=== PATIENT | male | born 1940 | race Caucasian/White ===

== ENCOUNTER → 2016-10-30 | Outpatient (REF) | payer MEDICARE, MEDICAID ==
[~2016-10-30] MED LIST: AMLO25TA PO; AMLO5TAB2 PO; NORV5TAB PO; ROXI1TAB2 PO; TYLE325T5 PO
[2016-10-30 13:16] LABS: ALBUMIN 4.2 GM/DL (3.2-5.2); ALBUMIN/GLOBULIN RATIO 1.14 (1.00-1.93); BILIRUBIN,TOTAL 0.8 MG/DL (0.2-1.0); CALCIUM LEVEL 9.1 MG/DL (8.8-10.2); CREATININE FOR GFR 1.44 MG/DL (0.70-1.30); GLOMERULAR FILTRATION RATE 50.5 (>42); POTASSIUM SERUM 4.9 MEQ/L (3.5-5.1); TOTAL PROTEIN 7.9 GM/DL (6.4-8.2)
== END | disposition home or self-care (01) ==
LOC: M SFHCADAM 09:29
PROVIDERS: ATTEND Physician Assistant
DX: I50.33 Acute on chronic diastolic (congestive) heart failure (principal)

== ENCOUNTER → 2017-01-28 | Outpatient (REF) | payer MEDICARE, MEDICAID ==
[2017-01-28 12:31] LABS: MEAN CORPUSCULAR HEMOGLOBIN 30.3 pg (27.0-33.0); MEAN CORPUSCULAR HGB CONC 34.3 g/dl (32.0-36.5); MEAN CORPUSCULAR VOLUME 88.4 fl (80.0-96.0); RED CELL DISTRIBUTION WIDTH 13.4 % (11.5-14.5)
[2017-01-28 12:59] LABS: ALBUMIN 3.9 GM/DL (3.2-5.2); ALBUMIN/GLOBULIN RATIO 1.18 (1.00-1.93); BILIRUBIN,TOTAL 0.4 MG/DL (0.2-1.0); CALCIUM LEVEL 9.3 MG/DL (8.8-10.2); CREATININE FOR GFR 1.33 MG/DL (0.70-1.30); GLOMERULAR FILTRATION RATE 55.4 (>42); POTASSIUM SERUM 4.9 MEQ/L (3.5-5.1); TOTAL PROTEIN 7.2 GM/DL (6.4-8.2)
== END ==
LOC: M SFHCADAM 08:04
PROVIDERS: ATTEND Physician Assistant
DX: I11.9 Hypertensive heart disease without heart failure (principal); N17.9 Acute kidney failure, unspecified

== ENCOUNTER → 2017-05-07 | Outpatient (REF) | payer MEDICARE, MEDICAID ==
[~2017-05-07] MED LIST changes: +ASPI1TAB PO; +LISI2.5T3 PO; +OMEP40CA2 PO
[2017-05-07 12:44] LABS: MEAN CORPUSCULAR HEMOGLOBIN 32.1 pg (27.0-33.0); MEAN CORPUSCULAR HGB CONC 35.4 g/dl (32.0-36.5); MEAN CORPUSCULAR VOLUME 90.5 fl (80.0-96.0); RED CELL DISTRIBUTION WIDTH 14.4 % (11.5-14.5); WHITE BLOOD COUNT 4.2 K/mm3 (4.0-10.0)
[2017-05-07 13:30] LABS: CALCIUM LEVEL 9.2 MG/DL (8.8-10.2); CREATININE FOR GFR 1.39 MG/DL (0.70-1.30); GLOMERULAR FILTRATION RATE 52.6 (>42); POTASSIUM SERUM 4.4 MEQ/L (3.5-5.1)
== END ==
LOC: M SFHCADAM 11:02
PROVIDERS: ATTEND Physician Assistant
DX: I12.9 Hypertensive chronic kidney disease with stage 1 through stage 4 chronic kidney disease, or unspecified chronic kidney disease (principal); N18.3 Chronic kidney disease, stage 3 (moderate); Z23 Encounter for immunization
CPT/HCPCS: 80048; 85027; 90732; G0009; G0463

== ENCOUNTER 2017-05-31 00:45 | Emergency (ER) | payer MEDICARE, MEDICAID ==
[~2017-05-31 00:45] MED LIST changes: -ASPI1TAB PO; -LISI2.5T3 PO; -OMEP40CA2 PO
[2017-05-31] MEDS ORDERED: LISI2.5T3 PO (01:10)
[2017-05-31] MEDS ORDERED: ASPI1TAB PO (01:10)
[2017-05-31] MEDS ORDERED: OMEP40CA2 PO (01:10)
--- NOTE | 2017-05-31 01:50 | REPUSA ---
CLINICAL HISTORY: Trauma. TECHNIQUE: Multiple axial CT images were obtained through the brain without IV contrast material. COMMENTS: There is normal configuration of sella turcica. There are no intra or extra-axial collections. There is no mass effect or midline shift. There is no evidence of hematoma formation. No hydrocephalus is p resent. The ventricles are symmetrical. No abnormal calcifications are present. There is diffuse age-appropriate cerebellar and cerebral atrophy with proportionally dilated ventricl es and cortical sulci. There are bilateral periventricular and subcortical white matter hypolucencies compatible with mild c hronic microvascular disease. Otherwise, no significant focal abnormalities are seen either in the posterior fossa or supratentoria l compartment. IMPRESSION: 1. Age-appropriate cerebellar and cerebral atrophy. 2. Mild chronic microvascular disease. 3. No evidence of acute intracranial pathology. Thank you for your kind referral of this patient.
[2017-05-31 02:42] LABS: BASO % 0.4 % (0.0-1.0); EOS # 0.1 K/mm3 (0.0-0.50); EOS % 1.5 % (0.0-3.0); LARGE UNSTAINED CELL # 0.1 K/mm3 (0.0-0.4); LARGE UNSTAINED CELL % 1.1 % (0.0-4.0); LYMPH # 0.9 K/mm3 (1.5-4.5); LYMPH % 11.1 % (24.0-44.0); MEAN CORPUSCULAR HEMOGLOBIN 31.6 pg (27.0-33.0); MEAN CORPUSCULAR HGB CONC 34.3 g/dl (32.0-36.5); MONO # 0.5 K/mm3 (0.0-0.8); MONO % 6.4 % (0.0-5.0); NEUTROPHILS # 6.1 K/mm3 (1.8-7.7); NEUTROPHILS % 79.6 % (36.0-66.0); PLATELET COUNT, AUTOMATED 192 k/mm3 (150-450); RED CELL DISTRIBUTION WIDTH 14.3 % (11.5-14.5); WHITE BLOOD COUNT 7.7 K/mm3 (4.0-10.0)
[2017-05-31 03:08] LABS: ANION GAP 8 MEQ/L (8-16); BLOOD UREA NITROGEN 17 MG/DL (7-18); CARBON DIOXIDE LEVEL 27 MEQ/L (21-32); CHLORIDE LEVEL 98 MEQ/L (98-107); CREATININE FOR GFR 1.39 MG/DL (0.70-1.30); GLOMERULAR FILTRATION RATE 52.6 (>42); GLUCOSE, FASTING 113 MG/DL (83-110); POTASSIUM SERUM 4.3 MEQ/L (3.5-5.1); SODIUM LEVEL 133 MEQ/L (136-145)
[2017-05-31] MEDS ORDERED: ISOVUE-370 76% 100ML VIAL (Q9967) As Ordered ONE (03:09)
--- NOTE | 2017-05-31 04:50 | REPUSA ---
CLINICAL HISTORY: Pain, trauma. TECHNIQUE: Multiple incremental axial, coronal and oblique images are obtained from the thoracic inle t to the upper abdomen. Intravenous contrast material was administered as per pulmonary embolism prot ocol. COMMENTS: There is excellent opacification of pulmonary arterial system without evidence for pulmonary embolism . Aorta is of normal caliber without evidence for dissection or aneurysm. There is no evidence of pleural or parenchymal mass. There are no pleural effusions. There is no evid ence of hilar or mediastinal lymphadenopathy. The heart is severely enlarged. Mild CHF is noted. Images of the upper abdomen demonstrate no evidence of adrenal mass. Small hiatal hernia is noted. The bony structures are free of lytic or blastic lesions. Multilevel degenerative changes are seen in volving the visualized thoracolumbar spine. No acute fracture is seen. There are old fractures involv ing several thoracic vertebral bodies. Scattered calcifications are seen involving the aorta and major branches compatible with atherosclero sis. IMPRESSION: No evidence for pulmonary embolism. The heart is severely enlarged. Mild CHF is noted. No acute fracture is seen. There are old fractures involving several thoracic vertebral bodies. Thank you for your kind referral of this patient.
[2017-05-31 08:08] VITALS: BP 134/90
--- NOTE | 2017-05-31 08:18 | REP ---
Right shoulder three views: There is acromioclavicular osteoarthritis. The glenohumeral articulation is unremarkable. There are faintly visible calcifications lateral to the humeral head on one-view compatible with calcific tendonitis. There is no fracture or dislocation. There are lucencies in the proximal humeral shaft and onion skinning of the proximal humeral shaft cortex on one-view, concerning for an aggressive or malignant process. MRI or radionuclide bone scan follow-up might be considered. Signed by Demetri Fitzgerald MD 05/31/2017 08:10 A
--- NOTE | 2017-05-31 08:28 | REP ---
Portable chest, 02:27 a.m., single frontal view, patient sitting: The lung ovalle are clear. Cardiac size appears enlarged although there is magnification from positioning. The neil, mediastinum, and bony thorax are unremarkable. Impression: Essentially negative portable chest. Signed by Demetri Fitzgerald MD 05/31/2017 08:19 A
--- NOTE | 2017-06-02 15:54 | ECGEPIP ---
Stationary ECG Study [facility] - ED Test Date: 2017-05-31 Pat Name: DAWSON NATHAN Department: Room: - Gender: M Utility Assembler: jake : 1940 Requested By: MARCOS Munoz Order Number: [id number] Reading MD: Philipp Major Measurements Intervals [place] Rate: 91 P: [place]: 0 QRS: 81 QRSD: 102 T: -1 QT: 342 QTc: 421 Interpretive Statements ATRIAL FIBRILLATION WITH ABERRANT CONDUCTION OR VENTRICULAR PREMATURE COMPLEXES NONSPECIFIC ST & T-WAVE ABNORMALITY RHYTHM CHANGE COMPARED TO 04/09/15 Electronically Signed On 06-02-2017 15:54:23 EDT by Philipp Major
== END 2017-05-31 09:08 | disposition home or self-care (01) ==
LOC: M ED 00:45
DX: R07.9 Chest pain, unspecified (principal); S09.90XA Unspecified injury of head, initial encounter; W22.8XXA Striking against or struck by other objects, initial encounter; Y92.71 Barn as the place of occurrence of the external cause; Y93.89 Activity, other specified; Y99.8 Other external cause status; I11.0 Hypertensive heart disease with heart failure; I50.9 Heart failure, unspecified; K21.9 Gastro-esophageal reflux disease without esophagitis; Z79.82 Long term (current) use of aspirin; Z87.891 Personal history of nicotine dependence
CPT/HCPCS: 36415; 70450; 71010; 71275; 73030; 80048; 82550; 82553; 83880; 84484; 85025; 93005; 99285; Q9967

== ENCOUNTER → 2017-06-05 | Outpatient (REF) | payer MEDICARE, MEDICAID ==
[~2017-06-05] MED LIST changes: +ASPI1TAB PO; +LISI2.5T3 PO; +OMEP40CA2 PO
[2017-06-05 13:10] LABS: CALCIUM LEVEL 8.9 MG/DL (8.8-10.2); CREATININE FOR GFR 1.43 MG/DL (0.70-1.30); GLOMERULAR FILTRATION RATE 50.9 (>42); POTASSIUM SERUM 4.5 MEQ/L (3.5-5.1)
== END ==
LOC: M SFHCADAM 10:50
PROVIDERS: ATTEND Physician Assistant
DX: N18.3 Chronic kidney disease, stage 3 (moderate) (principal)

== ENCOUNTER → 2017-06-10 | Outpatient (CLI) | payer MEDICARE, MEDICAID ==
--- NOTE | 2017-06-10 13:45 | REP ---
MRI RIGHT SHOULDER: TECHNIQUE: Axial T2 fat sat, gradient echo, sagittal oblique T2 fat sat, coronal oblique T1, T2 fat sat. There is full thickness tear of the supraspinatus tendon, the musculotendinous junction appears to be retracted approximately 1.5 cm. The other rotator cuff tendons appear intact. There are moderate hypertrophic degenerative changes of the acromioclavicular joint with downward sloping of the acromion. Biceps tendon is within the bicipital grove and no tenosynovitis. There is no Hill-Sachs deformity. There is no abnormal signal in the deltoid muscle. Biceps labral complex is grossly intact. I do not see evidence of a labral tear. There is a tiny amount of subchondral marrow edema in the humeral head. A tiny amount of fluid is seen in the subacromial bursa. IMPRESSION: Full thickness tear supraspinatus tendon with retraction of the musculotendinous junction approximately 1.5 cm. Moderate hypertrophic degenerative changes of the acromioclavicular joint with downward sloping of the acromion. No definite labral tear. Signed by Demetri Andino MD 06/10/2017 04:56 P
--- NOTE | 2017-06-10 14:28 | REP ---
MRI RIGHT HUMERUS WITHOUT IV CONTRAST: Multiple sequences obtained in the axial, coronal, and sagittal planes. The right humerus demonstrates normal marrow signal. There is no significant marrow edema. There is no occult fracture. No bone lesion is seen. Surrounding soft tissue structures demonstrate no abnormal signal. No definite cystic or solid nodule is seen. No abnormal signal or edema is seen in any of the visualized musculature of the right upper arm. Note is made of a full thickness tear of the supraspinatus tendon with moderate hypertrophic degenerative changes at the acromioclavicular joint, better seen on today's MRI of the right shoulder. IMPRESSION: Essentially unremarkable MRI right humerus, as discussed above. Signed by Demetri Andino MD 06/10/2017 05:23 P
== END ==
LOC: M RAD 09:50
PROVIDERS: ATTEND Physician Assistant Medical
DX: S46.911A Strain of unspecified muscle, fascia and tendon at shoulder and upper arm level, right arm, initial encounter (principal); M19.011 Primary osteoarthritis, right shoulder; X58.XXXA Exposure to other specified factors, initial encounter; Y92.9 Unspecified place or not applicable; Y93.9 Activity, unspecified; Y99.9 Unspecified external cause status

== ENCOUNTER → 2017-12-22 | Outpatient (REF) | payer MEDICARE, MEDICAID ==
[2017-12-22 14:06] LABS: HEMATOCRIT 38.6 % (42.0-52.0); MEAN CORPUSCULAR HEMOGLOBIN 30.9 pg (27.0-33.0); MEAN CORPUSCULAR HGB CONC 33.7 g/dl (32.0-36.5); MEAN CORPUSCULAR VOLUME 91.7 fl (80.0-96.0); PLATELET COUNT, AUTOMATED 200 10^3/uL (150-450); RED BLOOD COUNT 4.21 10^6/uL (4.30-6.10); RED CELL DISTRIBUTION WIDTH 12.8 % (11.5-14.5); WHITE BLOOD COUNT 6.1 10^3/uL (4.0-10.0)
[2017-12-22 14:14] LABS: ALBUMIN 4.2 GM/DL (3.2-5.2); ALBUMIN/GLOBULIN RATIO 1.27 (1.00-1.93); ALKALINE PHOSPHATASE 110 U/L (45-117); ALT/SGPT 22 U/L (12-78); ANION GAP 5 MEQ/L (8-16); AST/SGOT 19 U/L (7-37); BILIRUBIN,TOTAL 0.4 MG/DL (0.2-1.0); BLOOD UREA NITROGEN 20 MG/DL (7-18); CARBON DIOXIDE LEVEL 30 MEQ/L (21-32); CHLORIDE LEVEL 104 MEQ/L (98-107); CHOLESTEROL LEVEL 198 MG/DL (<200); CREATININE FOR GFR 1.41 MG/DL (0.70-1.30); GLOMERULAR FILTRATION RATE 51.6 (>42); GLUCOSE, FASTING 100 MG/DL (70-100); HDL CHOLESTEROL 66 MG/DL (>40); LDL CHOLESTEROL 109.8 MG/DL (<100); NON-HDL-C 132 MG/DL; POTASSIUM SERUM 5.1 MEQ/L (3.5-5.1); SODIUM LEVEL 139 MEQ/L (136-145); TOTAL PROTEIN 7.5 GM/DL (6.4-8.2); TRIGLYCERIDES LEVEL 111 MG/DL (<150)
== END ==
LOC: M SFHCADAM 13:24
DX: E55.9 Vitamin D deficiency, unspecified (principal); E78.5 Hyperlipidemia, unspecified; D64.9 Anemia, unspecified
CPT/HCPCS: 80053

== ENCOUNTER → 2017-12-31 | Outpatient (REF) | payer MEDICARE, MEDICAID ==
[2017-12-31 13:17] LABS: FREE T4 1.29 NG/DL (0.76-1.46); THYROID STIMULATING HORMONE 0.602 uIU/ML (0.358-3.740)
== END ==
LOC: M SFHCADAM 10:34
DX: I48.91 Unspecified atrial fibrillation (principal)
CPT/HCPCS: 84443

== ENCOUNTER → 2018-02-17 | Outpatient (REF) | payer MEDICARE, MEDICAID ==
[2018-02-17 12:54] LABS: HEMATOCRIT 35.1 % (42.0-52.0); HEMOGLOBIN 11.9 g/dl (13.5-17.5); MEAN CORPUSCULAR HGB CONC 33.9 g/dl (32.0-36.5); MEAN CORPUSCULAR VOLUME 91.4 fl (80.0-96.0); PLATELET COUNT, AUTOMATED 235 10^3/uL (150-450); RED BLOOD COUNT 3.84 10^6/uL (4.30-6.10); RED CELL DISTRIBUTION WIDTH 13.7 % (11.5-14.5); WHITE BLOOD COUNT 4.3 10^3/uL (4.0-10.0)
[2018-02-17 13:23] LABS: TOTAL 25(OH) VITAMIN D 38.8 NG/ML (30.0-100.0)
[2018-02-17 13:33] LABS: ALBUMIN 3.8 GM/DL (3.2-5.2); ALBUMIN/GLOBULIN RATIO 1.06 (1.00-1.93); ALKALINE PHOSPHATASE 90 U/L (45-117); ALT/SGPT 21 U/L (12-78); ANION GAP 9 MEQ/L (8-16); AST/SGOT 30 U/L (7-37); BILIRUBIN,TOTAL 0.5 MG/DL (0.2-1.0); BLOOD UREA NITROGEN 18 MG/DL (7-18); CARBON DIOXIDE LEVEL 26 MEQ/L (21-32); CHLORIDE LEVEL 106 MEQ/L (98-107); CHOLESTEROL LEVEL 124 MG/DL (<200); CHOLESTEROL RISK RATIO 2.339 (<5); CREATININE FOR GFR 1.29 MG/DL (0.70-1.30); GLOMERULAR FILTRATION RATE 57.2 (>42); GLUCOSE, FASTING 96 MG/DL (70-100); HDL CHOLESTEROL 53 MG/DL (>40); LDL CHOLESTEROL 55.6 MG/DL (<100); NON-HDL-C 71 MG/DL; POTASSIUM SERUM 4.2 MEQ/L (3.5-5.1); SODIUM LEVEL 141 MEQ/L (136-145); TOTAL PROTEIN 7.4 GM/DL (6.4-8.2); TRIGLYCERIDES LEVEL 77 MG/DL (<150)
== END ==
LOC: M SFHCADAM 09:39
DX: N18.3 Chronic kidney disease, stage 3 (moderate) (principal); E78.5 Hyperlipidemia, unspecified
CPT/HCPCS: 80053

== ENCOUNTER → 2018-04-13 | Outpatient (REF) | payer MEDICARE, MEDICAID ==
[2018-04-16 00:06] LABS: H PYLORI STOOL ANTIGEN Negative (Negative)
== END ==
LOC: M LAB REF 12:15
DX: A04.8 Other specified bacterial intestinal infections (principal)
CPT/HCPCS: 87338

== ENCOUNTER → 2018-11-04 | Outpatient (REF) | payer MEDICARE, MEDICAID ==
[~2018-11-04] MED LIST changes: -AMLO5TAB2 PO; +AMLO5TAB6 PO; -LISI2.5T3 PO; +LISI2.5T5 PO
[2018-11-04 12:59] LABS: HEMATOCRIT 37.8 % (42.0-52.0); HEMOGLOBIN 12.9 g/dl (13.5-17.5); MEAN CORPUSCULAR HEMOGLOBIN 31.2 pg (27.0-33.0); MEAN CORPUSCULAR HGB CONC 34.1 g/dl (32.0-36.5); MEAN CORPUSCULAR VOLUME 91.5 fl (80.0-96.0); PLATELET COUNT, AUTOMATED 182 10^3/uL (150-450); RED BLOOD COUNT 4.13 10^6/uL (4.30-6.10)
[2018-11-04 13:09] LABS: ALT/SGPT 26 U/L (12-78); BILIRUBIN,TOTAL 0.5 MG/DL (0.2-1.0); BLOOD UREA NITROGEN 31 MG/DL (7-18); CALCIUM LEVEL 9.1 MG/DL (8.8-10.2); CARBON DIOXIDE LEVEL 27 MEQ/L (21-32); CHLORIDE LEVEL 106 MEQ/L (98-107); CHOLESTEROL LEVEL 137 MG/DL (<200); CHOLESTEROL RISK RATIO 2.014 (<5); CREATININE FOR GFR 1.22 MG/DL (0.70-1.30); GLOMERULAR FILTRATION RATE > 60.0 (>35); GLUCOSE, FASTING 80 MG/DL (70-100); HDL CHOLESTEROL 68 MG/DL (>40); LDL CHOLESTEROL 51 MG/DL (<100); NON-HDL-C 69 MG/DL; POTASSIUM SERUM 4.7 MEQ/L (3.5-5.1); SODIUM LEVEL 138 MEQ/L (136-145); TOTAL PROTEIN 7.3 GM/DL (6.4-8.2); TRIGLYCERIDES LEVEL 88 MG/DL (<150)
== END ==
LOC: M SFHCADAM 10:17
PROVIDERS: ATTEND Family Medicine
DX: E78.5 Hyperlipidemia, unspecified (principal); I48.91 Unspecified atrial fibrillation; N18.3 Chronic kidney disease, stage 3 (moderate)
CPT/HCPCS: 80053; 80061; 84439; 84443; 85027; 90682; G0008; G0463

== ENCOUNTER → 2021-01-22 | Outpatient (REF) | payer MEDICARE, MEDICAID ==
[~2021-01-22] MED LIST changes: +AMLO1TAB24 PO; -AMLO5TAB6 PO; -ASPI1TAB PO; +ASPI81TA26 PO; +LISI2.5T2 PO; -LISI2.5T5 PO; -OMEP40CA2 PO; +OMEP40CA97 PO
[2021-01-22 13:04] LABS: HEMATOCRIT 41.8 % (42.0-52.0); HEMOGLOBIN 13.7 g/dl (13.5-17.5); MEAN CORPUSCULAR HEMOGLOBIN 31.1 pg (27.0-33.0); MEAN CORPUSCULAR HGB CONC 32.8 g/dl (32.0-36.5); MEAN CORPUSCULAR VOLUME 94.8 fl (80.0-96.0); PLATELET COUNT, AUTOMATED 190 10^3/uL (150-450); RED BLOOD COUNT 4.41 10^6/uL (4.30-6.10); WHITE BLOOD COUNT 7.2 10^3/uL (4.0-10.0)
[2021-01-22 13:30] LABS: ALBUMIN 3.9 GM/DL (3.2-5.2); ALT/SGPT 24 U/L (12-78); BILIRUBIN,TOTAL 0.6 MG/DL (0.2-1.0); BLOOD UREA NITROGEN 25 MG/DL (7-18); CALCIUM LEVEL 9.5 MG/DL (8.8-10.2); CARBON DIOXIDE LEVEL 32 MEQ/L (21-32); CHLORIDE LEVEL 104 MEQ/L (98-107); CHOLESTEROL LEVEL 153 MG/DL (<200); CHOLESTEROL RISK RATIO 1.779 (<5); GLOMERULAR FILTRATION RATE > 60.0 (>35); GLUCOSE, FASTING 101 MG/DL (70-100); HDL CHOLESTEROL 86 MG/DL (>40); LDL CHOLESTEROL 59 MG/DL (<100); NON-HDL-C 67 MG/DL; POTASSIUM SERUM 4.9 MEQ/L (3.5-5.1); SODIUM LEVEL 137 MEQ/L (136-145); TOTAL PROTEIN 7.1 GM/DL (6.4-8.2); TRIGLYCERIDES LEVEL 41 MG/DL (<150)
== END ==
LOC: M SFHCADAM 09:06
PROVIDERS: ATTEND Family Medicine
DX: N18.30 Chronic kidney disease, stage 3 unspecified (principal); I13.10 Hypertensive heart and chronic kidney disease without heart failure, with stage 1 through stage 4 chronic kidney disease, or unspecified chronic kidney disease; E78.5 Hyperlipidemia, unspecified

== ENCOUNTER 2021-08-02 06:56 | Inpatient (IN) | payer MEDICARE, MEDICAID ==
[~2021-08-02] VITALS: Ht 170.2 cm; Wt 85.9 kg
[~2021-08-02 06:56] MED LIST changes: -LISI2.5T2 PO; +LISI2.5T9 PO; +OMEP40CA4 PO; -OMEP40CA97 PO
[2021-08-02] MEDS ORDERED: PANT40TA29 PO (07:17)
[2021-08-02] MEDS ORDERED: METO1TAB32 PO (07:17)
[2021-08-02] MEDS ORDERED: ATOR40TA75 PO (07:17)
[2021-08-02] MEDS ORDERED: ELIQ5TAB PO (07:17)
[2021-08-02 07:35] LABS: BASO % 0.6 % (0.0-1.0); EOS % 0.4 % (0.0-3.0); HEMOGLOBIN 13.8 g/dl (13.5-17.5); LYMPH # 0.3 10^3/uL (1.5-5.0); LYMPH % 5.3 % (24.0-44.0); MEAN CORPUSCULAR HEMOGLOBIN 31.4 pg (27.0-33.0); MEAN CORPUSCULAR HGB CONC 33.7 g/dl (32.0-36.5); MEAN CORPUSCULAR VOLUME 93.4 fl (80.0-96.0); MONO # 0.5 10^3/uL (0.0-0.8); MONO % 10.6 % (2.0-8.0); NEUTROPHILS # 3.9 10^3/uL (1.5-8.5); NEUTROPHILS % 82.9 % (36.0-66.0); PLATELET COUNT, AUTOMATED 189 10^3/uL (150-450); RED BLOOD COUNT 4.39 10^6/uL (4.30-6.10); WHITE BLOOD COUNT 4.7 10^3/uL (4.0-10.0)
[2021-08-02 07:50] LABS: INR 1.34
[2021-08-02 07:52] LABS: D-DIMER QUANT 1096.78 ng/ml (<500)
--- NOTE | 2021-08-02 08:11 | REP ---
INDICATION: DYSPNEA/COUGH COMPARISON: None TECHNIQUE: Portable AP view of the chest FINDINGS: Cardiomegaly and chronic appearing changes. No obvious focal consolidation, effusion, or pneumothorax. Skeletal structures intact. IMPRESSION: Cardiomegaly and chronic appearing changes. No focal consolidation or effusion. <Electronically signed by Almas Price > 08/02/21 0829
[2021-08-02 08:20] LABS: ALBUMIN 3.5 GM/DL (3.2-5.2); ALT/SGPT 30 U/L (12-78); BILIRUBIN,DIRECT < 0.1 MG/DL (0.0-0.2); BILIRUBIN,TOTAL 0.7 MG/DL (0.2-1.0); BLOOD UREA NITROGEN 18 MG/DL (7-18); CALCIUM LEVEL 8.4 MG/DL (8.8-10.2); CARBON DIOXIDE LEVEL 31 MEQ/L (21-32); CHLORIDE LEVEL 98 MEQ/L (98-107); CK-MB VALUE MASS 5.5 NG/ML (<3.6); CPK CREATINE PHOSPHOKINASE 252 U/L (39-308); CREATININE FOR GFR 1.08 MG/DL (0.70-1.30); GLOMERULAR FILTRATION RATE > 60.0 (>35); GLUCOSE, FASTING 126 MG/DL (70-100); MB/CK RELATIVE INDEX 2.18 (< OR =4); NT-PRO BNP 3127 PG/ML (<450); POTASSIUM SERUM 5.5 MEQ/L (3.5-5.1); SODIUM LEVEL 133 MEQ/L (136-145); THYROID STIMULATING HORMONE 0.915 uIU/ML (0.358-3.740); THYROXINE (T4) 8.6 UG/DL (4.5-12.0); TOTAL PROTEIN 7.7 GM/DL (6.4-8.2); TROPONIN I < 0.02 NG/ML (< 0.10)
[2021-08-02] MEDS ORDERED: FUROSEMIDE 40MG/4ML VIAL (J1940) IV ONE (09:00)
[2021-08-02] MEDS: PANTOPRAZOLE 40MG TAB (PROTONIX) PO SCH (09:00)
[2021-08-02] MEDS: METOPROLOL SUCC *XL* 25MG TAB (TopROL *XL*) PO SCH (09:00)
[2021-08-02] MEDS: LISINOPRIL *2.5 MG* TAB PO SCH (09:00)
--- NOTE | 2021-08-02 11:36 | HPEPDOC ---
[facility] Medical History & Physical Date of Admission Aug 02, 2021 Date of Service: Aug 02, 2021 History and Physical CHIEF COMPLAINT: "I felt short of breath" HISTORY OF PRESENT ILLNESS: 80-year-old male with a past medical history of hypertension, atrial fibrillation, and GERD presented to the emergency department with complaints of shortness of breath. He began to feel short of breath approximately a week ago and it has been progressively getting worse. He is normally able to walk around his property and lay flat but lately has not been able to. He denied waking up from sleep feeling short of breath. He also reports having loose stools for 2 to 3 days now. He has not noted any blood in the stool. He denied fever, chills, cough, chest pain, abdominal pain, nausea and vomiting. In the emergency room department he was noted to have an elevated BNP and have electrolyte abnormalities; he also tested positive for RSV. After receiving 40 mg of IV Lasix he reported he felt better. CODE STATUS was discussed, he wishes to be full code. PAST MEDICAL HISTORY: As mentioned above PAST SURGICAL HISTORY: 1. Hiatal hernia SOCIAL HISTORY: Lives at home. Denies smoking, drinking, use of recreational drugs. FAMILY HISTORY: Mother and brother had coronary artery disease ALLERGIES: Please see below. REVIEW OF SYSTEMS: 10 point review of system was negative except for what is noted in the [facility] HOME MEDICATIONS: Please see below. PHYSICAL EXAMINATION: VITAL SIGNS: Please see below General: Lying in bed, no acute distress Head/Neck/Throat: Trachea midline, mucous membranes moist Eyes: Sclera anicteric, no erythema or discharge appreciated bilaterally Thorax: He is on 4 L nasal cannula, bronchospastic and wheezing appreciated bilaterally Cardiovascular: Normal rate, regular rhythm, normal S1, S2; 2+ pitting edema to midshin, dorsalis pedis as well as radial pulses are palpable Abdomen: Bowel sounds present, soft/nontender/nondistended Genitourinary: No CVA tenderness, no Pizano in place Musculoskeletal: Moving all extremities, no edema Skin: Warm, dry Neurologic: AAOx3, speech fluent and goal-directed, no focal deficits, grossly intact LABORATORY DATA: See below. IMAGING: Chest x-ray done showed no acute pathology MICROBIOLOGY: Please see below. ASSESSMENT/PLAN: #Hypoxia -Secondary to RSV and possibly congestive heart failure #Viral bronchitis -Secondary to RSV. Support with albuterol inhalers. #? Possible CHF, working diagnosis -Elevated BNP and lower extremity edema. -Furosemide 40 mg twice daily, monitor I's/O, daily weights -Follow-up on echocardiogram #Elevated D-dimer -Patient is already on systemic anticoagulation. This may be due to acute infection with underlying advanced age. #Atrial fibrillation -Rate is controlled at this time. Continue with metoprolol and systemic anticoagulation with apixaban #Hypertension -Continue with metoprolol and lisinopril. #GERD -Continue pantoprazole #DVT prophylaxis -Offered by [employer] Update: 1800 patient went into respiratory distress requiring intubation. Judith, sister was updated in regards to worsening respiratory status and patient requiring intubation. Patient's brother is hard of hearing, therefore his took updates as well. Care transitioned to ICU - Logistics Associate notified and in agreement. Vital Signs Vital Signs Date Time Temp Pulse Resp B/P (MAP) Pulse Ox O2 Delivery O2 Flow Rate FiO2 08/02/21 09:30 153/91 (111) 08/02/21 09:26 90 94 08/02/21 07:12 98.9 20 Room Air Laboratory Data Labs 24H Laboratory Tests 2 08/02/21 07:21: Immature Granulocyte % (Auto) 0.2, Neutrophils (%) (Auto) 82.9H, Lymphocytes (%) (Auto) 5.3L, Monocytes (%) (Auto) 10.6H, Eosinophils (%) (Auto) 0.4, Basophils (%) (Auto) 0.6, Neutrophils # (Auto) 3.9, Lymphocytes # (Auto) 0.3L, Monocytes # (Auto) 0.5, Eosinophils # (Auto) 0.0, Basophils # (Auto) 0.0, Nucleated Red Blood Cells % (auto) 0.0, Prothrombin Time 17.0H, Prothromb Time International Ratio 1.34, D-Dimer, Quantitative 1096.78H, Anion Gap 4L, Glomerular Filtration Rate > 60.0, Calcium Level 8.4L, Total Bilirubin 0.7, Direct Bilirubin < 0.1, Aspartate Amino Transf (AST/SGOT) 66H, Alanine Aminotransferase (ALT/SGPT) 30, Alkaline Phosphatase 106, Total Creatine Kinase 252, Creatine Kinase MB 5.5H, Creatine Kinase MB Relative Index 2.18, Troponin I < 0.02, TE-Obs-H-Type Natriuretic Peptide 3127H, Total Protein 7.7, Albumin 3.5, Albumin/Globulin Ratio 0.8, Thyroid Stimulating Hormone (TSH) 0.915, Thyroxine (T4) 8.6 CBC/BMP Laboratory Tests 08/02/21 07:21 Microbiology Microbiology 08/02/21 Respiratory Virus Panel (PCR) ([facility]) - Final, Complete Respiratory Syncytial Virus Home Medications Scheduled Amlodipine Besylate (Amlodipine Besylate) 5 Mg Tab, 5 MG PO DAILY Apixaban (Eliquis) 5 Mg Tablet, 5 MG PO BID Atorvastatin Calcium (Atorvastatin Calcium) 40 Mg Tablet, 40 MG PO DAILY Lisinopril (Lisinopril) 2.5 Mg Tab, 2.5 MG PO DAILY Metoprolol Succinate (Metoprolol Succinate) 25 Mg Tab.er.24h, 25 MG PO DAILY Pantoprazole Sodium (Pantoprazole Sodium) 40 Mg Tablet.dr, 40 MG PO DAILY Allergies Coded Allergies: No Known Allergies (Unverified , 03/09/15) A-FIB/CHADSVASC A-FIB History Current/History of A-Fib/PAF?: Yes Current PO Anticoag Therapy: Yes BLANCA JACKSON M.D. Aug 02, 2021 10:43
[2021-08-02] MEDS: amLODIPine 5 MG TAB PO SCH (11:40)
[2021-08-02] MEDS: ALBUTEROL SULFATE 2.5 MG/0.5 ML INH NEB SOLN NEB SCH ×2 (12:00→15:46)
[2021-08-02] MEDS ORDERED: HOME MED LIST COMPLETE! XX SCH (12:20)
[2021-08-02 15:51] LABS: BLOOD UREA NITROGEN 17 MG/DL (7-18); CALCIUM LEVEL 9.1 MG/DL (8.8-10.2); CARBON DIOXIDE LEVEL 35 MEQ/L (21-32); CHLORIDE LEVEL 96 MEQ/L (98-107); CREATININE FOR GFR 1.12 MG/DL (0.70-1.30); GLOMERULAR FILTRATION RATE > 60.0 (>35); GLUCOSE, FASTING 121 MG/DL (70-100); MAGNESIUM LEVEL 1.7 MG/DL (1.8-2.4); POTASSIUM SERUM 3.8 MEQ/L (3.5-5.1); SODIUM LEVEL 135 MEQ/L (136-145)
[2021-08-02] MEDS ORDERED: MAGNESIUM OXIDE 400MG TAB (MAG-OX) PO ONE (16:50)
[2021-08-02] MEDS ORDERED: FUROSEMIDE 40MG/4ML VIAL (J1940) IV SCH (17:00)
[2021-08-02] MEDS ORDERED: FUROSEMIDE 100MG/10ML VIAL (J1940) IV ONE (18:40)
[2021-08-02] MEDS ORDERED: ISOVUE-370 76% 100ML VIAL As Ordered ONE (18:43)
--- NOTE | 2021-08-02 18:51 | ECGEPIP ---
[facility] - ED Test Date: 2021-08-02 Pat Name: DAWSON NATHAN Department: Room: [place] [address] Gender: Male Institutional Aide: CJ : 1940 Requested By: VALENTINA Jasmine Order Number: [id number] Reading MD: Philipp Major Measurements Intervals [place] Rate: 89 P: [place]: QRS: -13 QRSD: 88 T: 85 QT: 354 QTc: 430 Interpretive Statements Atrial fibrillation Nonspecific ST and T wave abnormality SIMILAR TO 05/31/17 Electronically Signed on 08-02-2021 18:50:47 EDT by Philipp Major
[2021-08-02] MEDS ORDERED: LABETALOL 100MG/20ML VIAL IV PRN (19:00)
[2021-08-02] MEDS ORDERED: ALBUTEROL SULFATE 2.5 MG/0.5 ML INH NEB SOLN NEB PRN (19:00)
[2021-08-02] MEDS ORDERED: LABETALOL 100MG/20ML VIAL IV ONE (19:00)
[2021-08-02] MEDS ORDERED: lisinopriL 40 MG TAB PO ONE (19:00)
[2021-08-02] MEDS ORDERED: PROPOFOL 1,000 MG/100 ML VIAL As Ordered ONE (19:21)
[2021-08-02 19:23] LABS: ABG BASE EXCESS -2.9 (-2.0-2.0); ABG HCO3 36.1 MEQ/L (22.0-26.0); ABG O2 SATURATION 65.4 % (95.0-99.0); ABG PARTIAL PRESSURE CO2 197.6 mmHg (35.0-45.0); ABG PARTIAL PRESSURE O2 50.2 mmHg (75.0-100.0); ABG STANDARD HCO3 21.3 MEQ/L (22.0-26.0); ABG TOTAL CO2 42.1 MEQ/L (23.0-31.0); ABG pH (ARTERIAL) 6.879 UNITS (7.350-7.450)
--- NOTE | 2021-08-02 19:34 | REPVR ---
PROCEDURE INFORMATION: Exam: CTA Chest With Contrast Exam date and time: 08/02/2021 7:11 PM Age: 80 years old Clinical indication: Shortness of breath; Additional info: Increasing hypoxia, tachycardia TECHNIQUE: Imaging protocol: Computed tomographic angiography of the chest with contrast. 3D rendering (Not supervised by radiologist): MIP and/or 3D reconstructed images were created by the technologist. Radiation optimization: All CT scans at this facility use at least one of these dose optimization techniques: automated exposure control; mA and/or kV adjustment per patient size (includes targeted exams where dose is matched to clinical indication); or iterative reconstruction. Contrast material: ISOVUE 370; Contrast volume: 75 ml; Contrast route: INTRAVENOUS (IV); COMPARISON: CT ANGIO CHEST 05/31/2017 3:07 AM FINDINGS: Pulmonary arteries: Central pulmonary arteries show no intraluminal defect suggestive of clot. Aorta: Thoracic aorta is ectatic and atherosclerotic. No focal aneurysm or dissection. Lungs: Consolidative changes in the lung bases with atelectasis, and patchy bilateral multifocal lung infiltrates concerning for COVID-19 pneumonia. Pleural spaces: Small dependent pleural effusions with no pneumothorax. Heart: Peripheral pulmonary artery evaluation limited by cardiac and respiratory motion artifact. Multi-chamber cardiac dilatation is noted. No evidence of acute pulmonary edema. Mediastinal space: Esophagus is mildly distended throughout its length. No obvious mass. Lymph nodes: Prominent mediastinal lymph nodes. Bones/joints: Bony structures show no acute fracture or destructive process. Soft tissues: No asymmetric abnormality of the extrathoracic soft tissues. IMPRESSION: 1. No evidence of acute, central pulmonary embolus. Peripheral pulmonary arterial evaluation is limited by cardiac and respiratory motion artifact. 2. Multifocal lung infiltrates suggesting a multifocal infectious process such as COVID-19 pneumonia, with areas of posterior basilar consolidation and likely reactive mediastinal lymph nodes. 3. Fullness of the esophagus over long segment, difficult to assess given the degree of motion Electronically signed by: Rohan Vasquez On 08/02/2021 19:33:35 PM
[2021-08-02] MEDS ORDERED: ETOMIDATE INJ 20MG/10ML VIAL IV STA (19:41)
[2021-08-02] MEDS ORDERED: propofoL 1,000 MG in IV 1 EA IV SCH (19:45)
[2021-08-02] MEDS ORDERED: ROCURONIUM BROMIDE 50 MG/5 ML VIAL IV SCH (19:45)
[2021-08-02] MEDS ORDERED: MAG SULF 1GM/100ML (MAG RUN) 1 GM in IV 1 EA IV ONE (20:00)
--- NOTE | 2021-08-02 20:05 | REPVR ---
PROCEDURE INFORMATION: Exam: CT Head Without Contrast Exam date and time: 08/02/2021 7:11 PM Age: 80 years old Clinical indication: Altered mental status/memory loss; Additional info: Acute AMS TECHNIQUE: Imaging protocol: Computed tomography of the head without contrast. Radiation optimization: All CT scans at this facility use at least one of these dose optimization techniques: automated exposure control; mA and/or kV adjustment per patient size (includes targeted exams where dose is matched to clinical indication); or iterative reconstruction. COMPARISON: CT Head without contrast 05/31/2017 1:17 AM FINDINGS: Brain: No intracranial mass, focal mass effect or midline shift. No acute intracranial hemorrhage. Mild decreased attenuation in periventricular/centrum semiovale white matter. No focal effacement of cortical sulci to indicate acute cortical infarct. Prominent ventricles and CSF spaces suggest parenchymal volume loss. Paranasal sinuses: Mild pansinus mucosal thickening is present. Mastoid air cells: Mastoid air cells are normally aerated. Orbital cavity: Visualized globes and orbits are unremarkable. Bones/joints: No calvarial fracture or destructive process. Soft tissues: No focal extracranial soft tissue swelling. IMPRESSION: 1. No acute intracranial abnormality. 2. Atrophy and chronic microangiopathic change in supratentorial white matter. Electronically signed by: Rohan Vasquez On 08/02/2021 20:05:22 PM
--- NOTE | 2021-08-02 20:10 | REP ---
INDICATION: to be done following intubation COMPARISON: 08/02/2021 TECHNIQUE: Portable AP view of the chest FINDINGS: Endotracheal tube extends 2 cm from the papa. Nasogastric tube courses below left hemidiaphragm. The mediastinum and cardiac silhouette are stable and grossly within normal limits for portable technique. The lung ovalle demonstrate scattered patchy opacities along with bibasilar consolidations and suspected small pleural effusions. IMPRESSION: 1. Endotracheal tube 2 cm from the papa. 2. Diffuse bilateral opacities with lower lobe consolidations and pleural effusions significantly increased from prior examination. <Electronically signed by Almas Price > 08/02/212005
[2021-08-02] MEDS: IPRATROPIUM 0.5MG/ALBUTEROL 2.5MG INH SOL UD 3ML (DUONEB) NEB SCH (20:32)
--- NOTE | 2021-08-02 20:43 | HPEPDOC ---
[facility] Medical History & Physical Date of Admission Aug 02, 2021 Date of Service: Aug 02, 2021 Primary Care Physician: Danilo Shukla MD Attending Physician: BO CLEMONS MD History and Physical CHIEF COMPLAINT: Shortness of breath HISTORY OF PRESENT ILLNESS: This is a 80-year-old gentleman with past medical history of hypertension, atrial fibrillation on Eliquis, and GERD who presented to the emergency department with a complaint of shortness of breath. He was found to have RSV bronchiolitis and pneumonia. Patient is currently intubated and sedated. Therefore, history was obtained from hospitalist and emergency department. He started feeling shortness of breath about a week ago and was progressively getting worse. Shortness of breath was worsened with exertion. He also reported to have loose stool for the last 2 to 3 days. He denies of fever, chills, cough, chest pain, abdominal pain, nausea, vomiting, blood in stool. In the emergency department, he was tested positive for RSV. There was also a concern of fluid overload and decompensated congestive heart failure. Therefore he was given a dose of Lasix 40 mg with good diuretic response. He was on supplemental oxygen 6 L nasal cannula. However throughout the day in the emergency department, he became progressively lethargic and encephalopathic. Blood gas showed severe respiratory acidosis with pH of 6.9, PCO2 197. He was given a dose of DuoNeb nebulizer. Because of his altered mentation, he was intubated for airway protection as well as respiratory failure for hypercapnic/hypoxic respiratory failure. Blood work showed lymphopenia. I was consulted for further management. Prior to intubation, he stated that he wished to be remain as full code. PAST MEDICAL HISTORY: History is of atrial fibrillation on Eliquis and rate control with metoprolol Hypertension GERD PAST SURGICAL HISTORY: Hiatal hernia SOCIAL HISTORY: Lives at home. Denies smoking, drinking, use of recreational drugs. FAMILY HISTORY: Mother and brother had coronary artery disease Home medication: Please see below. ALLERGIES: Please see below. REVIEW OF SYSTEMS: Unable to be obtained as patient is currently intubated and sedated. HOME MEDICATIONS: Please see below. PHYSICAL EXAMINATION: VITAL SIGNS: Please see below for vital signs GENERAL APPEARANCE: Obese. Comfortably sedated HEENT: No JVD or cervical adenopathy. CARDIOVASCULAR: Normal S1-S2 with no evidence of murmur. LUNGS: Coarse crackles bilaterally. ABDOMEN: Distended but soft with positive bowel sounds. MUSCULOSKELETAL: No joint swelling or effusion. EXTREMITIES: No evidence of pedal edema. NEUROLOGICAL: Sedated. PSYCHIATRIC: Unable to be assessed. LABORATORY DATA: See below. Imaging: CT scan of the chest show patchy groundglass opacity along with bibasilar consolidation with air bronchogram. MICROBIOLOGY: Please see below. ASSESSMENT: This is a 80-year-old gentleman with past medical history of hypertension, atrial fibrillation on Eliquis, and GERD who presented to the emergency department with a complaint of shortness of breath. He was found to have RSV bronchiolitis and pneumonia. #Hypoxic and hypercapnic respiratory failure -Secondary to RSV bronchiolitis and pneumonia -We will remain sedated and mechanical ventilator. High minute ventilation with high respiratory rate for respiratory acidosis. Current ventilator setting with respiratory rate 20, tidal volume 400, PEEP 5, FiO2 70%. #RSV bronchiolitis and pneumonia -DuoNeb every 4 hour standing. Methylprednisolone 40 mg every 12 hours. -Mainstay of treatment for RSV bronchiolitis and pneumonia is supportive care. May consider giving patient Ribavarin if he does not improve rapidly. #Hypoxic and hypercapnic encephalopathy -Likely due to CO2 narcosis. Will repeat ABG in 1 hour after being on the ventilator. #Hypomagnesemia -Repleted #History is of atrial fibrillation -We will continue with metoprolol and Eliquis. #History is of hypertension -will continue with home medications, Norvasc and lisinopril DVT prophylaxis: He is already on Eliquis GI prophylaxis: Protonix Diet: N.p.o. CODE STATUS: Full code Prognosis: Patient is critical. His sister who is his designated healthcare proxy and his brother was updated on patient's clinical status. Critical care time excluding procedure is 60 minutes. Vital Signs Vital Signs Date Time Temp Pulse Resp B/P (MAP) Pulse Ox O2 Delivery O2 Flow Rate FiO2 08/02/21 19:31 112 71/50 (57) 96 08/02/21 17:16 6.0 08/02/21 14:16 24 Nasal Cannula 08/02/21 11:11 98.1 Laboratory Data Labs 24H Laboratory Tests 2 08/02/21 07:21: Immature Granulocyte % (Auto) 0.2, Neutrophils (%) (Auto) 82.9H, Lymphocytes (%) (Auto) 5.3L, Monocytes (%) (Auto) 10.6H, Eosinophils (%) (Auto) 0.4, Basophils (%) (Auto) 0.6, Neutrophils # (Auto) 3.9, Lymphocytes # (Auto) 0.3L, Monocytes # (Auto) 0.5, Eosinophils # (Auto) 0.0, Basophils # (Auto) 0.0, Nucleated Red Blood Cells % (auto) 0.0, Prothrombin Time 17.0H, Prothromb Time International Ratio 1.34, D-Dimer, Quantitative 1096.78H, Anion Gap 4L, Glomerular Filtration Rate > 60.0, Calcium Level 8.4L, Total Bilirubin 0.7, Direct Bilirubin < 0.1, Aspartate Amino Transf (AST/SGOT) 66H, Alanine Aminotransferase (ALT/SGPT) 30, Alkaline Phosphatase 106, Total Creatine Kinase 252, Creatine Kinase MB 5.5H, Creatine Kinase MB Relative Index 2.18, Troponin I < 0.02, JQ-Rbr-H-Type Natriuretic Peptide 3127H, Total Protein 7.7, Albumin 3.5, Albumin/Globulin Ratio 0.8, Thyroid Stimulating Hormone (TSH) 0.915, Thyroxine (T4) 8.6 08/02/21 15:00: Procalcitonin <0.05 08/02/21 15:07: Anion Gap 4L, Glomerular Filtration Rate > 60.0, Calcium Level 9.1, Troponin I < 0.02, Phosphorus Level 4.0, Magnesium Level 1.7L 08/02/21 19:14: Blood Gas Bicarbonate Standard 21.3L, Arterial Blood pH 6.879*L, Arterial Blood Partial Pressure CO2 197.6*H, Arterial Blood Partial Pressure O2 50.2L, Arterial Blood Total CO2 42.1H, Arterial Blood HCO3 36.1H, Arterial Blood Base Excess - 2.9L, Arterial Blood Oxygen Saturation 65.4L CBC/BMP Laboratory Tests 08/02/21 07:21 08/02/21 15:07 Microbiology Microbiology 08/02/21 Respiratory Virus Panel (PCR) ([facility]) - Final, Complete Respiratory Syncytial Virus Home Medications Scheduled Amlodipine Besylate (Amlodipine Besylate) 5 Mg Tab, 5 MG PO DAILY Apixaban (Eliquis) 5 Mg Tablet, 5 MG PO BID Atorvastatin Calcium (Atorvastatin Calcium) 40 Mg Tablet, 40 MG PO DAILY Lisinopril (Lisinopril) 2.5 Mg Tab, 2.5 MG PO DAILY Metoprolol Succinate (Metoprolol Succinate) 25 Mg Tab.er.24h, 25 MG PO DAILY Pantoprazole Sodium (Pantoprazole Sodium) 40 Mg Tablet.dr, 40 MG PO DAILY Allergies Coded Allergies: No Known Allergies (Unverified , 03/09/15) A-FIB/CHADSVASC A-FIB History Current/History of A-Fib/PAF?: Yes Current PO Anticoag Therapy: Yes BO CLEMONS MD Aug 02, 2021 20:43
[2021-08-02] MEDS: methylPREDNISolone 40MG 1ML VIAL IV SCH ×2 (20:54→21:02)
[2021-08-02] MEDS ORDERED: APIXABAN 5 MG TAB (ELIQUIS) PO SCH (21:00)
[2021-08-02] MEDS ORDERED: NOREPINEPHRINE BITARTRATE 8 MG in D5W 492 ML IV SCH (21:25)
[2021-08-02 21:30] LABS: ABG BASE EXCESS 1.9 (-2.0-2.0); ABG HCO3 35.7 MEQ/L (22.0-26.0); ABG O2 SATURATION 47.2 % (95.0-99.0); ABG STANDARD HCO3 24.9 MEQ/L (22.0-26.0); ABG TOTAL CO2 39.3 MEQ/L (23.0-31.0)
[2021-08-02 21:34] LABS: ABG PARTIAL PRESSURE CO2 115.8 mmHg (35.0-45.0); ABG PARTIAL PRESSURE O2 30.9 mmHg (75.0-100.0); ABG pH (ARTERIAL) 7.107 UNITS (7.350-7.450)
[2021-08-02 22:23] LABS: ABG BASE EXCESS -0.1 (-2.0-2.0); ABG HCO3 30.1 MEQ/L (22.0-26.0); ABG O2 SATURATION 88.7 % (95.0-99.0); ABG STANDARD HCO3 24.2 MEQ/L (22.0-26.0); ABG TOTAL CO2 32.4 MEQ/L (23.0-31.0)
[2021-08-02 22:25] LABS: ABG PARTIAL PRESSURE CO2 76.6 mmHg (35.0-45.0); ABG pH (ARTERIAL) 7.212 UNITS (7.350-7.450)
--- NOTE | 2021-08-02 22:29 | REPVR ---
PROCEDURE INFORMATION: Exam: XR Chest Exam date and time: 08/02/2021 9:40 PM Age: 80 years old Clinical indication: Other: Acute desaturation TECHNIQUE: Imaging protocol: XR of the chest. Views: 1 view. COMPARISON: CR PORTABLE CHEST X-RAY 08/02/2021 7:38 PM FINDINGS: Tubes, catheters and devices: Endotracheal tube is 4 cm above the papa. Nasogastric tube extends into the stomach Lungs: Degree of inflation of the lungs is normal. No evidence of pulmonary edema. Multifocal bilateral lung airspace opacities with worsening appearance. No suspicious parenchymal lung mass. Pleural spaces: No pleural effusion or pneumothorax. Heart/Mediastinum: Heart and mediastinal contours are unremarkable. No mediastinal adenopathy or hilar mass. Bones/joints: Bony structures and extrathoracic soft tissues are unremarkable for age. IMPRESSION: Over the short interim, worsening appearance of bilateral airspace infiltrates suggesting multifocal pneumonia Electronically signed by: Rohan Vasquez On 08/02/2021 22:28:56 PM
--- NOTE | 2021-08-02 22:46 | ROOPDOC ---
[facility] Report Of Operation Report of Operation DATE OF PROCEDURE: 08/02/21 PROCEDURE PERFORMED: Right internal jugular central venous catheter insertion PREPROCEDURE DIAGNOSES: Septic shock POSTPROCEDURE DIAGNOSES: Septic shock SURGEON: Dr Andrea MD Consent: emergent ANESTHESIA: Local Lidocaine 1% without epi ESTIMATED BLOOD LOSS: Approximately 1 mL. COMPLICATIONS: none DESCRIPTION OF PROCEDURE: A time out was performed. My hands were washed immediately prior to the procedure. I wore a surgical cap, mask with protective eyewear, full gown and sterile gloves throughout the procedure. The patient was placed in Trendelenburg position. Right chest and neck region was prepped using chlorhexidine scrub and draped in sterile fashion using a full drape and sterile probe cover and sterile gel employed. The medial and lateral heads of the sternocleidomastoid muscle were identified as was the carotid pulse. The Internal Jugular vein was identified using the ultrasound. Anesthesia was achieved over the vein using 1% lidocaine. Using real-time out of plane guidance, the introducer needle was inserted into the Internal Jugular vein under direct ultrasound visualization. Venous blood was withdrawn. The syringe was removed and a guidewire was advanced into the introducer needle. The guidewire was visualized in the Internal Jugular Vein by ultrasound. A small incision was made at the skin surface with a scalpel and the introducer needle was exchanged for a dilator over the guidewire. After appropriate dilation was obtained, the dilator was exchanged over the wire for a triple lumen central venous catheter. The wire was removed and the catheter was sutured in place at 15 cm. A sterile sorbaview shield was placed over the catheter at the insertion site. The patient tolerated the procedure without any hemodynamic compromise. At time of procedure completion, all ports aspirated and flushed properly. Post-procedure chest x-ray showed catheter tip at distal SVC and there was no PTX. Estimated blood loss is 1cc. BO CLEMONS MD Aug 02, 2021 22:46
[2021-08-02] MEDS ORDERED: AMPICILLIN SOD/SULBACTAM SOD 1.5 GM in D5W MINI-BAG PLUS 50 ML IV SCH (23:00)
--- NOTE | 2021-08-02 23:13 | REPVR ---
PROCEDURE INFORMATION: Exam: XR Chest Exam date and time: 08/02/2021 10:52 PM Age: 80 years old Clinical indication: Device placement; Other: Central line placement TECHNIQUE: Imaging protocol: XR of the chest. Views: 1 view. COMPARISON: CR Chest, 1 view 08/02/2021 9:30 PM FINDINGS: Tubes, catheters and devices: Right IJ vascular catheter appropriately positioned Lungs: Degree of inflation of the lungs is normal. No evidence of pulmonary edema. Multifocal lung infiltrates. No suspicious parenchymal lung mass. Pleural spaces: No pleural effusion or pneumothorax. Heart/Mediastinum: Heart and mediastinal contours are unremarkable. No mediastinal adenopathy or hilar mass. Bones/joints: Bony structures and extrathoracic soft tissues are unremarkable for age. IMPRESSION: 1. Interval placement of right IJ catheter to the cavoatrial junction without complication. 2. Multifocal lung infiltrates, without interval progression Electronically signed by: Rohan Vasquez On 08/02/2021 23:13:20 PM
[2021-08-02 23:29] VITALS: BP 125/67
[2021-08-03] VITALS (100 sets, daily range): BP systolic 72–139; BP diastolic 42–78
[2021-08-03] MEDS ORDERED: NOREPINEPHRINE BITARTRATE 8 MG in D5W 492 ML IV SCH ×2
[2021-08-03] MEDS: IPRATROPIUM 0.5MG/ALBUTEROL 2.5MG INH SOL UD 3ML (DUONEB) NEB SCH ×7 (00:02→23:15)
[2021-08-03] MEDS: propofoL 1,000 MG in IV 1 EA IV SCH ×3 (00:22→23:31)
[2021-08-03] MEDS: NOREPINEPHRINE BITARTRATE 8 MG in D5W 492 ML IV SCH ×3 (00:45→18:07)
[2021-08-03] MEDS: AMPICILLIN SOD/SULBACTAM SOD 1.5 GM in D5W MINI-BAG PLUS 50 ML IV SCH ×5 (01:20→23:31)
[2021-08-03] MEDS: MIDAZOLAM INJ 2MG/2ML VIAL (J2250 PER 1MG) IV PRN ×10 (02:23→21:59)
[2021-08-03 05:42] LABS: HEMATOCRIT 42.4 % (42.0-52.0); HEMOGLOBIN 13.9 g/dl (13.5-17.5); MEAN CORPUSCULAR HEMOGLOBIN 30.8 pg (27.0-33.0); MEAN CORPUSCULAR HGB CONC 32.8 g/dl (32.0-36.5); MEAN CORPUSCULAR VOLUME 93.8 fl (80.0-96.0); PLATELET COUNT, AUTOMATED 185 10^3/uL (150-450); RED BLOOD COUNT 4.52 10^6/uL (4.30-6.10); WHITE BLOOD COUNT 4.1 10^3/uL (4.0-10.0)
[2021-08-03 06:24] LABS: ALBUMIN 2.8 GM/DL (3.2-5.2); BILIRUBIN,TOTAL 0.6 MG/DL (0.2-1.0); CALCIUM LEVEL 8.3 MG/DL (8.8-10.2); CREATININE FOR GFR 1.94 MG/DL (0.70-1.30); GLOMERULAR FILTRATION RATE 35.4 (>35); MAGNESIUM LEVEL 1.9 MG/DL (1.8-2.4); PHOSPHORUS LEVEL 1.8 MG/DL (2.5-4.9); POTASSIUM SERUM 2.4 MEQ/L (3.5-5.1); TOTAL PROTEIN 6.1 GM/DL (6.4-8.2)
[2021-08-03] MEDS ORDERED: POTASSIUM CHLORIDE 10% LIQ 20 MEQ/15 ML UDC NG ONE (06:25)
[2021-08-03] MEDS: KCL 20MEQ IN 100ML SWI (KRUN) 20 MEQ in IV 1 EA IV SCH ×4 (06:35→09:18)
[2021-08-03] MEDS: amLODIPine 5 MG TAB PO SCH (07:26)
[2021-08-03] MEDS: METOPROLOL SUCC *XL* 25MG TAB (TopROL *XL*) PO SCH (07:27)
[2021-08-03] MEDS: LISINOPRIL *2.5 MG* TAB PO SCH (07:27)
[2021-08-03] MEDS: PANTOPRAZOLE 40MG TAB (PROTONIX) PO SCH (08:55)
[2021-08-03] MEDS: APIXABAN 5 MG TAB (ELIQUIS) NG SCH ×2 (09:19→20:13)
[2021-08-03 09:57] LABS: ABG BASE EXCESS 0.4 (-2.0-2.0); ABG HCO3 27.9 MEQ/L (22.0-26.0); ABG O2 SATURATION 98.7 % (95.0-99.0); ABG STANDARD HCO3 24.8 MEQ/L (22.0-26.0); ABG TOTAL CO2 29.6 MEQ/L (23.0-31.0); ABG pH (ARTERIAL) 7.307 UNITS (7.350-7.450)
[2021-08-03] MEDS: PANTOPRAZOLE 40MG VIAL (C9113 PER 1) IV SCH (10:18)
[2021-08-03] MEDS: CHLORHEXIDINE GLUCONATE 0.12 % 15ML UDC (PERIDEX ORAL RINSE) MT SCH ×2 (10:18→20:13)
[2021-08-03] MEDS: fentaNYL 100 MCG/2 ML INJECTION (J3010) IV PRN ×2 (10:31→23:33)
--- NOTE | 2021-08-03 12:46 | IPNPDOC ---
Subjective Date Seen The patient was seen on 08/03/21. Subjective Chief Complaint/HPI Patient remains intubated and sedated. However coming off sedation, he gets agitated and tries to self extubate. General: Reports: ROS Unobtainable Objective Physical Examination General Exam: Positive: No Acute Distress, Other (Comfortably sedated) Eye Exam: Negative: Sclera icteric ENT Exam: Negative: Atraumatic Neck Exam: Positive: Supple; Negative: JVD, Lymphadenopathy Chest Exam: Positive: Rales, Rhonchi (Bilateral) Heart Exam: Positive: Tachycardic, Irregular Rhythm; Negative: Murmurs Abdomen Exam: Positive: Normal bowel sounds, Soft; Negative: Tenderness Extremity Exam: Negative: Clubbing, Cyanosis, Edema Neuro Exam: Positive: Other (Nonfocal) Psych Exam: Positive: Other (Unable to be assessed) Assessment /Plan Assessment This is a 80-year-old gentleman with past medical history of hypertension, atrial fibrillation on Eliquis, and GERD who presented to the emergency department with a complaint of shortness of breath. He was found to have RSV bronchiolitis and pneumonia. Plan/VTE VTE Prophylaxis Ordered?: Yes Plan #Hypoxic and hypercapnic respiratory failure -Secondary to RSV bronchiolitis and pneumonia -We will remain sedated and mechanical ventilator. High minute ventilation with high respiratory rate for respiratory acidosis. Current ventilator setting with respiratory rate 20, tidal volume 400, PEEP 12, FiO2 100%. Decompensated respiratory acidosis is slowly improving. #RSV bronchiolitis and pneumonia -DuoNeb every 4 hour standing. Methylprednisolone 40 mg every 12 hours. -Mainstay of treatment for RSV bronchiolitis and pneumonia is supportive care. May consider giving patient Ribavarin if he does not improve rapidly. #Septic shock secondary to RSV bronchiolitis and pneumonia with possible superimposed bacterial infection -We will send blood culture and sputum culture. -There is evidence of aspiration pneumonia as stomach and food content was suctioned out of his endotracheal tube. -We will empirically cover him with Unasyn. -Norepinephrine and vasopressin for vasopressor support. Target mean arterial pressure greater than 65. #Hypoxic and hypercapnic encephalopathy -Likely due to CO2 narcosis. Mentation appears to be suboptimal but he is agitated coming off sedation. Daily sedation holiday. #Rapid A. fib with RVR -Likely due to septic induced and due to norepinephrine. Will add vasopressin to norepinephrine with the hope of avoiding to administer digoxin. -Continue with Eliquis for reduction of cardioembolic stroke. #KATHRYN -Likely due to ischemic ATN given that patient is requiring vasopressor support and was transiently hypotensive last night. -We will continue to monitor urine output. Hopefully he does not go on CRRT. Check lactic acid. #Hypomagnesemia and hypokalemia -Repleted. This is due to rapid correction of respiratory acidosis. #History is of atrial fibrillation -We will continue with Eliquis. Lopressor being held in the setting of septic shock. -Echocardiogram has been ordered. #History is of hypertension -We will hold off antihypertensive medication in the setting of septic shock. DVT prophylaxis: He is already on Eliquis GI prophylaxis: Protonix Diet: N.p.o. we will start tube feeding tomorrow. CODE STATUS: Full code Prognosis: Patient is critical. His sister who is his designated healthcare proxy and his brother was updated on patient's clinical status. Critical care time excluding procedure is 40 minutes. Disposition Continue ICU care. [facility] Vital Signs Date Time Temp Pulse Resp B/P (MAP) Pulse Ox O2 Delivery O2 Flow Rate FiO2 08/03/21 10:31 20 08/03/21 09:30 121 93/53 (66) 97 Ventilator 100 08/03/21 08:00 99.6 08/02/21 17:16 6.0 I&O- Last 24 Hours up to 6 AM 08/03/21 06:00 Intake Total 1002.5 ml Output Total 2565 ml Balance -1562.5 ml Laboratory Data 24H LABS Laboratory Tests 2 08/02/21 15:00: Procalcitonin <0.05 08/02/21 15:07: Anion Gap 4L, Glomerular Filtration Rate > 60.0, Calcium Level 9.1, Phosphorus Level 4.0, Magnesium Level 1.7L, Troponin I < 0.02 08/02/21 19:14: Blood Gas Bicarbonate Standard 21.3L, Arterial Blood pH 6.879*L, Arterial Blood Partial Pressure CO2 197.6*H, Arterial Blood Partial Pressure O2 50.2L, Arterial Blood Total CO2 42.1H, Arterial Blood HCO3 36.1H, Arterial Blood Base Excess - 2.9L, Arterial Blood Oxygen Saturation 65.4L 08/02/21 21:15: Blood Gas Bicarbonate Standard 24.9, Arterial Blood pH 7.107*L, Arterial Blood Partial Pressure CO2 115.8*H, Arterial Blood Partial Pressure O2 30.9*L, Arterial Blood Total CO2 39.3H, Arterial Blood HCO3 35.7H, Arterial Blood Base Excess 1.9, Arterial Blood Oxygen Saturation 47.2L 08/02/21 22:18: Blood Gas Bicarbonate Standard 24.2, Arterial Blood pH 7.212*L, Arterial Blood Partial Pressure CO2 76.6*H, Arterial Blood Partial Pressure O2 63.0L, Arterial Blood Total CO2 32.4H, Arterial Blood HCO3 30.1H, Arterial Blood Base Excess - 0.1, Arterial Blood Oxygen Saturation 88.7L 08/03/21 01:19: Troponin I 0.05# 08/03/21 05:24: Nucleated Red Blood Cells % (auto) 0.0, Anion Gap 10, Glomerular Filtration Rate 35.4, Calcium Level 8.3L, Phosphorus Level 1.8#L, Magnesium Level 1.9, Total Bilirubin 0.6, Aspartate Amino Transf (AST/SGOT) 32, Alanine Aminotransferase (ALT/SGPT) 25, Alkaline Phosphatase 76, Total Protein 6.1#L, Albumin 2.8L, Albumin/Globulin Ratio 0.8 08/03/21 09:47: Blood Gas Bicarbonate Standard 24.8, Arterial Blood pH 7.307L, Arterial Blood Partial Pressure CO2 57.0H, Arterial Blood Partial Pressure O2 144.0H, Arterial Blood Total CO2 29.6, Arterial Blood HCO3 27.9H, Arterial Blood Base Excess 0.4, Arterial Blood Oxygen Saturation 98.7 CBC/BMP Laboratory Tests 08/02/21 15:07 08/03/21 05:24 Microbiology Microbiology 08/02/21 Gram Stain - Final, Resulted 08/02/21 Sputum Culture, Resulted Pending 08/02/21 Respiratory Virus Panel (PCR) (DAMARI) - Final, Complete Respiratory Syncytial Virus BO CLEMONS MD Aug 03, 2021 12:46
[2021-08-03] MEDS: VASOPRESSIN INJ 20 UNITS in NS 499 ML IV SCH ×2 (14:08→22:21)
--- NOTE | 2021-08-03 15:03 | ECHO ---
ECHOCARDIOGRAM DATE OF PROCEDURE: 08/03/2021 Age: 80 Gender: Male Height: 72 inches Weight: 192 pounds Body surface area: 2.09 m2 Inpatient. Intensive care unit (ICU), room 3218. REFERRING PHYSICIAN: Dr. Abraham Livingston INDICATION: Congestive heart failure (CHF). MEASUREMENTS: 2D Measurements: RV - 4.6 cm LV - 3.6 cm Septum 1.2 cm Posterior wall 1.2 cm Aortic root 3.7 cm Ascending aorta 3.8 cm LA - 4.6 cm LVEF 55%-60% Doppler Measurements: AV - 1.56 m/s LVOT - 0.84 m/s MV-E 80 Early mitral declaration time 173 msec E prime medial 9.4 E prime lateral 11.4 Average E/E prime ratio 7.7/PCWP 11.4 mmHg PV - 0.7 m/s Pulmonary artery acceleration time 79 msec RVSP 46 mmHg IVC - Could not be visualized; estimated CVP 10 mmHg by standard convention. COMMENT: Underlying atrial fibrillation with somewhat rapid ventricular response. Technically difficult study with the patient currently intubated on a mechanical ventilator. M-mode and 2-dimensional echocardiography was performed with pulse, continuous wave, color flow, and tissue Doppler studies. Borderline concentric left ventricular hypertrophy with septal wall motion abnormality believed to be due to right ventricular pressure overload. Preserved global left ventricular systolic function. Moderate dilated left atrium with current estimated mean left atrial pressure within normal limits. At least mildly dilated right heart chambers with adequate right ventricular free wall motion and Doppler evidence of at least moderate pulmonary hypertension and suspected severe. His IVC could not be visualized to more accurately estimate central venous pressure. Normal aortic root size with slightly dilated ascending aorta. Mild aortic valvular sclerosis without stenosis and only trace insufficiency. Mild mitral annular thickening without inflow tract obstruction and only very mild mitral insufficiency. Normal-appearing tricuspid valve with at least mild to moderate insufficiency. Could not visualize any intracardiac mass or pericardial effusion.
[2021-08-03 18:12] LABS: CALCIUM LEVEL 7.9 MG/DL (8.8-10.2); CREATININE FOR GFR 1.83 MG/DL (0.70-1.30); GLOMERULAR FILTRATION RATE 37.9 (>35); MAGNESIUM LEVEL 1.9 MG/DL (1.8-2.4); POTASSIUM SERUM 3.7 MEQ/L (3.5-5.1)
[2021-08-03] MEDS: methylPREDNISolone 40MG 1ML VIAL IV SCH (20:13)
[2021-08-04] VITALS (86 sets, daily range): BP systolic 53–175; BP diastolic 38–84
[2021-08-04] MEDS: MIDAZOLAM INJ 2MG/2ML VIAL (J2250 PER 1MG) IV PRN ×4 (01:54→21:00)
[2021-08-04] MEDS: fentaNYL 100 MCG/2 ML INJECTION (J3010) IV PRN (01:54)
[2021-08-04] MEDS: IPRATROPIUM 0.5MG/ALBUTEROL 2.5MG INH SOL UD 3ML (DUONEB) NEB SCH ×6 (03:09→23:30)
[2021-08-04] MEDS: AMPICILLIN SOD/SULBACTAM SOD 1.5 GM in D5W MINI-BAG PLUS 50 ML IV SCH ×4 (05:20→22:27)
[2021-08-04 05:41] LABS: HEMATOCRIT 37.4 % (42.0-52.0); HEMOGLOBIN 12.4 g/dl (13.5-17.5); MEAN CORPUSCULAR HEMOGLOBIN 31.2 pg (27.0-33.0); MEAN CORPUSCULAR HGB CONC 33.2 g/dl (32.0-36.5); PLATELET COUNT, AUTOMATED 147 10^3/uL (150-450); RED BLOOD COUNT 3.98 10^6/uL (4.30-6.10); WHITE BLOOD COUNT 12.9 10^3/uL (4.0-10.0)
[2021-08-04 06:00] LABS: ALBUMIN 2.3 GM/DL (3.2-5.2); BILIRUBIN,TOTAL 0.7 MG/DL (0.2-1.0); CALCIUM LEVEL 7.8 MG/DL (8.8-10.2); CREATININE FOR GFR 1.55 MG/DL (0.70-1.30); GLOMERULAR FILTRATION RATE 45.9 (>35); POTASSIUM SERUM 3.5 MEQ/L (3.5-5.1); TOTAL PROTEIN 6.2 GM/DL (6.4-8.2)
[2021-08-04] MEDS: VASOPRESSIN INJ 20 UNITS in NS 499 ML IV SCH ×3 (06:13→22:20)
[2021-08-04 07:05] LABS: ATYPICAL LYMPH 1 % (0-5); LYMPHOCYTES 2 % (16-44); METAMYELOCYTES 14 % (0-0); MONOCYTES 1 % (0-5); MYELOCYTES 2 % (0-0); NEUTROPHILS 40 % (28-66); PLATELET CLUMPS MODERATE AMT; PLATELET ESTIMATE NORMAL (NORMAL)
[2021-08-04 07:07] LABS: CRENATED RBC 1+; SCHISTOCYTES 2+
[2021-08-04] MEDS: NOREPINEPHRINE BITARTRATE 8 MG in D5W 492 ML IV SCH ×4 (07:40→19:48)
[2021-08-04 08:51] LABS: VENOUS BASE EXCESS 0.5 (-2.0-2.0); VENOUS HCO3 27.4 MEQ/L (23.0-27.0); VENOUS PARTIAL PRESSURE O2 143.9 mmHg (30.0-50.0); VENOUS PH 7.324 UNITS (7.330-7.430); VENOUS TOTAL CO2 29.1 MEQ/L (24.0-28.0)
[2021-08-04] MEDS: APIXABAN 5 MG TAB (ELIQUIS) NG SCH ×2 (09:05→19:46)
[2021-08-04] MEDS: PANTOPRAZOLE 40MG VIAL (C9113 PER 1) IV SCH (09:05)
[2021-08-04] MEDS: methylPREDNISolone 40MG 1ML VIAL IV SCH ×2 (09:05→19:46)
[2021-08-04] MEDS: SENOKOT S TAB NG SCH (09:05)
[2021-08-04] MEDS: CHLORHEXIDINE GLUCONATE 0.12 % 15ML UDC (PERIDEX ORAL RINSE) MT SCH ×2 (09:06→19:46)
[2021-08-04] MEDS: dexmedeTOMidine 200 MCG in IV 1 EA IV SCH ×3 (09:06→22:24)
--- NOTE | 2021-08-04 10:51 | IPNPDOC ---
Subjective Date Seen The patient was seen on 08/04/21. Subjective Chief Complaint/HPI He remains intubated. He gets extremely agitated coming off sedation. He moves all 4 extremities. General: Reports: ROS Unobtainable Objective Physical Examination General Exam: Positive: No Acute Distress, Other (Comfortably sedated) Eye Exam: Negative: Sclera icteric ENT Exam: Negative: Atraumatic Neck Exam: Positive: Supple; Negative: JVD, Lymphadenopathy Chest Exam: Positive: Rales, Rhonchi (Bilateral) Heart Exam: Positive: Tachycardic, Irregular Rhythm; Negative: Murmurs Abdomen Exam: Positive: BS Hypoactive, Soft, Other (Slightly distended); Negative: Tenderness Extremity Exam: Negative: Clubbing, Cyanosis, Edema Skin Exam: Negative: Rash, Lesion Neuro Exam: Positive: Other (Nonfocal) Psych Exam: Positive: Other (Unable to be assessed) Assessment /Plan Assessment This is a 80-year-old gentleman with past medical history of hypertension, atrial fibrillation on Eliquis, and GERD who presented to the emergency department with a complaint of shortness of breath. He was found to have RSV bronchiolitis and pneumonia. Plan/VTE VTE Prophylaxis Ordered?: Yes Plan #Hypoxic and hypercapnic respiratory failure -Secondary to RSV bronchiolitis and pneumonia -We will remain sedated and mechanical ventilator. High minute ventilation with high respiratory rate for respiratory acidosis. Current ventilator setting with respiratory rate 20, tidal volume 400, PEEP 12, FiO2 100%. Decompensated respiratory acidosis is slowly improving. Will obtain venous blood gas today. #RSV bronchiolitis and pneumonia -DuoNeb every 4 hour standing. Methylprednisolone 40 mg every 12 hours. -Mainstay of treatment for RSV bronchiolitis and pneumonia is supportive care. We will further hold off administering ribavirin. #Septic shock secondary to RSV bronchiolitis and pneumonia with possible superimposed bacterial infection -Sputum and blood culture pending. -There is evidence of aspiration pneumonia as stomach and food content was suctioned out of his endotracheal tube. -We will continue to cover empirically with Unasyn for aspiration pneumonia. -Norepinephrine and vasopressin for vasopressor support. Target mean arterial pressure greater than 65. Hemodynamics are improving. #Hypoxic and hypercapnic encephalopathy -Likely due to CO2 narcosis. Mentation appears to be suboptimal but he is agitated coming off sedation. Daily sedation holiday. #Rapid A. fib with RVR -Likely due to septic induced and due to norepinephrine. He is currently on vasopressin as well. -Continue with Eliquis for reduction of cardioembolic stroke. #KATHRYN -improving -Likely due to ischemic ATN given that patient is requiring vasopressor support and was transiently hypotensive last night. -We will continue to monitor urine output. #Hypomagnesemia and hypokalemia -Repleted. This is due to rapid correction of respiratory acidosis. #History is of atrial fibrillation -We will continue with Eliquis. Lopressor being held in the setting of septic shock. -Echocardiogram has been done and pending. #History is of hypertension -We will hold off antihypertensive medication in the setting of septic shock. DVT prophylaxis: He is already on Eliquis GI prophylaxis: Protonix Diet: We will start him on tube feeding today. CODE STATUS: Full code Prognosis: Patient is critical. His sister who is his designated healthcare proxy was updated on patient clinical status. Critical care time excluding procedure is 40 minutes. Disposition Continue ICU care. VS, I&O, 24H, [facility] Vital Signs/I&O Vital Signs Date Time Temp Pulse Resp B/P (MAP) Pulse Ox O2 Delivery O2 Flow Rate FiO2 08/04/21 08:15 136 98/64 (75) 97 Ventilator 60 08/04/21 08:05 96.6 21 08/02/21 17:16 6.0 I&O- Last 24 Hours up to 6 AM 08/04/21 06:00 Intake Total 2559.7 ml Output Total 1060 ml Balance 1499.7 ml Laboratory Data 24H LABS Laboratory Tests 2 08/03/21 13:09: Lactic Acid Level 3.7*H 08/03/21 17:23: Lactic Acid Level 2.6*H, Anion Gap 6L, Glomerular Filtration Rate 37.9, Calcium Level 7.9L, Magnesium Level 1.9 08/03/21 21:47: Lactic Acid Followup at 4 Hours 2.6*H 08/04/21 05:20: Anion Gap 7L, Glomerular Filtration Rate 45.9, Calcium Level 7.8L, Immature Granulocyte % (Auto) , Neutrophils (%) (Auto) , Nucleated Red Blood Cells % (auto) 0.0, Neutrophils 40, Band Neutrophils 40H, Lymphocytes (Manual) 2L, Mo nocytes (Manual) 1, Metamyelocytes 14H, Myelocytes 2H, Atypical Lymphocytes 1, Schistocytes 2+, Crenated Cell 1+, Radha Cells , Acanthocytes 1+, Platelet Estimate NORMAL, Clumped Platelets MODERATE AMT, Total Bilirubin 0.7, Aspartate Amino Transf (AST/SGOT) 30, Alanine Aminotransferase (ALT/SGPT) 20, Alkaline Phosphatase 51, Total Protein 6.2L, Albumin 2.3L, Albumin/Globulin Ratio 0.6 08/04/21 08:35: Blood Gas Bicarbonate Standard 25.0, Venous Blood pH 7.324L, Venous Blood P artial Pressure CO2 54.0H, Venous Blood Partial Pressure O2 143.9H, Venous Blood Total Carbon Dioxide 29.1H, Venous Blood HCO3 27.4H, Venous Blood Oxygen Saturation 99.0H, Venous Blood Base Excess 0.5 CBC/BMP Laboratory Tests 08/03/21 17:23 08/04/21 05:20 Microbiology Microbiology 08/03/21 Blood Culture, Received Pending 08/03/21 Blood Culture, Received Pending 08/02/21 Gram Stain - Final, Resulted 08/02/21 Sputum Culture, Resulted Pending 08/02/21 Respiratory Virus Panel (PCR) (DAMARI) - Final, Complete Respiratory Syncytial Virus BO CLEMONS MD Aug 04, 2021 10:51
[2021-08-04] MEDS: propofoL 1,000 MG in IV 1 EA IV SCH ×2 (11:24→17:13)
[2021-08-04] MEDS: K-PHOS NEUTRAL 250MG TABLET (SOD.PHOSPHATE/POT.PHOSPHATE) PO SCH ×3 (11:49→19:46)
[2021-08-05] VITALS (56 sets, daily range): BP systolic 79–123; BP diastolic 50–72
[2021-08-05] MEDS: IPRATROPIUM 0.5MG/ALBUTEROL 2.5MG INH SOL UD 3ML (DUONEB) NEB SCH ×6 (03:15→23:41)
[2021-08-05] MEDS: MIDAZOLAM INJ 2MG/2ML VIAL (J2250 PER 1MG) IV PRN ×5 (03:45→21:56)
[2021-08-05] MEDS: propofoL 1,000 MG in IV 1 EA IV SCH ×3 (03:55→23:06)
[2021-08-05] MEDS: AMPICILLIN SOD/SULBACTAM SOD 1.5 GM in D5W MINI-BAG PLUS 50 ML IV SCH (04:00)
[2021-08-05 04:52] LABS: HEMATOCRIT 34.9 % (42.0-52.0); HEMOGLOBIN 11.6 g/dl (13.5-17.5); MEAN CORPUSCULAR HEMOGLOBIN 30.6 pg (27.0-33.0); MEAN CORPUSCULAR HGB CONC 33.2 g/dl (32.0-36.5); MEAN CORPUSCULAR VOLUME 92.1 fl (80.0-96.0); PLATELET COUNT, AUTOMATED 143 10^3/uL (150-450); RED BLOOD COUNT 3.79 10^6/uL (4.30-6.10)
[2021-08-05 05:16] LABS: ATYPICAL LYMPH 2 % (0-5); LYMPHOCYTES 1 % (16-44); METAMYELOCYTES 1 % (0-0); MONOCYTES 3 % (0-5); NEUTROPHILS 87 % (28-66); PLATELET ESTIMATE NORMAL (NORMAL); TOXIC VACUOLATION 1+
[2021-08-05 05:18] LABS: CRENATED RBC 1+
[2021-08-05 05:35] LABS: ALBUMIN 2.1 GM/DL (3.2-5.2); ALT/SGPT 20 U/L (12-78); BILIRUBIN,TOTAL 0.7 MG/DL (0.2-1.0); BLOOD UREA NITROGEN 41 MG/DL (7-18); CALCIUM LEVEL 8.9 MG/DL (8.8-10.2); CARBON DIOXIDE LEVEL 33 MEQ/L (21-32); CHLORIDE LEVEL 99 MEQ/L (98-107); CREATININE FOR GFR 1.07 MG/DL (0.70-1.30); GLOMERULAR FILTRATION RATE > 60.0 (>35); GLUCOSE, FASTING 128 MG/DL (70-100); POTASSIUM SERUM 2.8 MEQ/L (3.5-5.1); SODIUM LEVEL 137 MEQ/L (136-145); TOTAL PROTEIN 6.1 GM/DL (6.4-8.2)
[2021-08-05] MEDS ORDERED: POTASSIUM CHLORIDE 10% LIQ 20 MEQ/15 ML UDC NG ONE (05:50)
[2021-08-05] MEDS ORDERED: MAG SULF 1GM/100ML (MAG RUN) 1 GM in IV 1 EA IV ONE (05:50)
[2021-08-05 06:03] LABS: MAGNESIUM LEVEL 2.3 MG/DL (1.8-2.4)
[2021-08-05] MEDS: KCL 20MEQ IN 100ML SWI (KRUN) 20 MEQ in IV 1 EA IV SCH ×4 (07:02→08:31)
[2021-08-05] MEDS: APIXABAN 5 MG TAB (ELIQUIS) NG SCH ×2 (08:00→21:00)
[2021-08-05] MEDS: methylPREDNISolone 40MG 1ML VIAL IV SCH ×2 (08:00→20:00)
[2021-08-05] MEDS: SENOKOT S TAB NG SCH (08:00)
[2021-08-05] MEDS: CHLORHEXIDINE GLUCONATE 0.12 % 15ML UDC (PERIDEX ORAL RINSE) MT SCH ×2 (08:00→21:00)
[2021-08-05] MEDS: PANTOPRAZOLE 40MG VIAL (C9113 PER 1) IV SCH (08:00)
[2021-08-05] MEDS ORDERED: cefTRIAXone SOD 2 GM VIAL (J0696 PER 250MG) IM SCH (08:35)
[2021-08-05] MEDS ORDERED: MOM 30ML SUSPENSION UDC NG ONE (10:00)
[2021-08-05] MEDS: cefTRIAXone SOD 2 GM in D5W MINI-BAG PLUS 50 ML IV SCH (11:01)
[2021-08-05] MEDS: fentaNYL 100 MCG/2 ML INJECTION (J3010) IV PRN (11:34)
--- NOTE | 2021-08-05 14:15 | IPNPDOC ---
Subjective Date Seen The patient was seen on 08/05/21. Subjective Chief Complaint/HPI Patient remains delirious coming off sedation. He is trying to take off the mittens. He is nonpurposeful. Nonfocal. General: Reports: ROS Unobtainable Objective Physical Examination General Exam: Positive: No Acute Distress, Other (Comfortably sedated) Eye Exam: Negative: Sclera icteric ENT Exam: Negative: Atraumatic Neck Exam: Positive: Supple; Negative: JVD, Lymphadenopathy Chest Exam: Positive: Rales, Rhonchi (Bilateral) Heart Exam: Positive: Rate Normal, Irregular Rhythm; Negative: Murmurs Abdomen Exam: Positive: BS Hypoactive, Soft, Other (Slightly distended); Negative: Tenderness Extremity Exam: Negative: Clubbing, Cyanosis, Edema Skin Exam: Negative: Rash, Lesion Neuro Exam: Positive: Other (Nonfocal) Psych Exam: Positive: Anxiety (Agitated coming off sedation) Assessment /Plan Assessment This is a 80-year-old gentleman with past medical history of hypertension, atrial fibrillation on Eliquis, and GERD who presented to the emergency department with a complaint of shortness of breath. He was found to have RSV bronchiolitis and pneumonia. He was intubated for airway protection due to alte red mental status. Plan/VTE VTE Prophylaxis Ordered?: Yes Plan #Hypoxic and hypercapnic respiratory failure -Secondary to RSV bronchiolitis and aspiration E. coli pneumonia -We will remain sedated and mechanical ventilator. Current ventilator setting with respiratory rate 20, tidal volume 400, PEEP 12, FiO2 100%. Decompensated respiratory acidosis is slowly improving. Minute ventilation seems to be appropriate. We will decrease his PEEP down to 10. FiO2 at 50% at this point. He is currently not a candidate for extubation yet. #ICU delirium -Although patient nonfocal, however, he does not follow purposeful command. I will continue to perform daily sedation holiday with reorientation. #RSV bronchiolitis and E. coli aspiration pneumonia -DuoNeb every 4 hour standing. Methylprednisolone 40 mg every 12 hours. -Mainstay of treatment for RSV bronchiolitis and pneumonia is supportive care. We will further hold off administering ribavirin. -Unasyn switched to ceftriaxone for E. coli based on sensitivity. #Septic shock secondary to RSV bronchiolitis and E. coli aspiration pneumonia -Sputum culture positive for E. coli pansensitive. Blood cultures no growth to date. -There is evidence of aspiration pneumonia as stomach and food content was suctioned out of his endotracheal tube. -Unasyn was switched to ceftriaxone based on sensitivity -Hemodynamics are improving. Patient is currently on Levophed 1 mcg/min. Targeting MAP greater than 65. #Hypoxic and hypercapnic encephalopathy -Likely due to CO2 narcosis initially but now he is in ICU delirium. Daily sedation holiday. #Rapid A. fib with RVR -Likely due to septic induced and due to norepinephrine. It is currently rate controlled at this point. We may reintroduce home beta-connor once his hemodynamic continues to be stable. -Continue with Eliquis for reduction of cardioembolic stroke. #KATHRYN -improving -Likely due to ischemic ATN given that patient is requiring vasopressor support and was transiently hypotensive on admission. -We will continue to monitor urine output. #Hypomagnesemia and hypokalemia -Repleted. #History is of atrial fibrillation -We will continue with Eliquis. Lopressor being held in the setting of septic shock. -Echocardiogram with left ventricular hypertrophy and enlarged atriums. Ejection fraction appears to be very well-preserved. #History is of hypertension -We will hold off antihypertensive medication in the setting of septic shock which is currently improving. #Constipation -We will give him a dose of milk of magnesia. He is also on Senokot. DVT prophylaxis: He is already on Eliquis GI prophylaxis: Protonix Diet: He is tolerating tube feed. I am going to advance his tube feeding today. CODE STATUS: Full code Prognosis: Patient remains critical. Critical care time excluding procedure is 40 minutes. Disposition Continue ICU care. VS, I&O, 24H, Fishbone Vital Signs/I&O Vital Signs Date Time Temp Pulse Resp B/P (MAP) Pulse Ox O2 Delivery O2 Flow Rate FiO2 08/05/21 12:00 50 08/05/21 11:39 22 Ventilator 08/05/21 11:34 93 08/05/21 11:14 94 08/05/21 11:00 88/60 (69) 08/05/21 08:00 98.2 08/02/21 17:16 6.0 I&O- Last 24 Hours up to 6 AM 08/05/21 06:00 Intake Total 1027.10 ml Output Total 1365 ml Balance -337.90 ml Laboratory Data 24H LABS Laboratory Tests 2 08/05/21 04:34: Neutrophils (%) (Auto) , Nucleated Red Blood Cells % (auto) 0.0, Neutrophils 8 7H, Band Neutrophils 6, Lymphocytes (Manual) 1L, Monocytes (Manual) 3, Metamyelocytes 1H, Atypical Lymphocytes 2, Crenated Cell 1+, Acanthocytes 1+, Toxic Vacuolation 1+, Platelet Estimate NORMAL, Anion Gap 5L, Glomerular Filtration Rate > 60.0, Calcium Level 8.9, Magnesium Level 2.3, Total Bilirubin 0.7, Aspartate Amino Transf (AST/SGOT) 29, Alanine Aminotransferase (ALT/SGPT) 20, Alkaline Phosphatase 53, Total Protein 6.1L, Albumin 2.1L, Albumin/Globulin Ratio 0.5 CBC/BMP Laboratory Tests 08/05/21 04:34 Microbiology Microbiology 08/03/21 Blood Culture - Preliminary, Resulted No Growth after 48 hours. All Specime... 08/03/21 Blood Culture - Preliminary, Resulted No Growth after 48 hours. All Specime... 08/02/21 Gram Stain - Final, Complete 08/02/21 Sputum Culture - Final, Complete Escherichia Coli 08/02/21 Respiratory Virus Panel (PCR) (DAMARI) - Final, Complete Respiratory Syncytial Virus BO CLEMONS MD Aug 05, 2021 14:15
[2021-08-05] MEDS: dexmedeTOMidine 200 MCG in IV 1 EA IV SCH (14:29)
[2021-08-05 17:19] LABS: ALBUMIN 2.1 GM/DL (3.2-5.2); ALT/SGPT 22 U/L (12-78); BILIRUBIN,TOTAL 0.5 MG/DL (0.2-1.0); BLOOD UREA NITROGEN 45 MG/DL (7-18); CALCIUM LEVEL 9.1 MG/DL (8.8-10.2); CARBON DIOXIDE LEVEL 32 MEQ/L (21-32); CHLORIDE LEVEL 101 MEQ/L (98-107); CREATININE FOR GFR 1.05 MG/DL (0.70-1.30); GLOMERULAR FILTRATION RATE > 60.0 (>35); GLUCOSE, FASTING 128 MG/DL (70-100); MAGNESIUM LEVEL 2.8 MG/DL (1.8-2.4); POTASSIUM SERUM 3.4 MEQ/L (3.5-5.1); SODIUM LEVEL 136 MEQ/L (136-145); TOTAL PROTEIN 6.3 GM/DL (6.4-8.2)
[2021-08-05] MEDS: NOREPINEPHRINE BITARTRATE 8 MG in D5W 492 ML IV SCH ×2 (19:00→23:07)
[2021-08-06] VITALS (27 sets, daily range): BP systolic 92–170; BP diastolic 57–93
[2021-08-06] MEDS: MIDAZOLAM INJ 2MG/2ML VIAL (J2250 PER 1MG) IV PRN ×5 (00:58→21:50)
[2021-08-06] MEDS: IPRATROPIUM 0.5MG/ALBUTEROL 2.5MG INH SOL UD 3ML (DUONEB) NEB SCH ×5 (03:42→19:28)
[2021-08-06] MEDS: dexmedeTOMidine 200 MCG in IV 1 EA IV SCH ×5 (04:44→21:50)
[2021-08-06 05:04] LABS: BASO % 0.3 % (0.0-1.0); EOS % 0.2 % (0.0-3.0); HEMATOCRIT 34.7 % (42.0-52.0); HEMOGLOBIN 11.7 g/dl (13.5-17.5); LYMPH # 0.3 10^3/uL (1.5-5.0); LYMPH % 2.5 % (24.0-44.0); MEAN CORPUSCULAR HGB CONC 33.7 g/dl (32.0-36.5); MONO # 0.5 10^3/uL (0.0-0.8); MONO % 3.8 % (2.0-8.0); NEUTROPHILS # 11.9 10^3/uL (1.5-8.5); NEUTROPHILS % 92.8 % (36.0-66.0); PLATELET COUNT, AUTOMATED 148 10^3/uL (150-450); RED BLOOD COUNT 3.77 10^6/uL (4.30-6.10); WHITE BLOOD COUNT 12.8 10^3/uL (4.0-10.0)
[2021-08-06 05:28] LABS: BLOOD UREA NITROGEN 49 MG/DL (7-18); CARBON DIOXIDE LEVEL 34 MEQ/L (21-32); CHLORIDE LEVEL 101 MEQ/L (98-107); CREATININE FOR GFR 0.95 MG/DL (0.70-1.30); GLOMERULAR FILTRATION RATE > 60.0 (>35); GLUCOSE, FASTING 145 MG/DL (70-100); POTASSIUM SERUM 3.8 MEQ/L (3.5-5.1); SODIUM LEVEL 139 MEQ/L (136-145)
[2021-08-06 05:29] LABS: ALBUMIN 2.2 GM/DL (3.2-5.2); ALT/SGPT 27 U/L (12-78); BILIRUBIN,TOTAL 0.4 MG/DL (0.2-1.0); CALCIUM LEVEL 8.7 MG/DL (8.8-10.2); TOTAL PROTEIN 5.6 GM/DL (6.4-8.2)
[2021-08-06] MEDS: SENOKOT S TAB NG SCH (08:30)
[2021-08-06] MEDS: CHLORHEXIDINE GLUCONATE 0.12 % 15ML UDC (PERIDEX ORAL RINSE) MT SCH ×2 (08:31→20:14)
[2021-08-06] MEDS: methylPREDNISolone 40MG 1ML VIAL IV SCH ×2 (08:31→20:14)
[2021-08-06] MEDS: PANTOPRAZOLE 40MG VIAL (C9113 PER 1) IV SCH (08:31)
[2021-08-06] MEDS: APIXABAN 5 MG TAB (ELIQUIS) NG SCH ×2 (08:31→20:14)
[2021-08-06] MEDS: cefTRIAXone SOD 2 GM in D5W MINI-BAG PLUS 50 ML IV SCH (10:31)
[2021-08-06] MEDS: propofoL 1,000 MG in IV 1 EA IV SCH ×2 (10:31→21:49)
[2021-08-06] MEDS ORDERED: MAGNESIUM CITRATE 300 ML BTL PO ONE (12:40)
--- NOTE | 2021-08-06 12:50 | IPNPDOC ---
Subjective Date Seen The patient was seen on 08/06/21. Subjective Chief Complaint/HPI Coming off sedation, patient is very very agitated. He does move all 4 extremities. He does attempt to self extubate. He is nonpurposeful and does not follow any verbal commands. General: Reports: ROS Unobtainable Objective Physical Examination General Exam: Positive: No Acute Distress, Other (Comfortably sedated) Eye Exam: Negative: Sclera icteric ENT Exam: Negative: Atraumatic Neck Exam: Positive: Supple; Negative: JVD, Lymphadenopathy Chest Exam: Positive: Rales, Rhonchi (Bilateral) Heart Exam: Positive: Rate Normal, Irregular Rhythm; Negative: Murmurs Abdomen Exam: Positive: BS Hypoactive, Soft, Other (Slightly distended); Negative: Tenderness Extremity Exam: Negative: Clubbing, Cyanosis, Edema Skin Exam: Negative: Rash, Lesion Neuro Exam: Positive: Other (Nonfocal) Psych Exam: Positive: Anxiety (Agitated coming off sedation) Assessment /Plan Assessment This is a 80-year-old gentleman with past medical history of hypertension, atrial fibrillation on Eliquis, and GERD who presented to the emergency department with a complaint of shortness of breath. He was found to have RSV bronchiolitis and pneumonia. He was intubated for airway protection due to altered mental status. Plan/VTE VTE Prophylaxis Ordered?: Yes Plan #Hypoxic and hypercapnic respiratory failure -Secondary to RSV bronchiolitis and aspiration E. coli pneumonia -He will remain sedated and mechanical ventilator. Current ventilator setting with respiratory rate 20, tidal volume 400, PEEP 10, FiO2 45%. Decompensated respiratory acidosis is slowly improving. Minute ventilation seems to be appropriate. We will continue to wean down his PEEP to reasonable 5-7 before considering for extubation. #ICU delirium -Although patient nonfocal, however, he does not follow purposeful commands. I believe his delirium is likely multifactorial given respiratory failure, s edation, infection, constipation. I will continue to perform daily sedation holiday with reorientation. #RSV bronchiolitis and E. coli aspiration pneumonia -DuoNeb every 4 hour standing. Methylprednisolone 40 mg every 12 hours. -Mainstay of treatment for RSV bronchiolitis and pneumonia is supportive care. -Continue with ceftriaxone for total of 7 days of antibiotic. #Septic shock secondary to RSV bronchiolitis and E. coli aspiration pneumonia - resolved -Sputum culture positive for E. coli pansensitive. Blood cultures no growth to date. -There is evidence of aspiration pneumonia as stomach and food content was suctioned out of his endotracheal tube. -Unasyn was switched to ceftriaxone based on sensitivity and will continue with total of 7 days. -Hemodynamics are improving. Targeting MAP greater than 65. #Hypoxic and hypercapnic encephalopathy -Likely due to CO2 narcosis initially but now he is in ICU delirium. Daily sedation holiday. #Rapid A. fib with RVR -Likely due to septic induced and due to norepinephrine. It is currently rate controlled at this point. We may reintroduce home beta-connor once his hemodynamic continues to be stable. -Continue with Eliquis for reduction of cardioembolic stroke. #KATHRYN -resolved -Likely due to ischemic ATN given that patient is requiring vasopressor support and was transiently hypotensive on admission. -We will continue to monitor urine output. #History is of atrial fibrillation -We will continue with Eliquis. Lopressor being held in the setting of septic shock. -Echocardiogram with left ventricular hypertrophy and enlarged atriums. Ejection fraction appears to be very well-preserved. #History is of hypertension -We will hold off antihypertensive medication in the setting of septic shock which is currently improving. #Constipation -resolved -He did have a bowel movement after he received a dose of milk of magnesia. DVT prophylaxis: He is already on Eliquis GI prophylaxis: Protonix Diet: He is tolerating tube feed and tube feeding is at goal. CODE STATUS: Full code Prognosis: Patient remains critical. Critical care time excluding procedure is 40 minutes. Disposition Continue ICU care. VS, I&O, 24H, Fishbone Vital Signs/I&O Vital Signs Date Time Temp Pulse Resp B/P (MAP) Pulse Ox O2 Delivery O2 Flow Rate FiO2 08/06/21 10:00 91 116/73 (87) 96 08/06/21 09:30 45 08/06/21 08:20 98.4 18 Ventilator 08/02/21 17:16 6.0 I&O- Last 24 Hours up to 6 AM 08/06/21 06:00 Intake Total 1313.6 ml Output Total 1100 ml Balance 213.6 ml Laboratory Data 24H LABS Laboratory Tests 2 08/05/21 16:20: Anion Gap 3L, Glomerular Filtration Rate > 60.0, Calcium Level 9.1, Magnesium Level 2.8H, Total Bilirubin 0.5, Aspartate Amino Transf (AST/SGOT) 37, Alanine Aminotransferase (ALT/SGPT) 22, Alkaline Phosphatase 54, Total Protein 6.3L, Albumin 2.1L, Albumin/Globulin Ratio 0.5 08/06/21 04:48: Anion Gap 4L, Glomerular Filtration Rate > 60.0, Calcium Level 8.7L, Total Bilirubin 0.4, Aspartate Amino Transf (AST/SGOT) 37, Alanine Aminotransferase (ALT/SGPT) 27, Alkaline Phosphatase 56, Total Protein 5.6L, Albumin 2.2L, Albumin/Globulin Ratio 0.6, Immature Granulocyte % (Auto) 0.4, Neutrophils (%) (Auto) 92.8H, Lymphocytes (%) (Auto) 2.5L, Monocytes (%) (Auto) 3.8, Eosinophils (%) (Auto) 0.2, Basophils (%) (Auto) 0.3, Neutrophils # (Auto) 11.9H, Lymphocytes # (Auto) 0.3L, Monocytes # (Auto) 0.5, Eosinophils # (Auto) 0.0, Basophils # (Auto) 0.0, Nucleated Red Blood Cells % (auto) 0.0 CBC/BMP Laboratory Tests 08/05/21 16:20 08/06/21 04:48 Microbiology Microbiology 08/03/21 Blood Culture - Preliminary, Resulted No Growth after 48 hours. All Specime... 08/03/21 Blood Culture - Preliminary, Resulted No Growth after 48 hours. All Specime... 08/02/21 Gram Stain - Final, Complete 08/02/21 Sputum Culture - Final, Complete Escherichia Coli 08/02/21 Respiratory Virus Panel (PCR) (DAMARI) - Final, Complete Respiratory Syncytial Virus BO CLEMONS MD Aug 06, 2021 12:50
[2021-08-07] VITALS (11 sets, daily range): BP systolic 117–163; BP diastolic 70–85
[2021-08-07] MEDS: IPRATROPIUM 0.5MG/ALBUTEROL 2.5MG INH SOL UD 3ML (DUONEB) NEB SCH ×4 (00:11→15:15)
[2021-08-07] MEDS: MIDAZOLAM INJ 2MG/2ML VIAL (J2250 PER 1MG) IV PRN ×8 (01:34→23:42)
[2021-08-07] MEDS: dexmedeTOMidine 200 MCG in IV 1 EA IV SCH ×5 (02:15→21:07)
[2021-08-07 05:33] LABS: BASO % 0.3 % (0.0-1.0); HEMATOCRIT 37.5 % (42.0-52.0); HEMOGLOBIN 12.3 g/dl (13.5-17.5); LYMPH # 0.5 10^3/uL (1.5-5.0); LYMPH % 4.8 % (24.0-44.0); MEAN CORPUSCULAR HEMOGLOBIN 30.9 pg (27.0-33.0); MEAN CORPUSCULAR HGB CONC 32.8 g/dl (32.0-36.5); MEAN CORPUSCULAR VOLUME 94.2 fl (80.0-96.0); MONO # 0.6 10^3/uL (0.0-0.8); MONO % 6.2 % (2.0-8.0); NEUTROPHILS # 8.6 10^3/uL (1.5-8.5); NEUTROPHILS % 87.3 % (36.0-66.0); PLATELET COUNT, AUTOMATED 149 10^3/uL (150-450); RED BLOOD COUNT 3.98 10^6/uL (4.30-6.10); WHITE BLOOD COUNT 9.8 10^3/uL (4.0-10.0)
[2021-08-07 05:59] LABS: BLOOD UREA NITROGEN 54 MG/DL (7-18); CARBON DIOXIDE LEVEL 36 MEQ/L (21-32); CHLORIDE LEVEL 102 MEQ/L (98-107); CREATININE FOR GFR 0.98 MG/DL (0.70-1.30); GLOMERULAR FILTRATION RATE > 60.0 (>35); GLUCOSE, FASTING 201 MG/DL (70-100); POTASSIUM SERUM 4.7 MEQ/L (3.5-5.1); SODIUM LEVEL 141 MEQ/L (136-145)
[2021-08-07 06:00] LABS: ALBUMIN 2.3 GM/DL (3.2-5.2); ALT/SGPT 33 U/L (12-78); BILIRUBIN,TOTAL 0.5 MG/DL (0.2-1.0); CALCIUM LEVEL 8.6 MG/DL (8.8-10.2); TOTAL PROTEIN 5.9 GM/DL (6.4-8.2)
[2021-08-07] MEDS: propofoL 1,000 MG in IV 1 EA IV SCH ×3 (06:20→21:09)
[2021-08-07] MEDS: methylPREDNISolone 40MG 1ML VIAL IV SCH ×2 (08:00→20:47)
[2021-08-07] MEDS: SENOKOT S TAB NG SCH (08:01)
[2021-08-07] MEDS: CHLORHEXIDINE GLUCONATE 0.12 % 15ML UDC (PERIDEX ORAL RINSE) MT SCH ×2 (08:01→20:48)
[2021-08-07] MEDS: APIXABAN 5 MG TAB (ELIQUIS) NG SCH ×2 (08:02→20:48)
[2021-08-07] MEDS: fentaNYL 100 MCG/2 ML INJECTION (J3010) IV PRN (08:31)
[2021-08-07] MEDS: PANTOPRAZOLE 40MG VIAL (C9113 PER 1) IV SCH (09:43)
[2021-08-07] MEDS: cefTRIAXone SOD 2 GM in D5W MINI-BAG PLUS 50 ML IV SCH (09:44)
--- NOTE | 2021-08-07 13:43 | IPNPDOC ---
Subjective Date Seen The patient was seen on 08/07/21. Subjective Chief Complaint/HPI Patient remains intubated and sedated. However, he is extremely agitated when coming off sedation. He is nonpurposeful but moves all 4 extremities. General: Reports: ROS Unobtainable Objective Physical Examination General Exam: Positive: No Acute Distress, Other (Comfortably sedated) Eye Exam: Negative: Sclera icteric ENT Exam: Negative: Atraumatic Neck Exam: Positive: Supple; Negative: JVD, Lymphadenopathy Chest Exam: Positive: Clear to auscultation, Normal air movement, Rhonchi (Bilateral) Heart Exam: Positive: Rate Normal, Irregular Rhythm; Negative: Murmurs Abdomen Exam: Positive: BS Hypoactive, Soft, Other (Slightly distended); Negative: Tenderness Extremity Exam: Negative: Clubbing, Cyanosis, Edema Skin Exam: Negative: Rash, Lesion Neuro Exam: Positive: Other (Nonfocal) Psych Exam: Positive: Anxiety (Agitated coming off sedation) Assessment /Plan Assessment This is a 80-year-old gentleman with past medical history of hypertension, atrial fibrillation on Eliquis, and GERD who presented to the emergency department with a complaint of shortness of breath. He was found to have RSV bronchiolitis and pneumonia. He was intubated for airway protection due to altered mental status. Plan/VTE VTE Prophylaxis Ordered?: Yes Plan #Hypoxic and hypercapnic respiratory failure -Secondary to RSV bronchiolitis and aspiration E. coli pneumonia -He will remain sedated and mechanical ventilator. Current ventilator setting with respiratory rate 20, tidal volume 400, PEEP 8, FiO2 40%. Minute ventilation seems to be appropriate. I would drop the PEEP down to 5 today. -Main reason he remains on mechanical ventilator is poor mental status which we are performing reorientation. #ICU delirium -Although patient nonfocal, however, he does not follow purposeful commands. I believe his delirium is likely multifactorial given respiratory failure, sedation, infection, constipation. I will continue to perform daily sedation holiday with reorientation. #RSV bronchiolitis and E. coli aspiration pneumonia -DuoNeb every 8 hour standing. Methylprednisolone 40 mg every 12 hours. -Mainstay of treatment for RSV bronchiolitis and pneumonia is supportive care. -Continue with ceftriaxone for total of 7 days of antibiotic. #Septic shock secondary to RSV bronchiolitis and E. coli aspiration pneumonia - resolved -Sputum culture positive for E. coli pansensitive. Blood cultures no growth to date. -There is evidence of aspiration pneumonia as stomach and food content was suctioned out of his endotracheal tube. -Unasyn was switched to ceftriaxone based on sensitivity and will continue with total of 7 days. -Hemodynamics are stable. Targeting MAP greater than 65. #Hypoxic and hypercapnic encephalopathy -Likely due to CO2 narcosis initially but now he is in ICU delirium. Daily sedation holiday. He is non-focal. #Rapid A. fib with RVR -Likely due to septic induced and due to norepinephrine. It is currently rate controlled at this point. We may reintroduce home beta-connor once his hemodynamic continues to be stable. -Continue with Eliquis for reduction of cardioembolic stroke. #KATHRYN -resolved -Likely due to ischemic ATN given that patient is requiring vasopressor support and was transiently hypotensive on admission. -We will continue to monitor urine output. #History is of atrial fibrillation -We will continue with Eliquis. Lopressor being held as he is currently in rate control. -Echocardiogram with left ventricular hypertrophy and enlarged atriums. Ejection fraction appears to be very well-preserved. #History is of hypertension -We will hold off antihypertensive medication as his blood pressure currently is normal. #Constipation -resolved -He did have a bowel movement after he received a dose of milk of magnesia. DVT prophylaxis: He is already on Eliquis GI prophylaxis: Protonix Diet: He is tolerating tube feed and tube feeding is at goal. CODE STATUS: Full code Prognosis: Patient remains critical. Critical care time excluding procedure is 30 minutes. Disposition Continue care in the ICU. VS, I&O, 24H, Fishbone Vital Signs/I&O Vital Signs Date Time Temp Pulse Resp B/P (MAP) Pulse Ox O2 Delivery O2 Flow Rate FiO2 08/07/21 08:45 20 95 40 08/07/21 08:31 Ventilator 08/07/21 08:00 94 161/80 (107) 08/07/21 06:20 97.3 08/02/21 17:16 6.0 I&O- Last 24 Hours up to 6 AM 08/07/21 06:00 Intake Total 1402 ml Output Total 1330 ml Balance 72 ml Laboratory Data 24H LABS Laboratory Tests 2 08/07/21 05:12: Immature Granulocyte % (Auto) 1.4, Neutrophils (%) (Auto) 87.3H, Lymphocytes (%) (Auto) 4.8L, Monocytes (%) (Auto) 6.2, Eosinophils (%) (Auto) 0.0, Basophils (%) (Auto) 0.3, Neutrophils # (Auto) 8.6H, Lymphocytes # (Auto) 0.5L, Monocytes # (Auto) 0.6, Eosinophils # (Auto) 0.0, Basophils # (Auto) 0.0, Nucleated Red Blood Cells % (auto) 0.0, Anion Gap 3L, Glomerular Filtration Rate > 60.0, Calcium Level 8.6L, Total Bilirubin 0.5, Aspartate Amino Transf (AST/SGOT) 36, Alanine Aminotransferase (ALT/SGPT) 33, Alkaline Phosphatase 72, Total Protein 5.9L, Albumin 2.3L, Albumin/Globulin Ratio 0.6 CBC/BMP Laboratory Tests 08/07/21 05:12 Microbiology Microbiology 08/03/21 Blood Culture - Preliminary, Resulted No Growth after 72 hours. All specime... 08/03/21 Blood Culture - Preliminary, Resulted No Growth after 72 hours. All specime... 08/02/21 Gram Stain - Final, Complete 08/02/21 Sputum Culture - Final, Complete Escherichia Coli 08/02/21 Respiratory Virus Panel (PCR) (DAMARI) - Final, Complete Respiratory Syncytial Virus BO CLEMONS MD Aug 07, 2021 13:43
[2021-08-07] MEDS: NOREPINEPHRINE BITARTRATE 8 MG in D5W 492 ML IV SCH (23:00)
[2021-08-08] VITALS (18 sets, daily range): BP systolic 98–152; BP diastolic 60–86
[2021-08-08] MEDS: dexmedeTOMidine 200 MCG in IV 1 EA IV SCH ×8 (00:52→21:46)
[2021-08-08] MEDS: MIDAZOLAM INJ 2MG/2ML VIAL (J2250 PER 1MG) IV PRN ×3 (03:20→18:28)
[2021-08-08] MEDS: propofoL 1,000 MG in IV 1 EA IV SCH ×3 (04:21→21:46)
[2021-08-08 05:37] LABS: BASO % 0.2 % (0.0-1.0); HEMATOCRIT 38.6 % (42.0-52.0); HEMOGLOBIN 12.5 g/dl (13.5-17.5); LYMPH # 0.6 10^3/uL (1.5-5.0); LYMPH % 6.6 % (24.0-44.0); MEAN CORPUSCULAR HEMOGLOBIN 30.8 pg (27.0-33.0); MEAN CORPUSCULAR HGB CONC 32.4 g/dl (32.0-36.5); MEAN CORPUSCULAR VOLUME 95.1 fl (80.0-96.0); MONO # 0.8 10^3/uL (0.0-0.8); NEUTROPHILS # 7.1 10^3/uL (1.5-8.5); NEUTROPHILS % 81.4 % (36.0-66.0); PLATELET COUNT, AUTOMATED 166 10^3/uL (150-450); RED BLOOD COUNT 4.06 10^6/uL (4.30-6.10); WHITE BLOOD COUNT 8.7 10^3/uL (4.0-10.0)
[2021-08-08 05:59] LABS: BLOOD UREA NITROGEN 52 MG/DL (7-18); CALCIUM LEVEL 9.1 MG/DL (8.8-10.2); CARBON DIOXIDE LEVEL 35 MEQ/L (21-32); CHLORIDE LEVEL 102 MEQ/L (98-107); CREATININE FOR GFR 0.87 MG/DL (0.70-1.30); GLOMERULAR FILTRATION RATE > 60.0 (>35); GLUCOSE, FASTING 180 MG/DL (70-100); POTASSIUM SERUM 5.3 MEQ/L (3.5-5.1); SODIUM LEVEL 138 MEQ/L (136-145)
[2021-08-08] MEDS: IPRATROPIUM 0.5MG/ALBUTEROL 2.5MG INH SOL UD 3ML (DUONEB) NEB SCH ×2 (07:33→20:25)
[2021-08-08] MEDS: cefTRIAXone SOD 2 GM in D5W MINI-BAG PLUS 50 ML IV SCH (10:29)
[2021-08-08] MEDS: CHLORHEXIDINE GLUCONATE 0.12 % 15ML UDC (PERIDEX ORAL RINSE) MT SCH ×2 (10:29→21:48)
[2021-08-08] MEDS: PANTOPRAZOLE 40MG VIAL (C9113 PER 1) IV SCH (10:29)
[2021-08-08] MEDS: APIXABAN 5 MG TAB (ELIQUIS) NG SCH ×2 (10:30→21:48)
[2021-08-08] MEDS: SENOKOT S TAB NG SCH (10:30)
--- NOTE | 2021-08-08 13:02 | IPNPDOC ---
Subjective Date Seen The patient was seen on 08/08/21. Subjective Chief Complaint/HPI Patient intermittently follow commands. However, he gets severely agitated 1 coming off sedation and does not follow most of the commands. General: Reports: ROS Unobtainable Objective Physical Examination General Exam: Positive: No Acute Distress, Other (Comfortably sedated) Eye Exam: Negative: Sclera icteric ENT Exam: Negative: Atraumatic Neck Exam: Positive: Supple; Negative: JVD, Lymphadenopathy Chest Exam: Positive: Clear to auscultation, Normal air movement, Rhonchi (Bilateral) Heart Exam: Positive: Rate Normal, Irregular Rhythm; Negative: Murmurs Abdomen Exam: Positive: BS Hypoactive, Soft, Other (Slightly distended); Negative: Tenderness Extremity Exam: Negative: Clubbing, Cyanosis, Edema Skin Exam: Negative: Rash, Lesion Neuro Exam: Positive: Other (Nonfocal) Psych Exam: Positive: Anxiety (Agitated coming off sedation) Assessment /Plan Assessment This is a 80-year-old gentleman with past medical history of hypertension, atrial fibrillation on Eliquis, and GERD who presented to the emergency department with a complaint of shortness of breath. He was found to have RSV bronchiolitis and pneumonia. He was intubated for airway protection due to altered mental status. Plan/VTE VTE Prophylaxis Ordered?: Yes Plan #Hypoxic and hypercapnic respiratory failure -Secondary to RSV bronchiolitis and aspiration E. coli pneumonia -Current ventilator setting with respiratory rate 20, tidal volume 400, PEEP 5, FiO2 40%. Minute ventilation seems to be appropriate. -Main reason he remains on mechanical ventilator is poor mental status which we are performing reorientation and daily sedation holiday. #ICU delirium -Although patient nonfocal, however, he does not follow purposeful commands. I believe his delirium is likely multifactorial given respiratory failure, sedation, infection, constipation. I will continue to perform daily sedation holiday with reorientation. #RSV bronchiolitis and E. coli aspiration pneumonia -DuoNeb every 8 hours as needed. He finished a short course of methylprednisolone. -Mainstay of treatment for RSV bronchiolitis and pneumonia is supportive care. -Continue with ceftriaxone for total of 7 days for E. coli aspiration pneumonia. #Septic shock secondary to RSV bronchiolitis and E. coli aspiration pneumonia - resolved -Sputum culture positive for E. coli pansensitive. Blood cultures no growth to date. -There is evidence of aspiration pneumonia as stomach and food content was suctioned out of his endotracheal tube. -Unasyn was switched to ceftriaxone based on sensitivity and will continue with total of 7 days. -Hemodynamics are stable. Targeting MAP greater than 65. #Metabolic encephalopathy -Likely due to CO2 narcosis initially but now he is in ICU delirium. Daily sedation holiday. He is non-focal. Therefore I do not suspect CVA. #Rapid A. fib with RVR - Resolved -I have restarted him back on beta-connor for rate control. -Continue with Eliquis for reduction of cardioembolic stroke. #KATHRYN -resolved -Likely due to ischemic ATN given that patient is requiring vasopressor support and was transiently hypotensive on admission. -We will continue to monitor urine output. #History is of atrial fibrillation -We will continue with Eliquis. -Echocardiogram with left ventricular hypertrophy and enlarged atriums. Ejection fraction appears to be very well-preserved. #History is of hypertension -We will hold off antihypertensive medication as his blood pressure currently is normal. #Constipation -resolved -He did have a bowel movement after he received a dose of milk of magnesia. DVT prophylaxis: He is already on Eliquis GI prophylaxis: Protonix Diet: He is tolerating tube feed and tube feeding is at goal. CODE STATUS: Full code Prognosis: Patient remains critical. Critical care time excluding procedure is 30 minutes. Disposition Continue ICU care. VS, I&O, 24H, Juan Manuel Vital Signs/I&O Vital Signs Date Time Temp Pulse Resp B/P (MAP) Pulse Ox O2 Delivery O2 Flow Rate FiO2 08/08/21 11:16 109 30 97 40 08/08/21 08:00 97.9 125/70 (88) Ventilator 08/02/21 17:16 6.0 I&O- Last 24 Hours up to 6 AM 08/08/21 06:00 Intake Total 1690.5 ml Output Total 1430 ml Balance 260.5 ml Laboratory Data 24H LABS Laboratory Tests 2 08/08/21 05:23: Immature Granulocyte % (Auto) 2.8, Neutrophils (%) (Auto) 81.4H, Lymphocytes (%) (Auto) 6.6L, Monocytes (%) (Auto) 9.0H, Eosinophils (%) (Auto) 0.0, Basophils (%) (Auto) 0.2, Neutrophils # (Auto) 7.1, Lymphocytes # (Auto) 0.6L, Monocytes # (Auto) 0.8, Eosinophils # (Auto) 0.0, Basophils # (Auto) 0.0, Nucleated Red Blo od Cells % (auto) 0.2H, Anion Gap 1L, Glomerular Filtration Rate > 60.0, Calcium Level 9.1 CBC/BMP Laboratory Tests 08/08/21 05:23 Microbiology Microbiology 08/03/21 Blood Culture - Preliminary, Resulted No Growth after 72 hours. All specime... 08/03/21 Blood Culture - Preliminary, Resulted No Growth after 72 hours. All specime... 08/02/21 Gram Stain - Final, Complete 08/02/21 Sputum Culture - Final, Complete Escherichia Coli 08/02/21 Respiratory Virus Panel (PCR) (DAMARI) - Final, Complete Respiratory Syncytial Virus BO CLEMONS MD Aug 08, 2021 13:02
[2021-08-08] MEDS: METOPROLOL TART 25 MG TABLET NG SCH (14:07)
[2021-08-09] VITALS (25 sets, daily range): BP systolic 83–136; BP diastolic 56–81
[2021-08-09] MEDS: propofoL 1,000 MG in IV 1 EA IV SCH ×3 (00:01→17:43)
[2021-08-09] MEDS: dexmedeTOMidine 200 MCG in IV 1 EA IV SCH ×11 (00:02→22:28)
[2021-08-09 04:33] LABS: BASO % 0.2 % (0.0-1.0); EOS # 0.1 10^3/uL (0.0-0.5); EOS % 0.6 % (0.0-3.0); HEMATOCRIT 40.4 % (42.0-52.0); LYMPH % 9.8 % (24.0-44.0); MEAN CORPUSCULAR HEMOGLOBIN 30.7 pg (27.0-33.0); MEAN CORPUSCULAR HGB CONC 32.2 g/dl (32.0-36.5); MEAN CORPUSCULAR VOLUME 95.5 fl (80.0-96.0); MONO # 0.9 10^3/uL (0.0-0.8); MONO % 8.9 % (2.0-8.0); NEUTROPHILS # 7.6 10^3/uL (1.5-8.5); NEUTROPHILS % 77.3 % (36.0-66.0); PLATELET COUNT, AUTOMATED 178 10^3/uL (150-450); RED BLOOD COUNT 4.23 10^6/uL (4.30-6.10); WHITE BLOOD COUNT 9.8 10^3/uL (4.0-10.0)
[2021-08-09 04:52] LABS: BLOOD UREA NITROGEN 51 MG/DL (7-18); CALCIUM LEVEL 8.7 MG/DL (8.8-10.2); CARBON DIOXIDE LEVEL 34 MEQ/L (21-32); CHLORIDE LEVEL 103 MEQ/L (98-107); CREATININE FOR GFR 0.89 MG/DL (0.70-1.30); GLOMERULAR FILTRATION RATE > 60.0 (>35); GLUCOSE, FASTING 115 MG/DL (70-100); POTASSIUM SERUM 5.1 MEQ/L (3.5-5.1); SODIUM LEVEL 140 MEQ/L (136-145)
[2021-08-09] MEDS: IPRATROPIUM 0.5MG/ALBUTEROL 2.5MG INH SOL UD 3ML (DUONEB) NEB SCH ×2 (07:34→19:44)
[2021-08-09] MEDS: SENOKOT S TAB NG SCH (08:07)
[2021-08-09] MEDS: CHLORHEXIDINE GLUCONATE 0.12 % 15ML UDC (PERIDEX ORAL RINSE) MT SCH ×2 (08:07→20:48)
[2021-08-09] MEDS: METOPROLOL TART 25 MG TABLET NG SCH ×2 (08:07→09:32)
[2021-08-09] MEDS: APIXABAN 5 MG TAB (ELIQUIS) NG SCH ×2 (08:07→20:49)
[2021-08-09] MEDS: PANTOPRAZOLE 40MG VIAL (C9113 PER 1) IV SCH (08:07)
--- NOTE | 2021-08-09 09:01 | REP ---
INDICATION: Resp Failure. COMPARISON: 08/02/2021 as well as other prior exams. TECHNIQUE: Single portable AP view of the chest was performed. FINDINGS: There are diffuse bilateral infiltrates unchanged. Consolidation in the left lower lobe may be mildly increased. There is cardiomegaly. There is calcification of the thoracic aorta. The mediastinal silhouette is unchanged. Right central venous catheter is unchanged in position. Endotracheal tube is seen with the tip approximately 8 mm above the papa. Nasogastric tube is seen with side port in the stomach. There is increased gaseous distension of bowel loops in the upper abdomen. IMPRESSION: Suspect mild increase in left lower lobe consolidation, otherwise diffuse bilateral infiltrates appear essentially unchanged. There is increased gaseous distention of bowel loops in the upper abdomen. <Electronically signed by Demetri Andino > 08/09/21 [id number]
[2021-08-09 09:13] LABS: ABG BASE EXCESS 5.7 (-2.0-2.0); ABG HCO3 29.7 MEQ/L (22.0-26.0); ABG O2 SATURATION 97.1 % (95.0-99.0); ABG PARTIAL PRESSURE O2 92.5 mmHg (75.0-100.0); ABG STANDARD HCO3 29.6 MEQ/L (22.0-26.0); ABG pH (ARTERIAL) 7.478 UNITS (7.350-7.450)
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
--- NOTE | 2021-08-09 11:47 | REP ---
INDICATION: Hypoxemia. COMPARISON: 08/02/2021. TECHNIQUE: CT chest performed without the use of intravenous contrast. Sagittal and coronal reconstruction images are performed. FINDINGS: Lungs: Bilateral lower lobe consolidation has mildly worsened compared to the prior study. Scattered patchy infiltrates more superiorly in both lungs are essentially unchanged. Mediastinum: No gross adenopathy. Charmaine: No gross adenopathy. Axilla: No gross adenopathy. Pleura: Small bilateral effusions have mildly increased since the prior study.. Heart: There is [id number] cardiomegaly. Thoracic aorta: No aneurysm. There is an endotracheal tube present, the tip is just superior to the papa. There is a right central venous catheter with tip in the superior vena cava. There is a nasogastric tube with the distal end in the stomach. Visualized osseous structures: There are degenerative changes of the spine with stable compression deformities.. IMPRESSION: Increased consolidation in both lower lobes. Mild increased bilateral pleural effusions. <Electronically signed by Demetri Andino > 08/09/21 [id number]
--- NOTE | 2021-08-09 11:47 | REP ---
INDICATION: Hypoxemia/ abd distention. COMPARISON: 03/09/2015 the only prior also without contrast TECHNIQUE: Standard helical technique without contrast FINDINGS: Liver, gallbladder, spleen, pancreas, adrenal glands, and kidneys are unchanged. There is no significant change in appearance of the abdominal aorta or para-regions. There is right-sided and transverse colon distension. There is no free fluid or free air. There is content in the rectosigmoid vault. There is a Pizano balloon decompressing the urinary bladder. There is sigmoid colon diverticulosis. There is no evidence of a mass or adenopathy. The tip of the nasogastric tube is seen in the stomach fundal region. Multiple vertebral body compression fractures are identified. Some represent a change from the prior exam. IMPRESSION: 1. Probable colonic ileus. No definite evidence of obstruction at this time. 2. Chronic osseous changes. 3. Other findings as described above. <Electronically signed by Gio Moore > 08/09/21 [id number]
[2021-08-09] MEDS: MIDAZOLAM INJ 2MG/2ML VIAL (J2250 PER 1MG) IV PRN (20:55)
[2021-08-10] VITALS (21 sets, daily range): BP systolic 91–130; BP diastolic 54–84
[2021-08-10] MEDS: MIDAZOLAM INJ 2MG/2ML VIAL (J2250 PER 1MG) IV PRN ×4 (00:30→20:29)
[2021-08-10] MEDS: dexmedeTOMidine 200 MCG in IV 1 EA IV SCH ×9 (00:54→22:56)
[2021-08-10] MEDS: propofoL 1,000 MG in IV 1 EA IV SCH ×3 (00:57→20:15)
[2021-08-10 05:30] LABS: BASO % 0.1 % (0.0-1.0); EOS # 0.1 10^3/uL (0.0-0.5); EOS % 0.7 % (0.0-3.0); HEMATOCRIT 38.8 % (42.0-52.0); HEMOGLOBIN 12.7 g/dl (13.5-17.5); LYMPH # 1.2 10^3/uL (1.5-5.0); LYMPH % 8.6 % (24.0-44.0); MEAN CORPUSCULAR HGB CONC 32.7 g/dl (32.0-36.5); MEAN CORPUSCULAR VOLUME 94.6 fl (80.0-96.0); MONO # 0.7 10^3/uL (0.0-0.8); MONO % 4.7 % (2.0-8.0); NEUTROPHILS % 84.1 % (36.0-66.0); PLATELET COUNT, AUTOMATED 174 10^3/uL (150-450); WHITE BLOOD COUNT 14.3 10^3/uL (4.0-10.0)
[2021-08-10 05:53] LABS: BLOOD UREA NITROGEN 54 MG/DL (7-18); CARBON DIOXIDE LEVEL 33 MEQ/L (21-32); CHLORIDE LEVEL 102 MEQ/L (98-107); CREATININE FOR GFR 1.13 MG/DL (0.70-1.30); GLOMERULAR FILTRATION RATE > 60.0 (>35); GLUCOSE, FASTING 102 MG/DL (70-100); POTASSIUM SERUM 4.7 MEQ/L (3.5-5.1); SODIUM LEVEL 141 MEQ/L (136-145)
[2021-08-10] MEDS: IPRATROPIUM 0.5MG/ALBUTEROL 2.5MG INH SOL UD 3ML (DUONEB) NEB SCH ×2 (07:52→19:12)
[2021-08-10] MEDS ORDERED: VANCOMYCIN HCL 1,000 MG, VIAL MATE ADAPTER 1 EACH in NS 250 ML IV SCH (08:50)
[2021-08-10] MEDS: SENOKOT S TAB NG SCH (09:01)
[2021-08-10] MEDS: CHLORHEXIDINE GLUCONATE 0.12 % 15ML UDC (PERIDEX ORAL RINSE) MT SCH ×2 (09:01→20:22)
[2021-08-10] MEDS: PANTOPRAZOLE 40MG VIAL (C9113 PER 1) IV SCH (09:01)
[2021-08-10] MEDS: APIXABAN 5 MG TAB (ELIQUIS) NG SCH ×2 (09:02→20:22)
[2021-08-10] MEDS: METOPROLOL TART 25 MG TABLET NG SCH (09:02)
[2021-08-10] MEDS: cefTRIAXone SOD 1 GM in D5W MINI-BAG PLUS 50 ML IV SCH (10:40)
--- NOTE | 2021-08-10 10:45 | CCN ---
CRITICAL CARE NOTE DATE: 08/10/2021 START TIME: 08 STOP TIME: 919 SUBJECTIVE: I again attended Joe Fuller here in the intensive care unit. The patient has been examined, chart reviewed. I spoke at length with the nurse at the bedside. He had CT scan of the chest, abdomen and pelvis yesterday. This confirms bilateral lower lobe consolidation with air bronchograms. His abdominal distention mainly seems to be on the basis of large bowel distention. He is still having some loose stools. T-max overnight 98.9, blood pressure 90 to 120s, heart rate generally in the 70s to low 100s with his atrial fibrillation, respiratory rate 18-24. Ins and outs midnight to midnight: 1193 ml in with 1190 ml out. Most recent laboratories show a white blood cell count elevated today at 14.3, hemoglobin 12.7, platelet count of 174,000, 84% segs, no bands. Sodium of 141, potassium of 4.7, chloride 102, CO2 33, BUN 54, creatinine 1.13. Blood gas pending. Sputum gram stain C&S yesterday has no results reported as of yet. OBJECTIVE: General: On exam, he is sedate, agitated when aroused. HEENT: Pupils reactive. Trachea is in the midline. Chest: Shows diminished breath sounds at the bases with dependent egophony. There are some scattered rhonchi. Expansion is markedly diminished but symmetric. No rubs or wheezes. Cardiac: Irregularly irregular. Peripheral pulses diminished but palpable. Trace edema. Abdomen: Remains distended, somewhat less than yesterday. There are bowel sounds somewhat high pitched. No convincing rebound. No obvious organomegaly or masses are noted. Extremities: No cyanosis or clubbing. Neurologic: He does move all extremities when sedation is lightened. The most pressing problems requiring my presence at the bedside: 1. Respiratory failure requiring mechanical ventilatory support. 2. RSV with bronchiolitis, precipitating his respiratory failure. 3. Bilateral lower lobe pneumonias secondary to the above. 4. Underlying agitation. 5. Atrial fibrillation. 6. Chronic anticoagulation. 7. Ulcer and DVT prophylaxis. In view of his elevated white count and findings on his CT scan from yesterday, I have restarted antimicrobials. Sputum, gram stain, C&S were sent yesterday. Another will be sent today as I have no report. He will be started on Rocephin and vancomycin empirically. He does have reasonable bowel sounds and most of the issues appear to be more large bowel related. Therefore, we will restart tube feeds. If he does not tolerate these, then we will begin TPN. He is rate controlled on his atrial fibrillation. He remains on apixaban. He is on ulcer prophylaxis with Protonix. He remains sedated and at this point is not ready for weaning. At this point, we will proceed as outlined above. He does remain critically ill. My hope is that if we can improve his abdominal issues and his distention that we will be able to push him a little bit more from a weaning standpoint. Certainly at this point his mild abdominal distention and his mental status preclude that. We will proceed as outlined above. I left the bedside at 0920 hours. 35 minutes of critical care time were at the bedside not including procedures.
[2021-08-10] MEDS ORDERED: VANCOMYCIN HCL 1,000 MG, VIAL MATE ADAPTER 1 EACH in NS 250 ML IV ONE ×2 (12:00→13:00)
[2021-08-11] VITALS (23 sets, daily range): BP systolic 78–124; BP diastolic 51–73
[2021-08-11] MEDS: dexmedeTOMidine 200 MCG in IV 1 EA IV SCH ×10 (01:33→23:49)
[2021-08-11] MEDS: propofoL 1,000 MG in IV 1 EA IV SCH ×3 (02:38→21:41)
[2021-08-11 04:55] LABS: BASO % 0.1 % (0.0-1.0); EOS # 0.2 10^3/uL (0.0-0.5); EOS % 1.1 % (0.0-3.0); HEMATOCRIT 38.8 % (42.0-52.0); HEMOGLOBIN 12.7 g/dl (13.5-17.5); LYMPH # 0.8 10^3/uL (1.5-5.0); LYMPH % 5.7 % (24.0-44.0); MEAN CORPUSCULAR HEMOGLOBIN 30.9 pg (27.0-33.0); MEAN CORPUSCULAR HGB CONC 32.7 g/dl (32.0-36.5); MEAN CORPUSCULAR VOLUME 94.4 fl (80.0-96.0); MONO # 0.5 10^3/uL (0.0-0.8); MONO % 3.6 % (2.0-8.0); NEUTROPHILS # 13.1 10^3/uL (1.5-8.5); NEUTROPHILS % 88.5 % (36.0-66.0); PLATELET COUNT, AUTOMATED 183 10^3/uL (150-450); RED BLOOD COUNT 4.11 10^6/uL (4.30-6.10); WHITE BLOOD COUNT 14.8 10^3/uL (4.0-10.0)
[2021-08-11 05:16] LABS: BLOOD UREA NITROGEN 51 MG/DL (7-18); CALCIUM LEVEL 8.5 MG/DL (8.8-10.2); CARBON DIOXIDE LEVEL 30 MEQ/L (21-32); CHLORIDE LEVEL 106 MEQ/L (98-107); CREATININE FOR GFR 1.03 MG/DL (0.70-1.30); GLOMERULAR FILTRATION RATE > 60.0 (>35); GLUCOSE, FASTING 134 MG/DL (70-100); POTASSIUM SERUM 4.2 MEQ/L (3.5-5.1); SODIUM LEVEL 142 MEQ/L (136-145)
[2021-08-11] MEDS: MIDAZOLAM INJ 2MG/2ML VIAL (J2250 PER 1MG) IV PRN (05:49)
[2021-08-11] MEDS: IPRATROPIUM 0.5MG/ALBUTEROL 2.5MG INH SOL UD 3ML (DUONEB) NEB SCH ×2 (08:01→20:25)
[2021-08-11] MEDS: cefTRIAXone SOD 1 GM in D5W MINI-BAG PLUS 50 ML IV SCH (08:50)
[2021-08-11] MEDS: APIXABAN 5 MG TAB (ELIQUIS) NG SCH ×2 (08:50→21:24)
[2021-08-11] MEDS: PANTOPRAZOLE 40MG VIAL (C9113 PER 1) IV SCH (08:50)
[2021-08-11] MEDS: CHLORHEXIDINE GLUCONATE 0.12 % 15ML UDC (PERIDEX ORAL RINSE) MT SCH ×2 (08:50→21:24)
[2021-08-11] MEDS: SENOKOT S TAB NG SCH (08:50)
[2021-08-11] MEDS: METOPROLOL TART 25 MG TABLET NG SCH (08:51)
--- NOTE | 2021-08-11 09:29 | REP ---
INDICATION: Resp Failure. COMPARISON: Portable chest, 08/09/2021. TECHNIQUE: Upright AP portable chest image was obtained. FINDINGS: There is diffuse bilateral airspace disease consistent with pneumonia or pulmonary edema. There are bilateral pleural effusions and bibasilar atelectasis. There is cardiomegaly. Endotracheal tube, nasogastric tube and right IJ deep line are unchanged in position. There are multiple distended loops of bowel in the upper abdomen. IMPRESSION: 1. Probable congestive heart failure with superimposed pneumonia not significantly changed. 2. Endotracheal tube, nasogastric tube and right IJ deep line are unchanged. 3. Distended loops of bowel in the upper abdomen may be developing ileus, less likely obstruction. <Electronically signed by Carlos A Archuleta > 08/11/21 [id number]
[2021-08-11 10:17] LABS: ABG BASE EXCESS 2.8 (-2.0-2.0); ABG HCO3 25.2 MEQ/L (22.0-26.0); ABG O2 SATURATION 95.4 % (95.0-99.0); ABG PARTIAL PRESSURE CO2 31.8 mmHg (35.0-45.0); ABG PARTIAL PRESSURE O2 74.1 mmHg (75.0-100.0); ABG STANDARD HCO3 26.9 MEQ/L (22.0-26.0); ABG TOTAL CO2 26.1 MEQ/L (23.0-31.0); ABG pH (ARTERIAL) 7.516 UNITS (7.350-7.450)
--- NOTE | 2021-08-11 10:58 | CCN ---
CRITICAL CARE NOTE DATE: 08/11/2021 START TIME: 919 STOP TIME: 10 o'clock SUBJECTIVE: I again attended Joe Fuller here in the intensive care unit. The patient has been examined, chart reviewed. I spoke at length with the nurse at the bedside. T max overnight 98.6, blood pressure 70s to the 110s. Heart rate generally in the 80s to the low 100s. Respiratory rate is 18-24 without accessory muscle use. Ins and outs midnight to midnight 290 mL in with 1630 mL out. Most recent laboratories show a white blood cell count of 14.8, hemoglobin 12.7, platelet count of 183,000, 80% segs, no bands. Sodium of 142, potassium of 4.2, chloride 106, CO2 30, BUN 51, creatinine 1.03. Blood gas this morning is pending. Chest x-ray from this morning shows suboptimal inspiratory effort. There is vascular crowding. I do not see a left hemidiaphragm well but see the right hemidiaphragm a little better than several days ago. Endotracheal tube is mildly low. Gastric tube in good position. OBJECTIVE: General: On exam, he is sedate but moves all extremities when stimulated. Lines and tubes in good position. There is a right IJ central line in place. HEENT: Trachea is in the midline. Chest: With diminished but symmetric expansion. Fairly clear anteriorly. There are rare rhonchi cleared with suctioning. Diminished at the bases dependently. Cardiac: Distant, generally regular. Peripheral pulses palpable. Trace edema. Abdomen: Distended, somewhat less tympanitic but with hypoactive bowel sounds. No convincing organomegaly or masses. Does not appear significantly tender and no obvious rebound. Extremities: No cyanosis or clubbing. Neurologic: As outlined above. The most pressing problems requiring my presence at the bedside: 1. Respiratory failure requiring mechanical ventilatory support. 2. Acute hypoxemic respiratory failure. 3. RSV with bronchiolitis most likely is the precipitant for the above. 4. Bilateral lower lobe pneumonias by CT scan. 5. Underlying agitation, suspect preexisting dementia. 6. Atrial fibrillation. 7. Chronic anticoagulation. 8. Ulcer and DVT prophylaxis. At this point, we will continue his current medication regimen for his atrial fibrillation. He seems reasonably rate controlled. He has not been hypotensive but rarely and briefly. From an infectious disease standpoint, he remains on vancomycin and ceftriaxone. I await his final gram stain, C&S as well as culture. He had E. coli on the . We will make ventilator changes as able. He is maintained on an SIMV and pressure support and I will drop his mandatory rate today. I will let him do a little bit more in the way of work of breathing. He has had a little less in the way of loose stools. He remains on Reglan as we are having difficulties getting him to tolerate enteral feeds. We will put his feeds at a low dose and see if we can get things moving that way. He remains on sedation as when his sedation is lightened, he is agitated and combative. His CT scan on admission showed nothing focal. He remains on ulcer and DVT prophylaxis as outlined above. At this point, we will proceed as outlined above. The next several days, I believe, will tell the tale regarding his GI tract function. My hopes is that if we can get his abdomen less distended, we will be able to push him some from a weaning standpoint. We will proceed as outlined above. He remains critically ill. His prognosis is guarded. I left the bedside at 10 o'clock. 40 minutes of critical care time were at the bedside not including procedures.
[2021-08-11] MEDS ORDERED: VANCOMYCIN HCL 750 MG, VIAL MATE ADAPTER 1 EACH in NS 250 ML IV SCH ×2 (13:00→14:00)
[2021-08-11 17:14] LABS: ABG BASE EXCESS 0.9 (-2.0-2.0); ABG HCO3 23.5 MEQ/L (22.0-26.0); ABG O2 SATURATION 96.6 % (95.0-99.0); ABG PARTIAL PRESSURE CO2 31.5 mmHg (35.0-45.0); ABG PARTIAL PRESSURE O2 91.5 mmHg (75.0-100.0); ABG STANDARD HCO3 25.2 MEQ/L (22.0-26.0); ABG TOTAL CO2 24.4 MEQ/L (23.0-31.0)
[2021-08-12] VITALS (25 sets, daily range): BP systolic 91–133; BP diastolic 51–85
[2021-08-12] MEDS: dexmedeTOMidine 200 MCG in IV 1 EA IV SCH ×3 (02:39→07:39)
[2021-08-12 04:35] LABS: BASO % 0.2 % (0.0-1.0); EOS # 0.2 10^3/uL (0.0-0.5); EOS % 1.2 % (0.0-3.0); HEMOGLOBIN 12.5 g/dl (13.5-17.5); LYMPH # 0.8 10^3/uL (1.5-5.0); LYMPH % 6.1 % (24.0-44.0); MEAN CORPUSCULAR HEMOGLOBIN 30.6 pg (27.0-33.0); MEAN CORPUSCULAR HGB CONC 32.1 g/dl (32.0-36.5); MEAN CORPUSCULAR VOLUME 95.6 fl (80.0-96.0); MONO # 0.6 10^3/uL (0.0-0.8); MONO % 4.4 % (2.0-8.0); NEUTROPHILS # 11.1 10^3/uL (1.5-8.5); NEUTROPHILS % 87.5 % (36.0-66.0); PLATELET COUNT, AUTOMATED 192 10^3/uL (150-450); RED BLOOD COUNT 4.08 10^6/uL (4.30-6.10); WHITE BLOOD COUNT 12.7 10^3/uL (4.0-10.0)
[2021-08-12 05:00] LABS: BLOOD UREA NITROGEN 50 MG/DL (7-18); CALCIUM LEVEL 8.4 MG/DL (8.8-10.2); CARBON DIOXIDE LEVEL 29 MEQ/L (21-32); CHLORIDE LEVEL 110 MEQ/L (98-107); CREATININE FOR GFR 1.17 MG/DL (0.70-1.30); GLOMERULAR FILTRATION RATE > 60.0 (>35); GLUCOSE, FASTING 145 MG/DL (70-100); POTASSIUM SERUM 4.2 MEQ/L (3.5-5.1); SODIUM LEVEL 143 MEQ/L (136-145)
[2021-08-12 06:16] LABS: ABG BASE EXCESS 1.2 (-2.0-2.0); ABG HCO3 24.6 MEQ/L (22.0-26.0); ABG O2 SATURATION 95.5 % (95.0-99.0); ABG PARTIAL PRESSURE O2 80.9 mmHg (75.0-100.0); ABG STANDARD HCO3 25.5 MEQ/L (22.0-26.0); ABG TOTAL CO2 25.6 MEQ/L (23.0-31.0); ABG pH (ARTERIAL) 7.464 UNITS (7.350-7.450)
[2021-08-12] MEDS: propofoL 1,000 MG in IV 1 EA IV SCH ×3 (06:42→22:11)
[2021-08-12] MEDS: IPRATROPIUM 0.5MG/ALBUTEROL 2.5MG INH SOL UD 3ML (DUONEB) NEB SCH ×2 (07:38→20:50)
[2021-08-12] MEDS: SENOKOT S TAB NG SCH (09:00)
--- NOTE | 2021-08-12 09:07 | REP ---
INDICATION: Resp Failure. COMPARISON: Multiple the latest 08/11/2021 FINDINGS: The technique utilized in obtaining the radiograph has magnified the cardiac silhouette and accentuated the interstitial markings. The cardiomediastinal silhouette is unchanged. There is cardiomegaly accentuated by technique. The tubes and line are unchanged. The lung ovalle appear better aerated today. Diffuse bilateral interstitial and airspace opacity seen previously are fewer and less dense. There is, however, persistent silhouetting out of the diaphragmatic surface of the left lung. There is no significant change in appearance of the osseous structures. IMPRESSION: 1. Tubes and line unchanged. 2. Improved lung ovalle. <Electronically signed by Gio Moore > 08/12/21 [id number]
[2021-08-12] MEDS: PANTOPRAZOLE 40MG VIAL (C9113 PER 1) IV SCH (09:24)
[2021-08-12] MEDS: METOPROLOL TART 25 MG TABLET NG SCH (09:24)
[2021-08-12] MEDS: APIXABAN 5 MG TAB (ELIQUIS) NG SCH ×2 (09:24→21:13)
[2021-08-12] MEDS: CHLORHEXIDINE GLUCONATE 0.12 % 15ML UDC (PERIDEX ORAL RINSE) MT SCH ×2 (09:24→21:12)
[2021-08-12] MEDS: cefTRIAXone SOD 1 GM in D5W MINI-BAG PLUS 50 ML IV SCH (09:28)
[2021-08-12 09:34] LABS: VANCOMYCIN RANDOM 8.7 UG/ML
[2021-08-12] MEDS: VANCOMYCIN HCL 750 MG, VIAL MATE ADAPTER 1 EACH in NS 250 ML IV SCH ×2 (10:27→21:13)
[2021-08-12] MEDS: fentaNYL 100 MCG/2 ML INJECTION (J3010) IV PRN ×3 (10:28→18:12)
--- NOTE | 2021-08-12 12:48 | CCN ---
CRITICAL CARE NOTE DATE: 08/12/2021 START TIME: 839 STOP TIME: 916 SUBJECTIVE: I again attended Joe Fuller here in the intensive care unit. The patient has been examined, chart reviewed and I spoke at length with the nurse at the bedside. T max overnight 98.9, blood pressure 90 to the low 100s, heart rate generally in the 80s to the 90s with underlying atrial fibrillation, pulse ox in the mid-90s. Ins and outs midnight to midnight 195 mL in with 1425 mL out. White blood cell count 12.7, hemoglobin 12.5, platelet count of 192,000, 87% segs, no bands. Sodium 143, potassium 42, chloride 110, CO2 29, BUN 50, creatinine 1.17. Blood gas done this morning on SIMV of 16, tidal volume of 500, PEEP of 5, pressure support of 15 and FiO2 of 40% has a pH 7.464, pCO2 of 35.0, PaO2 of 80.9, saturation 95.9%. Chest x-ray shows lines and tubes in good position. Better aeration at the bases although some still increased density in the retrocardiac area. OBJECTIVE: General: On exam, he is sedate and moves all extremities when lightened. HEENT: Pupils do react. Membranes are moist. Chest: Shows diminished but symmetric expansion. There are less rhonchi today. Diminished at the bases. No convincing egophony or wheeze. Cardiac: Irregularly irregular. Peripheral pulses diminished but palpable. Mild edema is unchanged. Abdomen: Mildly distended. There are better bowels sounds today although occasionally still high pitched. No convincing organomegaly or masses. Extremities: No cyanosis or clubbing. Neurologic: As outlined above. He is sedate. The most pressing problems requiring my presence at the bedside: 1. Respiratory failure requiring mechanical ventilatory support. 2. RSV bronchiolitis with secondary bacterial pneumonia. 3. Altered mental status, question baseline dementia. 4. Ileus. 5. Chronic anticoagulation. 6. Ulcer and DVT prophylaxis. At this point, he is tolerating his tube feeds a little bit better and we will slowly increase the rate. He does have intermittent stooling which is promising. His mental status remains an issue. At this point, he has been on Precedex for several days and I will discontinue that. He seems reasonable on low dose Propofol and will still use p.r.n. versed. We will continue to decrease his ventilatory support as we are able. For now, we will continue his current broad spectrum antimicrobials. His gram stain C&S again showed E. coli from a culture from the . He will therefore be continued to maintain on Rocephin and the sensitivities do show that that is a reasonable choice. I will likely discontinue his vancomycin tomorrow if I get no other significant culture results. For now, his atrial fibrillation is rate controlled. He is chronically anticoagulated for that. He is on DVT prophylaxis in that regard. He is also on ulcer prophylaxis. At this point, we will proceed as outlined above. His prognosis still remains guarded at best in view of his multiorgan dysfunction. I left the bedside at 0917 hours. 37 minutes of critical care time were at the bedside not including procedures.
[2021-08-12] MEDS: MIDAZOLAM INJ 2MG/2ML VIAL (J2250 PER 1MG) IV PRN ×3 (12:55→21:17)
[2021-08-12] MEDS ORDERED: METOPROLOL TART 25 MG TABLET NG ONE (16:00)
[2021-08-12 22:31] LABS: MAGNESIUM LEVEL 2.4 MG/DL (1.8-2.4)
[2021-08-13] VITALS (19 sets, daily range): BP systolic 97–158; BP diastolic 48–99
[2021-08-13] MEDS: MIDAZOLAM INJ 2MG/2ML VIAL (J2250 PER 1MG) IV PRN ×2 (01:48→20:27)
[2021-08-13] MEDS: propofoL 1,000 MG in IV 1 EA IV SCH (04:48)
[2021-08-13 05:54] LABS: BASO % 0.1 % (0.0-1.0); EOS # 0.3 10^3/uL (0.0-0.5); EOS % 2.2 % (0.0-3.0); HEMATOCRIT 37.1 % (42.0-52.0); HEMOGLOBIN 11.9 g/dl (13.5-17.5); LYMPH # 0.9 10^3/uL (1.5-5.0); LYMPH % 6.6 % (24.0-44.0); MEAN CORPUSCULAR HEMOGLOBIN 30.8 pg (27.0-33.0); MEAN CORPUSCULAR HGB CONC 32.1 g/dl (32.0-36.5); MEAN CORPUSCULAR VOLUME 96.1 fl (80.0-96.0); MONO # 0.9 10^3/uL (0.0-0.8); MONO % 6.1 % (2.0-8.0); NEUTROPHILS # 11.6 10^3/uL (1.5-8.5); NEUTROPHILS % 84.2 % (36.0-66.0); PLATELET COUNT, AUTOMATED 216 10^3/uL (150-450); RED BLOOD COUNT 3.86 10^6/uL (4.30-6.10); WHITE BLOOD COUNT 13.8 10^3/uL (4.0-10.0)
[2021-08-13 06:12] LABS: ABG BASE EXCESS 0.5 (-2.0-2.0); ABG HCO3 24.6 MEQ/L (22.0-26.0); ABG O2 SATURATION 96.6 % (95.0-99.0); ABG PARTIAL PRESSURE CO2 37.7 mmHg (35.0-45.0); ABG PARTIAL PRESSURE O2 88.3 mmHg (75.0-100.0); ABG STANDARD HCO3 24.9 MEQ/L (22.0-26.0); ABG TOTAL CO2 25.7 MEQ/L (23.0-31.0); ABG pH (ARTERIAL) 7.432 UNITS (7.350-7.450)
[2021-08-13 06:15] LABS: BLOOD UREA NITROGEN 52 MG/DL (7-18); CALCIUM LEVEL 8.1 MG/DL (8.8-10.2); CARBON DIOXIDE LEVEL 28 MEQ/L (21-32); CHLORIDE LEVEL 112 MEQ/L (98-107); CREATININE FOR GFR 1.14 MG/DL (0.70-1.30); GLOMERULAR FILTRATION RATE > 60.0 (>35); GLUCOSE, FASTING 133 MG/DL (70-100); SODIUM LEVEL 145 MEQ/L (136-145)
[2021-08-13] MEDS: IPRATROPIUM 0.5MG/ALBUTEROL 2.5MG INH SOL UD 3ML (DUONEB) NEB SCH ×2 (07:25→19:17)
[2021-08-13] MEDS ORDERED: METOPROLOL TART 25 MG TABLET NG SCH (09:00)
[2021-08-13] MEDS: CHLORHEXIDINE GLUCONATE 0.12 % 15ML UDC (PERIDEX ORAL RINSE) MT SCH ×2 (09:15→20:25)
[2021-08-13] MEDS: APIXABAN 5 MG TAB (ELIQUIS) NG SCH ×2 (09:16→20:26)
[2021-08-13] MEDS: PANTOPRAZOLE 40MG VIAL (C9113 PER 1) IV SCH (09:16)
[2021-08-13] MEDS: cefTRIAXone SOD 1 GM in D5W MINI-BAG PLUS 50 ML IV SCH (09:16)
[2021-08-13] MEDS: SENOKOT S TAB NG SCH (09:17)
[2021-08-13] MEDS ORDERED: ACETAMINOPHEN 325 MG/10.15 ML UDC GT PRN (09:20)
--- NOTE | 2021-08-13 09:32 | REP ---
INDICATION: Resp Failure. COMPARISON: 08/12/2021. TECHNIQUE: Single portable AP view of the chest was performed. FINDINGS: There is continued improvement of interstitial and alveolar opacities bilaterally, with mild residual. There is persistent consolidation in the left lung base. The heart and mediastinum are unchanged. Right central venous catheter, endotracheal tube and nasogastric tube appear unchanged. IMPRESSION: Continued decrease in scattered interstitial and alveolar opacities. Persistent consolidation left lung base. <Electronically signed by Demetri Andino > 08/13/21 0989
--- NOTE | 2021-08-13 10:06 | CCN ---
CRITICAL CARE NOTE DATE: 08/13/2021 START TIME: 839 STOP TIME: 916 SUBJECTIVE: I again attended Joe Fuller here in the Intensive Care Unit. Patient has been examined and chart reviewed. I spoke at length with the nurse at the bedside. T-max overnight 98.2 although currently he is 101.5, heart rate is 118 to 130s. Remains with frequent ectopy and underlying atrial fibrillation. Respiratory rate is 20 to occasionally 30. Ins and outs midnight to midnight: 913 ml in with 1500 ml out. Most recent laboratories shows white blood cell count 13.8, hemoglobin 11.9, platelet count of 216,000, 84% segs, no bands. Sodium 145, potassium 4.0, chloride 112, CO2 28, BUN 52, creatinine 1.14, glucose of 133. Blood gas done this morning on an SIMV of 8, tidal volume of 500, PEEP of 5, pressure support of 15, FIO2 of 40%, has a pH of 7.432, pCO2 of 37.7, pO2 of 88.3. Saturation 96.6%. Chest x-ray done this morning compared to multiple priors shows the endotracheal tube to be above the papa. NG-tube is in the stomach. Has poor inspiratory effort. This is chronic and I cannot rule out a retrocardiac infiltrate. No acute findings compared to yesterday. OBJECTIVE: On exam, his Propofol is off. He is much more calm this morning. I do believe he is very hard of hearing. Pupils do react. Trachea is in the midline. Chest shows some crackles at the bases with decreased breath sounds, occasional rhonchus clears with cough, expansion diminished, is symmetric. Cardiac exam is irregularly irregular, tachycardic with ectopy. Peripheral pulses palpable, edema is unchanged. Abdomen is mildly distended although softer than yesterday. There are active bowel sounds. No convincing organomegaly or masses. Extremities: No cyanosis or clubbing. Neurologically, he is awake, is much more calm today. Does appear more interactive. Psych: Not agitated today. Most pressing problems requiring my presence at the bedside: 1. Hypoxemic respiratory failure requiring mechanical ventilatory support. 2. RSV bronchiolitis with secondary bacterial pneumonia. 3. Underlying altered mental status. 4. Ileus, appears improving. 5. Chronic anticoagulation. 6. Atrial fibrillation. 7. Ulcer and DVT prophylaxis. He is a little more tachycardic this morning. I believe much of it is driven on the basis of his fever. We increased his dose of Metoprolol yesterday. He is on much less sedation. I do believe he is probably more hard of hearing than was realized and I believe this coupled with his acute illness and on board sedation made it difficult for him. I am hoping that we can push him a little bit more in the next 24 to 48 hours regarding weaning from mechanical ventilatory support. His repeat sputum again grew E. coli, morejon sensitive. I will discontinue his Vancomycin after I have results of repeat cultures that are being drawn today in view of his fever. The nursing staff spoke with the family yesterday regarding potential advance directives. I will update them at some point as well. Overall, he does remain critically ill. Will continue to push his wean as tolerated. He is tolerating low dose tube feeds and did have a bowel movement yesterday and my hope is that will continue to improve as well. In view of his multiorgan dysfunction and his advanced age, however his prognosis remains guarded at best. I left the bedside at 0917 hours. Forty-seven minutes of critical care time at the bedside not including procedures.
[2021-08-13] MEDS: VANCOMYCIN HCL 750 MG, VIAL MATE ADAPTER 1 EACH in NS 250 ML IV SCH ×2 (11:06→22:20)
[2021-08-13] MEDS ORDERED: SODIUM CHLORIDE 0.9% INJ 10 ML SYR IV PRN (17:40)
[2021-08-13] MEDS ORDERED: SODIUM CHLORIDE 0.9% INJ 10 ML SYR IV SCH (18:00)
[2021-08-13] MEDS: fentaNYL 100 MCG/2 ML INJECTION (J3010) IV PRN ×2 (20:27→22:30)
[2021-08-14] VITALS (26 sets, daily range): BP systolic 109–195; BP diastolic 56–117
[2021-08-14] MEDS: fentaNYL 100 MCG/2 ML INJECTION (J3010) IV PRN ×2 (00:06→02:28)
[2021-08-14 04:09] LABS: BASO % 0.2 % (0.0-1.0); EOS # 0.2 10^3/uL (0.0-0.5); EOS % 1.8 % (0.0-3.0); HEMATOCRIT 34.9 % (42.0-52.0); LYMPH # 0.6 10^3/uL (1.5-5.0); MEAN CORPUSCULAR HEMOGLOBIN 30.7 pg (27.0-33.0); MEAN CORPUSCULAR HGB CONC 31.5 g/dl (32.0-36.5); MEAN CORPUSCULAR VOLUME 97.5 fl (80.0-96.0); MONO # 0.8 10^3/uL (0.0-0.8); MONO % 6.3 % (2.0-8.0); NEUTROPHILS # 10.6 10^3/uL (1.5-8.5); NEUTROPHILS % 86.1 % (36.0-66.0); PLATELET COUNT, AUTOMATED 213 10^3/uL (150-450); RED BLOOD COUNT 3.58 10^6/uL (4.30-6.10); WHITE BLOOD COUNT 12.3 10^3/uL (4.0-10.0)
[2021-08-14 04:33] LABS: ALBUMIN 1.7 GM/DL (3.2-5.2); ALT/SGPT 151 U/L (12-78); BILIRUBIN,TOTAL 0.6 MG/DL (0.2-1.0); BLOOD UREA NITROGEN 45 MG/DL (7-18); CALCIUM LEVEL 8.1 MG/DL (8.8-10.2); CARBON DIOXIDE LEVEL 28 MEQ/L (21-32); CHLORIDE LEVEL 118 MEQ/L (98-107); CHOLESTEROL LEVEL 130 MG/DL (< 200); CPK CREATINE PHOSPHOKINASE 236 U/L (39-308); CREATININE FOR GFR 0.96 MG/DL (0.70-1.30); GLOMERULAR FILTRATION RATE > 60.0 (>35); GLUCOSE, FASTING 106 MG/DL (70-100); LDH LACTATE DEHYDROGENASE 303 U/L (87-241); PHOSPHORUS LEVEL 3.5 MG/DL (2.5-4.9); POTASSIUM SERUM 3.5 MEQ/L (3.5-5.1); SODIUM LEVEL 151 MEQ/L (136-145); TOTAL PROTEIN 5.2 GM/DL (6.4-8.2); TRIGLYCERIDES LEVEL 78 MG/DL (<150)
[2021-08-14 06:04] LABS: ABG HCO3 25.1 MEQ/L (22.0-26.0); ABG O2 SATURATION 96.1 % (95.0-99.0); ABG PARTIAL PRESSURE CO2 38.4 mmHg (35.0-45.0); ABG PARTIAL PRESSURE O2 83.4 mmHg (75.0-100.0); ABG STANDARD HCO3 25.3 MEQ/L (22.0-26.0); ABG TOTAL CO2 26.3 MEQ/L (23.0-31.0); ABG pH (ARTERIAL) 7.434 UNITS (7.350-7.450)
[2021-08-14] MEDS: IPRATROPIUM 0.5MG/ALBUTEROL 2.5MG INH SOL UD 3ML (DUONEB) NEB SCH (08:04)
--- NOTE | 2021-08-14 09:55 | CCN ---
CRITICAL CARE NOTE DATE: 08/14/2021 START TIME: 824 STOP TIME: 904 SUBJECTIVE: I again attended Joe Fuller here in the Intensive Care Unit. Patient has been examined and chart reviewed. I spoke at length with the nurse at the bedside. I had a very lengthy discussion with his sister yesterday by phone. This morning he is awake, alert, and does follow commands. He is very hard of hearing. We are able to communicate with him, however. His atrial fibrillation and rate control remains problematic, at times down in the 80s but at other times in the 120s to 130s. It does seem to correlate with his level of agitation. T-max overnight 98.1, blood pressure 109 to 160s, heart rate currently 126 in atrial fibrillation, respiratory rate 18 to 22 without accessory muscle use. Intake and output midnight to midnight: 740 ml in with 1685 ml out. White blood cell count 12.3, hemoglobin 11.0, platelet count of 213,000, 86% segs, no bands. Sodium 151, potassium 3.5, chloride 118, CO2 28, BUN 45, creatinine 0.96, glucose of 106. AST and ALT 136 and 151 respectively. Albumin 1.7. Blood gas done this morning on SIMV of 4, tidal volume of 500, PEEP 5, pressure support of 15, FIO2 of 40%. He has a pH of 7.434, pCO2 of 38.4, pO2 of 83.4, saturation 96.1%. Chest x-ray shows poor inspiratory effort. I cannot rule out a retrocardiac infiltrate but there is vascular crowding and I think that is more on the basis of poor inspiratory effort. OBJECTIVE: On exam, he is awake, reasonably appropriate and at times a little agitated but able to be refocused just with conversation. Pupils are reactive. Sclera are clear. Trachea is in the midline. Chest shows diminished but symmetric expansion. There are some rhonchi that clear with suctioning. Diminished more at the bases. There are some fine dependent crackles noted bilaterally. Cardiac exam is irregularly irregular. Peripheral pulses palpable, edema is unchanged. Abdomen is obese, soft, there are active bowel sounds. No convincing organomegaly or masses. Extremities: No cyanosis or clubbing. Neurologically, as outlined above. He moves all extremities. I believe his major issue is hearing loss. The most pressing problems requiring my presence at the bedside: 1. Respiratory failure, mainly hypoxic. 2. Respiratory bronchiolitis with RSV with subsequent pneumonia. 3. Hearing loss. 4. Atrial fibrillation. 5. Chronic anticoagulation. 6. Hypernatremia. I suspect spurious. At this point, will proceed with a trial of extubation. His sister is completely undecided about what to do with his code status. She will try to get his hearing aids in for him today if at all possible. He does have active bowel sounds. I will discontinue his NG-tube. I will discontinue his Vancomycin from an Infectious Disease standpoint. Cultures mainly grew E. coli fairly sensitive to almost all antimicrobials and will be maintained on Rocephin. I will repeat his electrolytes. I have no obvious reason why his sodium would go from 145 to 151 without significant medications to be responsible for that. We will gently use some IV hydration since he will be off his tube feeds. At this point we will proceed as outlined above. His prognosis remains guarded at best. I left the bedside at 0905 hours. Forty minutes of critical care time at the bedside not including procedures.
--- NOTE | 2021-08-14 09:58 | REP ---
INDICATION: Resp Failure. COMPARISON: 08/13/2021. TECHNIQUE: Single portable AP view of the chest was performed. FINDINGS: Diffuse interstitial opacities bilaterally are essentially unchanged. Consolidative opacity in the left lung base appears mildly improved. The heart and mediastinum are unchanged. Right central venous catheter is unchanged in position. Endotracheal tube tip is 1.5 cm above the papa. Nasogastric tube side port is in the stomach. IMPRESSION: Improved aeration left lung base. <Electronically signed by Demetri Andino > 08/14/21 0924
[2021-08-14 10:08] LABS: ABG BASE EXCESS -0.9 (-2.0-2.0); ABG O2 SATURATION 95.3 % (95.0-99.0); ABG PARTIAL PRESSURE CO2 40.7 mmHg (35.0-45.0); ABG PARTIAL PRESSURE O2 79.4 mmHg (75.0-100.0); ABG STANDARD HCO3 23.7 MEQ/L (22.0-26.0); ABG TOTAL CO2 25.3 MEQ/L (23.0-31.0); ABG pH (ARTERIAL) 7.389 UNITS (7.350-7.450)
[2021-08-14] MEDS: LEVALBUTEROL 1.25 MG/0.5 ML CONCENTRATE NEB INH SCH ×3 (10:24→19:45)
[2021-08-14] MEDS: PANTOPRAZOLE 40MG VIAL (C9113 PER 1) IV SCH (10:29)
[2021-08-14] MEDS: cefTRIAXone SOD 1 GM in D5W MINI-BAG PLUS 50 ML IV SCH (10:29)
[2021-08-14] MEDS: KCL 20MEQ IN D5/0.45NS 1000ML 1,000 ML IV SCH ×2 (10:30→18:34)
[2021-08-14] MEDS: METOPROLOL TART 25 MG TABLET PO SCH ×3 (14:09→23:06)
[2021-08-14] MEDS: APIXABAN 5 MG TAB (ELIQUIS) NG SCH (14:09)
[2021-08-14] MEDS: SENOKOT S TAB NG SCH (14:10)
[2021-08-14] MEDS ORDERED: ACETAMINOPHEN 325 MG/10.15 ML UDC PO PRN (14:25)
[2021-08-14 20:11] LABS: BLOOD UREA NITROGEN 38 MG/DL (7-18); CALCIUM LEVEL 8.4 MG/DL (8.8-10.2); CARBON DIOXIDE LEVEL 29 MEQ/L (21-32); CHLORIDE LEVEL 117 MEQ/L (98-107); CREATININE FOR GFR 0.92 MG/DL (0.70-1.30); GLOMERULAR FILTRATION RATE > 60.0 (>35); GLUCOSE, FASTING 145 MG/DL (70-100); POTASSIUM SERUM 3.4 MEQ/L (3.5-5.1); SODIUM LEVEL 147 MEQ/L (136-145)
[2021-08-14] MEDS: APIXABAN 5 MG TAB (ELIQUIS) PO SCH (20:50)
--- NOTE | 2021-08-14 20:59 | IPNPDOC ---
Text Note Date of Service The patient was seen on 08/14/21. NOTE Brief Synopsis of hospital course: 80-year-old gentleman with past medical history of hypertension, atrial fibrillation on Eliquis, and GERD who presented to the emergency department with a complaint of shortness of breath and was admitted for RSV bronchiolitis and later found to have superimposed E.coli pneumonia. In the emergency department, there was concern of fluid overload and decompensated congestive heart failure and he was given a dose of Lasix 40 mg with a robust response. He initially required oxygen 6 L nasal cannula but throughout the day in the emergency d epartment, he became progressively lethargic and encephalopathic and blood gas showed severe respiratory acidosis with pH of 6.9, PCO2 197 he was ultimately intubated for airway protection i/s/o hypercapnic/hypoxic respiratory failure. He initially had broad spectrum antibiotics that were narrowed to ceftriaxone for CAP having grown E.coli on sputum culture twice. He was extubated on 08/14 and is currently on 40% mask and answerin questions appropriately. OBJECTIVE: General Exam: No Acute Distress, lethargic but awake Eyes: Anicteric, EOMI ENT: Atraumatic Neck: Supple, no JVD or lymphadenopathy Chest : Gross bilateral rhonchi throughout Heart: Irregular, no noted murmurs Abdomen: Slightly distended, nontender, soft, hypoactive Extremities: no Edema, WWP Neuro: EOMI, CN3-12 intact Psych: calm, following commands Assessment: 80-year-old gentleman with past medical history of hypertension, atrial fibrillation on Eliquis, and GERD who presented to the emergency department with a complaint of shortness of breath and admitted for RSV bronchiolitis and pneumonia with course c/b hypercarbic hypoxemic respiratory failure requiring intubation now extubated and improving. Plan #Hypoxic and hypercapnic respiratory failure -Secondary to RSV bronchiolitis and aspiration E. coli pneumonia -extubated, on venti mask, will continue to downtitrate. Will also get swallow eval #Encephalopathy -Much improved. No agitation, following commands. Is very hard of hearing, now much better since hearing aids were brought in from home -resolved hypercarbia #RSV bronchiolitis and E. coli aspiration pneumonia -DuoNeb every 8 hours as needed. -s/p course of methylprednisolone. -Mainstay of treatment for RSV bronchiolitis is supportive -Ceftriaxone for E. coli aspiration pneumonia. #Septic shock secondary to RSV bronchiolitis and E. coli aspiration pneumonia, resolved -Sputum culture positive for E. coli pansensitive. Blood cultures no growth to date. -Continue ceftriaxone for total 7d course #Rapid A. fib with RVR -back on beta-connor for rate control at 25Q6H PO metop tartrate -Continue with Eliquis #KATHRYN, resolved -Was likely 2/2 due to ischemic ATN given that patient is requiring vasopressor support and was transiently hypotensive on admission. -We will continue to monitor urine output. #Hypertension -currently restarting metop at 25Q6. Will add the rest of his antihypertensives as indicated DVT prophylaxis: Eliquis GI prophylaxis: Protonix CODE STATUS: Full code VS,Fishbone, I+O VS, Fishbone, I+O Laboratory Tests 08/14/21 03:36 08/14/21 19:21 Vital Signs Date Time Temp Pulse Resp B/P (MAP) Pulse Ox O2 Delivery O2 Flow Rate FiO2 08/14/21 19:00 124 24 160/92 (114) 95 Aerosol Mask 35 08/14/21 15:01 98.2 08/11/21 02:38 6.0 I&O- Last 24 Hours up to 6 AM 08/14/21 06:00 Intake Total 635 ml Output Total 1645 ml Balance -1010 ml BOOM SHEPARD MD Aug 14, 2021 20:59
[2021-08-15] VITALS (18 sets, daily range): BP systolic 114–197; BP diastolic 75–109
[2021-08-15] MEDS: KCL 20MEQ IN D5/0.45NS 1000ML 1,000 ML IV SCH ×4 (01:25→23:39)
[2021-08-15] MEDS: LEVALBUTEROL 1.25 MG/0.5 ML CONCENTRATE NEB INH SCH ×4 (02:40→19:21)
[2021-08-15] MEDS: METOPROLOL TART 25 MG TABLET PO SCH ×4 (06:48→23:40)
[2021-08-15] MEDS: SENOKOT S TAB PO SCH (09:00)
[2021-08-15] MEDS: APIXABAN 5 MG TAB (ELIQUIS) PO SCH ×2 (09:42→20:27)
[2021-08-15] MEDS: PANTOPRAZOLE 40MG VIAL (C9113 PER 1) IV SCH (10:05)
[2021-08-15] MEDS: cefTRIAXone SOD 1 GM in D5W MINI-BAG PLUS 50 ML IV SCH (10:06)
--- NOTE | 2021-08-15 10:24 | IPNPDOC ---
Text Note Date of Service The patient was seen on 08/15/21. NOTE SUBJECTIVE: -No acute events. Taking his PO meds OK with apple sauce, speech onboard for re- eval OBJECTIVE: General Exam: No Acute Distress Eyes: Anicteric, EOMI ENT: Atraumatic Neck: Supple, no JVD or lymphadenopathy Chest : Continues to have bilateral rhonchi throughout Heart: Irregular, no noted murmurs, tachycardia has improved Abdomen: Slightly distended, nontender, soft, hypoactive Extremities: no Edema, WWP Neuro: EOMI, CN3-12 intact Psych: calm, following commands Labs: AM labs are still pending. Otherwise reviewed prior Assessment: 80-year-old gentleman with past medical history of hypertension, atrial fibrillation on Eliquis, and GERD who presented to the emergency department with a complaint of shortness of breath and admitted for RSV bronchiolitis and pneumonia with course c/b hypercarbic hypoxemic respiratory failure requiring intubation now extubated. Plan #Hypercarbic hypoxemic respiratory failure: hypercarbia has resolved, and hypoxemia is improving -Secondary to RSV bronchiolitis and aspiration E. coli pneumonia -extubated 08/15, on aerosol mask, will continue to downtitrate. -Pending swallow eval recs #Encephalopathy -Much improved. No agitation, following commands. Is very hard of hearing, now much better since hearing aids were brought in from home -resolved hypercarbia #RSV bronchiolitis and E. coli aspiration pneumonia -DuoNeb every 8 hours as needed. -s/p course of methylprednisolone. -Mainstay of treatment for RSV bronchiolitis is supportive -Ceftriaxone for E. coli aspiration pneumonia. Day 6 of 7 #Septic shock secondary to RSV bronchiolitis and E. coli aspiration pneumonia, resolved -Sputum culture positive for E. coli pansensitive. Blood cultures no growth to date. -Continue ceftriaxone for total 7d course, ending 08/16 #Rapid A. fib with RVR -back on beta-connor for rate control at 25Q6H PO metop tartrate -Continue with Eliquis #KATHRYN, resolved -Was likely 2/2 due to ischemic ATN given that patient is requiring vasopressor support and was transiently hypotensive on admission. -We will continue to monitor urine output. #Hypertension -currently restarting metop at 25Q6. Will add the rest of his antihypertensives as indicated DVT prophylaxis: Eliquis GI prophylaxis: Protonix CODE STATUS: Full code VS,Fishbone, I+O VS, Fishbone, I+O Laboratory Tests 08/14/21 19:21 Vital Signs Date Time Temp Pulse Resp B/P (MAP) Pulse Ox O2 Delivery O2 Flow Rate FiO2 08/15/21 06:48 94 140/75 08/15/21 06:00 99 08/15/21 04:00 97.0 22 High Flow Cannula 5.0 08/15/21 04:00 35 I&O- Last 24 Hours up to 6 AM0 08/15/21 06:00 Intake Total 1550 ml Output Total 1590 ml Balance -40 ml BOOM SHEPARD MD Aug 15, 2021 07:46
[2021-08-15 10:43] LABS: BASO # 0.1 10^3/uL (0.0-0.2); BASO % 0.5 % (0.0-1.0); EOS # 0.2 10^3/uL (0.0-0.5); HEMATOCRIT 38.4 % (42.0-52.0); HEMOGLOBIN 11.9 g/dl (13.5-17.5); LYMPH # 0.7 10^3/uL (1.5-5.0); LYMPH % 7.1 % (24.0-44.0); MEAN CORPUSCULAR HEMOGLOBIN 30.1 pg (27.0-33.0); MONO # 0.6 10^3/uL (0.0-0.8); MONO % 6.2 % (2.0-8.0); NEUTROPHILS # 8.4 10^3/uL (1.5-8.5); PLATELET COUNT, AUTOMATED 280 10^3/uL (150-450); RED BLOOD COUNT 3.96 10^6/uL (4.30-6.10); WHITE BLOOD COUNT 10.2 10^3/uL (4.0-10.0)
[2021-08-15 11:16] LABS: ALBUMIN 1.9 GM/DL (3.2-5.2); ALT/SGPT 124 U/L (12-78); BILIRUBIN,TOTAL 0.4 MG/DL (0.2-1.0); BLOOD UREA NITROGEN 32 MG/DL (7-18); CALCIUM LEVEL 8.5 MG/DL (8.8-10.2); CARBON DIOXIDE LEVEL 27 MEQ/L (21-32); CHLORIDE LEVEL 119 MEQ/L (98-107); CHOLESTEROL LEVEL 157 MG/DL (< 200); CPK CREATINE PHOSPHOKINASE 114 U/L (39-308); GLOMERULAR FILTRATION RATE > 60.0 (>35); GLUCOSE, FASTING 161 MG/DL (70-100); LDH LACTATE DEHYDROGENASE 312 U/L (87-241); PHOSPHORUS LEVEL 2.8 MG/DL (2.5-4.9); POTASSIUM SERUM 3.4 MEQ/L (3.5-5.1); SODIUM LEVEL 149 MEQ/L (136-145); TOTAL PROTEIN 5.4 GM/DL (6.4-8.2); TRIGLYCERIDES LEVEL 96 MG/DL (<150)
--- NOTE | 2021-08-15 11:39 | REP ---
INDICATION: Resp Failure. COMPARISON: Multiple the latest yesterday at 6:57 a.m. TECHNIQUE: Port FINDINGS: The technique utilized in obtaining the radiograph has magnified the cardiac silhouette and accentuated the interstitial markings. The cardiomediastinal silhouette is stable. There is cardiomegaly accentuated by technique. There are left basilar opacities status quo. Once again, there is a diffuse increase in the interstitial markings status quo. The nasogastric and endotracheal tube have been removed. The central venous catheter has been removed. There is no significant change in appearance of the osseous structures. IMPRESSION: 1. Removal of tubes and line. 2. Persistent opacities as described above without evidence of significant change <Electronically signed by Gio Moore > 08/15/21 [id number]
[2021-08-15] MEDS ORDERED: METOPROLOL 5 MG/5 ML VIAL IV STA (21:58)
[2021-08-16] VITALS (16 sets, daily range): BP systolic 114–152; BP diastolic 9–116; O2SAT 91
[2021-08-16 00:54] LABS: CLOSTRIDIUM DIFFICILE PCR POSITIVE (NEGATIVE)
[2021-08-16] MEDS: LEVALBUTEROL 1.25 MG/0.5 ML CONCENTRATE NEB INH SCH ×4 (02:00→19:55)
[2021-08-16] MEDS ORDERED: metroNIDAZOLE 500 MG in IV 1 EA IV SCH (04:00)
[2021-08-16] MEDS ORDERED: METOPROLOL 5 MG/5 ML VIAL IV ONE (05:00)
[2021-08-16 05:42] LABS: BASO # 0.1 10^3/uL (0.0-0.2); BASO % 0.6 % (0.0-1.0); EOS # 0.3 10^3/uL (0.0-0.5); EOS % 3.8 % (0.0-3.0); HEMATOCRIT 39.2 % (42.0-52.0); HEMOGLOBIN 12.2 g/dl (13.5-17.5); LYMPH # 0.6 10^3/uL (1.5-5.0); MEAN CORPUSCULAR HEMOGLOBIN 30.3 pg (27.0-33.0); MEAN CORPUSCULAR HGB CONC 31.1 g/dl (32.0-36.5); MEAN CORPUSCULAR VOLUME 97.3 fl (80.0-96.0); MONO # 0.7 10^3/uL (0.0-0.8); MONO % 8.1 % (2.0-8.0); NEUTROPHILS # 7.2 10^3/uL (1.5-8.5); NEUTROPHILS % 79.9 % (36.0-66.0); PLATELET COUNT, AUTOMATED 274 10^3/uL (150-450); RED BLOOD COUNT 4.03 10^6/uL (4.30-6.10)
[2021-08-16] MEDS: VANCOMYCIN ORAL SOL 250MG/5ML ORAL SYRINGE PO SCH ×3 (05:50→17:23)
[2021-08-16 06:07] LABS: ALBUMIN 1.8 GM/DL (3.2-5.2); ALT/SGPT 103 U/L (12-78); BILIRUBIN,TOTAL 0.5 MG/DL (0.2-1.0); BLOOD UREA NITROGEN 24 MG/DL (7-18); CALCIUM LEVEL 8.4 MG/DL (8.8-10.2); CARBON DIOXIDE LEVEL 30 MEQ/L (21-32); CHLORIDE LEVEL 119 MEQ/L (98-107); CHOLESTEROL LEVEL 150 MG/DL (< 200); CPK CREATINE PHOSPHOKINASE 64 U/L (39-308); CREATININE FOR GFR 0.81 MG/DL (0.70-1.30); GLOMERULAR FILTRATION RATE > 60.0 (>35); GLUCOSE, FASTING 150 MG/DL (70-100); LDH LACTATE DEHYDROGENASE 293 U/L (87-241); PHOSPHORUS LEVEL 2.8 MG/DL (2.5-4.9); POTASSIUM SERUM 3.5 MEQ/L (3.5-5.1); SODIUM LEVEL 148 MEQ/L (136-145); TOTAL PROTEIN 5.3 GM/DL (6.4-8.2); TRIGLYCERIDES LEVEL 94 MG/DL (<150)
[2021-08-16 06:23] LABS: ABG BASE EXCESS -3.1 (-2.0-2.0); ABG HCO3 22.3 MEQ/L (22.0-26.0); ABG O2 SATURATION 99.5 % (95.0-99.0); ABG PARTIAL PRESSURE CO2 41.3 mmHg (35.0-45.0); ABG PARTIAL PRESSURE O2 217.1 mmHg (75.0-100.0); ABG TOTAL CO2 23.6 MEQ/L (23.0-31.0); ABG pH (ARTERIAL) 7.351 UNITS (7.350-7.450)
[2021-08-16] MEDS: SENOKOT S TAB PO SCH (08:36)
[2021-08-16] MEDS: APIXABAN 5 MG TAB (ELIQUIS) PO SCH ×2 (08:38→21:55)
[2021-08-16] MEDS: KCL 20MEQ IN D5/0.45NS 1000ML 1,000 ML IV SCH (08:38)
[2021-08-16] MEDS ORDERED: VARIBAR PUDDING 40% w/v 230ML TUBE As Ordered ONE (08:51)
[2021-08-16] MEDS ORDERED: E-Z-PAQUE 96% w/w SUSP 176GM BTL As Ordered ONE (08:51)
[2021-08-16] MEDS ORDERED: BARIUM SULFATE 700 MG TABLET (E-Z-DISK) As Ordered ONE (08:51)
[2021-08-16] MEDS ORDERED: VARIBAR NECTAR 40% w/v 240ML SUSP BTL As Ordered ONE (08:51)
--- NOTE | 2021-08-16 08:57 | REP ---
INDICATION: Resp Failure. COMPARISON: Portable chest, 08/15/2021. TECHNIQUE: AP portable chest image was obtained. FINDINGS: There is cardiomegaly noted. There is worsening bilateral interstitial and alveolar lung disease. There is bibasilar atelectasis or pneumonia. There are bilateral pleural effusions. IMPRESSION: Worsening interstitial and alveolar lung disease consistent with pneumonia/congestive heart failure. There are bilateral pleural effusions. <Electronically signed by Carlos A Archuleta > 08/16/21 [id number]
[2021-08-16] MEDS: cefTRIAXone SOD 1 GM in D5W MINI-BAG PLUS 50 ML IV SCH (09:13)
[2021-08-16] MEDS: METOPROLOL TART 25 MG TABLET PO SCH ×2 (11:38→17:24)
[2021-08-16] MEDS: KCL 20MEQ IN D5/0.2%NS 1000ML 1,000 ML IV SCH ×2 (11:39→20:36)
[2021-08-16 17:17] LABS: BLOOD UREA NITROGEN 21 MG/DL (7-18); CALCIUM LEVEL 8.4 MG/DL (8.8-10.2); CARBON DIOXIDE LEVEL 30 MEQ/L (21-32); CHLORIDE LEVEL 116 MEQ/L (98-107); CREATININE FOR GFR 0.81 MG/DL (0.70-1.30); GLOMERULAR FILTRATION RATE > 60.0 (>35); GLUCOSE, FASTING 123 MG/DL (70-100); POTASSIUM SERUM 3.6 MEQ/L (3.5-5.1); SODIUM LEVEL 146 MEQ/L (136-145)
[2021-08-16] MEDS ORDERED: SALIVA SUBSTITUTE(MOUTHKOTE) BTL MT PRN (18:45)
--- NOTE | 2021-08-16 18:46 | IPNPDOC ---
Text Note Date of Service The patient was seen on 08/16/21. NOTE SUBJECTIVE: -No acute events. -Has diarrhea, sent GI panel yesterday and overnight was confirmed to have C- diff colitis, was started on PO vanc OBJECTIVE: General Exam: No Acute Distress Eyes: Anicteric, EOMI ENT: Atraumatic Neck: Supple, no JVD or lymphadenopathy Chest : Continues to have bilateral rhonchi throughout Heart: Irregular, no noted murmurs, tachycardia has improved Abdomen: Slightly distended, nontender, soft, hypoactive Extremities: no Edema, WWP Neuro: EOMI, CN3-12 intact Psych: calm Labs: Reviewed WBC 9 Hgb 12.2 platelets 274 na 148 K 3.5 Cr 0.81 Cdiff positive Assessment: 80-year-old gentleman with past medical history of hypertension, atrial fi brillation on Eliquis, and GERD who presented to the emergency department with a complaint of shortness of breath and admitted for RSV bronchiolitis and pneumonia with course c/b hypercarbic hypoxemic respiratory failure requiring intubation now extubated with course c/b cdiff colitis. Plan #Cdiff colitis: -Day 1 of PO vanc 250Q6 -cdiff precautions -IVF as noted below #hyperNa i/s/o Cdiff colitis and functionally poor PO with dehydration -20meqK in D50.2%NS at 100cc/hr -check BMP at 1600h #Hypercarbic hypoxemic respiratory failure: hypercarbia has resolved, and hypoxemia is improving -Secondary to RSV bronchiolitis and aspiration E. coli pneumonia, on ceftriaxone -extubated 08/15, on aerosol mask, will continue to downtitrate. -On honey thickened liquids diet #Encephalopathy -Much improved. No agitation, following commands. Is very hard of hearing, now much better since hearing aids were brought in from home -resolved hypercarbia #RSV bronchiolitis and E. coli aspiration pneumonia -DuoNeb every 8 hours as needed. -s/p course of methylprednisolone. -Mainstay of treatment for RSV bronchiolitis is supportive -Ceftriaxone for E. coli aspiration pneumonia. Day 7 of 7 #Septic shock secondary to RSV bronchiolitis and E. coli aspiration pneumonia, resolved -Sputum culture positive for E. coli pansensitive. Blood cultures no growth to date. -Continue ceftriaxone for total 7d course, ending 08/16 #Rapid A. fib with RVR -back on beta-connor for rate control at 25Q6H PO metop tartrate -Continue with Eliquis #KATHRYN, resolved -Was likely 2/2 due to ischemic ATN given that patient is requiring vasopressor support and was transiently hypotensive on admission. -We will continue to monitor urine output. #Hypertension -currently restarting metop at 25Q6. Will add the rest of his antihypertensives as indicated DVT prophylaxis: Eliquis GI prophylaxis: Protonix CODE STATUS: Full code VS,Fishbone, I+O VS, Fishbone, I+O Laboratory Tests 08/15/21 10:23 08/16/21 05:21 Vital Signs Date Time Temp Pulse Resp B/P (MAP) Pulse Ox O2 Delivery O2 Flow Rate FiO2 08/16/21 05:49 92 114/67 08/16/21 05:00 95 08/16/21 04:00 40 08/16/21 04:00 97.2 25 Aerosol Mask 10.0 I&O- Last 24 Hours up to 6 AM 08/16/21 06:00 Intake Total 2570 ml Output Total 1020 ml Balance 1550 ml BOOM SHEPARD MD Aug 16, 2021 10:09
--- NOTE | 2021-08-16 21:28 | REPVR ---
PROCEDURE INFORMATION: Exam: XR Chest Exam date and time: 08/16/2021 8:59 PM Age: 80 years old Clinical indication: Device placement; Ng tube; Additional info: Ngt placement TECHNIQUE: Imaging protocol: XR of the chest. Views: 1 view. COMPARISON: CR PORTABLE CHEST X-RAY 08/16/2021 6:41 AM FINDINGS: Tubes, catheters and devices: NG tube extends into the gastric fundus Lungs: Lungs are diffusely hypoexpanded. No evidence of pulmonary edema. No focal consolidation or parenchymal lung mass. Pleural spaces: Bilateral pleural effusions and basilar atelectasis. No pneumothorax. Heart/Mediastinum: Heart and mediastinal contours are normal, given the degree of inflation. Bones/joints: Osseous structures show no concerning abnormality. Soft tissues: No asymmetry of the extrathoracic soft tissues. IMPRESSION: 1. Nasogastric tube extends into the gastric fundus. 2. Hypoinflated lungs with bilateral pleural effusions and basilar atelectasis or consolidation but with improvement and interstitial pattern no longer suggesting active pulmonary edema Electronically signed by: Rohan Vasquez On 08/16/2021 21:28:03 PM
[2021-08-17] VITALS (19 sets, daily range): BP systolic 97–161; BP diastolic 52–101
[2021-08-17] MEDS: VANCOMYCIN ORAL SOL 250MG/5ML ORAL SYRINGE PO SCH ×2 (00:12→06:00)
[2021-08-17] MEDS: METOPROLOL TART 25 MG TABLET PO SCH ×4 (00:12→17:28)
[2021-08-17] MEDS: LEVALBUTEROL 1.25 MG/0.5 ML CONCENTRATE NEB INH SCH ×2 (01:22→07:53)
[2021-08-17 01:55] LABS: ABG HCO3 26.2 MEQ/L (22.0-26.0); ABG O2 SATURATION 91.3 % (95.0-99.0); ABG PARTIAL PRESSURE O2 69.1 mmHg (75.0-100.0); ABG STANDARD HCO3 20.3 MEQ/L (22.0-26.0); ABG TOTAL CO2 28.6 MEQ/L (23.0-31.0)
[2021-08-17 01:58] LABS: ABG PARTIAL PRESSURE CO2 80.5 mmHg (35.0-45.0)
[2021-08-17] MEDS ORDERED: NALOXONE INJ 0.4MG/1ML VIAL (J2310 PER 1MG) IV STA (02:25)
--- NOTE | 2021-08-17 03:00 | IPNPDOC ---
Text Note Date of Service The patient was seen on 08/17/21. NOTE TIME OF SERVICE 210AM CC TIME 40 MIN #Acute hypoxemic hypercapnic respiratory failure I was informed by that had become more lethargic and his O2 sats were persistently in the high 80s on 10L despite removing the NG tube. ABG pH 7.13, PCO2 80s, PO2 69. At the time of my assessment the patient was lethargic his GCS was 6. I talked with his brother Anjum Fuller and sister Manju Fuller via phone who agreed to change the code status to DNR trail of intubation. Per d/w we will try BIPAP w AVAPs and repeat the blood gas in 1 hour if the patient has not improved we will call the Anesthesiologist exhibition carver to intubate the patient. #Metabolic Encephalopathy Likely due to hypercapnia. Will give one dose of Narcan and consider CT head to r/o CVA VS,Fishbone, I+O VS, Fishbone, I+O Laboratory Tests 08/16/21 05:21 08/16/21 16:38 Vital Signs Date Time Temp Pulse Resp B/P (MAP) Pulse Ox O2 Delivery O2 Flow Rate FiO2 08/17/21 00:12 116 157/87 08/17/21 00:00 97.8 20 88 Aerosol Mask 10.0 60 I&O- Last 24 Hours up to 6 AM 08/17/21 06:00 Intake Total 1550 ml Output Total 775 ml Balance 775 ml PATRICIA MG MD Aug 17, 2021 03:00
[2021-08-17 03:50] LABS: ABG BASE EXCESS -3.8 (-2.0-2.0); ABG HCO3 25.5 MEQ/L (22.0-26.0); ABG O2 SATURATION 99.2 % (95.0-99.0); ABG PARTIAL PRESSURE CO2 66.1 mmHg (35.0-45.0); ABG PARTIAL PRESSURE O2 243.7 mmHg (75.0-100.0); ABG STANDARD HCO3 21.4 MEQ/L (22.0-26.0); ABG TOTAL CO2 27.5 MEQ/L (23.0-31.0); ABG pH (ARTERIAL) 7.204 UNITS (7.350-7.450)
--- NOTE | 2021-08-17 04:13 | IPNPDOC ---
Text Note Date of Service The patient was seen on 08/17/21. NOTE TIME OF SERVICE 350AM Repeat ABG pH 7.204, PCO66, PO2 243 RT Erin reduced the FiO2 At the time of my assessment the patient's was arousable for a longer peroid of time with painful stimuli so we will c/w the current course of action. PATRICIA MG MD Aug 17, 2021 04:13
[2021-08-17 05:16] LABS: ABG BASE EXCESS -4.9 (-2.0-2.0); ABG HCO3 23.1 MEQ/L (22.0-26.0); ABG O2 SATURATION 99.3 % (95.0-99.0); ABG PARTIAL PRESSURE CO2 55.6 mmHg (35.0-45.0); ABG PARTIAL PRESSURE O2 186.4 mmHg (75.0-100.0); ABG STANDARD HCO3 20.5 MEQ/L (22.0-26.0); ABG TOTAL CO2 24.8 MEQ/L (23.0-31.0); ABG pH (ARTERIAL) 7.236 UNITS (7.350-7.450)
--- NOTE | 2021-08-17 05:56 | REPVR ---
PROCEDURE INFORMATION: Exam: XR Chest Exam date and time: 08/17/2021 4:23 AM Age: 80 years old Clinical indication: Other: Hypoxemia TECHNIQUE: Imaging protocol: XR of the chest. Views: 1 view. COMPARISON: CR PORTABLE CHEST X-RAY 08/16/2021 8:44 PM FINDINGS: Tubes, catheters and devices: NG tube has been removed. Overlying EKG leads. Lungs: Lung volumes remain low. The degree of pulmonary vascular congestion appears unchanged. There is persistent hazy and confluent opacity within the lower lungs, left greater than right, with blunting of the costophrenic angles, consistent with bilateral pleural effusions and atelectasis/consolidation. Pleural spaces: No evidence of pneumothorax. Heart/Mediastinum: Cardiomediastinal silhouette is stable. Bones/joints: Bones are stable. IMPRESSION: Hypoventilatory change with persistent pulmonary vascular congestion and bilateral pleural effusions with underlying atelectasis/consolidation. No significant change. Electronically signed by: Almas Riojas On 08/17/2021 05:56:23 AM
[2021-08-17 06:25] LABS: BASO % 0.5 % (0.0-1.0); EOS # 0.1 10^3/uL (0.0-0.5); EOS % 0.6 % (0.0-3.0); HEMATOCRIT 40.1 % (42.0-52.0); HEMOGLOBIN 12.2 g/dl (13.5-17.5); LYMPH # 0.7 10^3/uL (1.5-5.0); LYMPH % 8.1 % (24.0-44.0); MEAN CORPUSCULAR HEMOGLOBIN 30.6 pg (27.0-33.0); MEAN CORPUSCULAR HGB CONC 30.4 g/dl (32.0-36.5); MEAN CORPUSCULAR VOLUME 100.5 fl (80.0-96.0); MONO # 0.7 10^3/uL (0.0-0.8); MONO % 7.5 % (2.0-8.0); NEUTROPHILS # 7.2 10^3/uL (1.5-8.5); NEUTROPHILS % 82.7 % (36.0-66.0); PLATELET COUNT, AUTOMATED 278 10^3/uL (150-450); RED BLOOD COUNT 3.99 10^6/uL (4.30-6.10); WHITE BLOOD COUNT 8.7 10^3/uL (4.0-10.0)
[2021-08-17 06:49] LABS: ALBUMIN 1.7 GM/DL (3.2-5.2); ALT/SGPT 88 U/L (12-78); BILIRUBIN,TOTAL 0.4 MG/DL (0.2-1.0); BLOOD UREA NITROGEN 23 MG/DL (7-18); CALCIUM LEVEL 8.4 MG/DL (8.8-10.2); CARBON DIOXIDE LEVEL 31 MEQ/L (21-32); CHLORIDE LEVEL 114 MEQ/L (98-107); CHOLESTEROL LEVEL 141 MG/DL (< 200); CPK CREATINE PHOSPHOKINASE 39 U/L (39-308); CREATININE FOR GFR 0.96 MG/DL (0.70-1.30); GLOMERULAR FILTRATION RATE > 60.0 (>35); GLUCOSE, FASTING 127 MG/DL (70-100); LDH LACTATE DEHYDROGENASE 267 U/L (87-241); PHOSPHORUS LEVEL 3.9 MG/DL (2.5-4.9); POTASSIUM SERUM 4.9 MEQ/L (3.5-5.1); SODIUM LEVEL 147 MEQ/L (136-145); TOTAL PROTEIN 5.1 GM/DL (6.4-8.2); TRIGLYCERIDES LEVEL 86 MG/DL (<150)
[2021-08-17] MEDS: KCL 20MEQ IN D5/0.2%NS 1000ML 1,000 ML IV SCH (08:00)
[2021-08-17] MEDS ORDERED: PANTOPRAZOLE 40MG VIAL (C9113 PER 1) IV SCH (09:00)
[2021-08-17] MEDS: SENOKOT S TAB PO SCH (09:00)
[2021-08-17] MEDS: APIXABAN 5 MG TAB (ELIQUIS) PO SCH (09:00)
--- NOTE | 2021-08-17 09:59 | IPNPDOC ---
Text Note Date of Service The patient was seen on 08/17/21. NOTE SUBJECTIVE: -NGT was taken out overnight, with inability to take PO including meds, became unresponsive, ABG showed significant respiratory acidosis with hypercarbia and he was placed on BiPAP with mild improvement to 7.22/66. This morning he continues to be lethargic, we are repeat an ABG. Overnight Dr. Miller spoke with both sister Judith and brother Anjum who decided to make him DNR/trial intubation. -I spoke both with Judith and Anjum this morning and discussed the aspiration despite honey thickened liquids, and how he is unlikely to tolerate repeat intubations at this time and how critically ill he is with myopathy, encephalopathy and C.diff. At this time, they expressed understanding and have expressed that they would like to make him MAINTENANCE PERSON. His nurse, Ana witnessed this decision over the phone, MOLST was updated and orders were updated. OBJECTIVE: General Exam: Critically ill appearing, lethargic, now on nasal canula, tachypneic Eyes: Anicteric, EOMI ENT: Atraumatic Neck: Supple, no JVD or lymphadenopathy Chest : Has diffuse crackles and rhonchi throughout Heart: Irregular, no noted murmurs Abdomen: Slightly distended, nontender, soft, hypoactive Extremities: no Edema, WWP Neuro: EOMI, CN3-12 intact Psych: calm Labs: Reviewed overnight ABG 7.13/80.5--> 7.236/55.6 WBC 8.7 hgb 12.2 platelets 278 na 147 K 4.9 Cr 0.96 Assessment: 80-year-old gentleman with past medical history of hypertension, atrial fibrillation on Eliquis, and GERD who presented to the emergency department with a complaint of shortness of breath and admitted for RSV bronchiolitis and pneumonia with course c/b hypercarbic hypoxemic respiratory failure requiring intubation now extubated with course c/b cdiff colitis and aspiration w/ hypercarbic hypoxemic respiratory failure. I spoke with his siblings who are the HCPs, Judith and Anjum this morning and discussed the aspiration despite honey thickened liquids, and how he is unlikely to tolerate repeat intubations at this time and how critically ill he is with myopathy, encephalopathy and C.diff. At this time, they expressed understanding and have expressed that they would like to make him MAINTENANCE PERSON. His nurse, Ana witnessed this decision over the phone, MOLST was updated and orders were updated. Plan -Transitioning to MAINTENANCE PERSON Active problem list #Hypercarbic hypoxemic respiratory failure i/s/o aspiration #RSV bronchiolitis and aspiration E. coli pneumonia #Cdiff colitis #hyperNa i/s/o Cdiff colitis and functionally poor PO with dehydration #Metabolic Encephalopathy #Septic shock secondary to RSV bronchiolitis and E. coli aspiration pneumonia, resolved #Rapid A. fib with RVR, resolved with BB therapy #KATHRYN, resolved #Hypertension #Critical illness myopathy CODE STATUS: MAINTENANCE PERSON VS,Fishbone, I+O VS, Fishbone, I+O Laboratory Tests 08/16/21 16:38 08/17/21 05:37 Vital Signs Date Time Temp Pulse Resp B/P (MAP) Pulse Ox O2 Delivery O2 Flow Rate FiO2 08/17/21 07:15 97 16 106/59 (75) 98 NIPPV (BIPAP/CPAP) 08/17/21 04:30 80 08/17/21 04:00 97.8 08/17/21 00:00 10.0 I&O- Last 24 Hours up to 6 AM 08/17/21 06:00 Intake Total 1950 ml Output Total 975 ml Balance 975 ml BOOM SHEPARD MD Aug 17, 2021 09:59
[2021-08-17] MEDS ORDERED: SCOPOLAMINE 1MG TRANSDERMAL PATCH TOP PRN ×2 (10:00)
[2021-08-17] MEDS ORDERED: AMPICILLIN SOD/SULBACTAM SOD 3 GM in D5W MINI-BAG PLUS 100 ML IV SCH (10:00)
[2021-08-17] MEDS ORDERED: LORazepam 2 MG/ML VIAL IV PRN ×2 (10:00)
[2021-08-17] MEDS ORDERED: ONDANSETRON 4MG/2ML VIAL IV PRN ×2 (10:00)
[2021-08-17] MEDS ORDERED: MORPHINE 2 MG/ML 1ML VIAL (J2270) IV PRN ×2 (10:00)
--- NOTE | 2021-08-18 16:07 | DS.PDOC ---
Discharge Summary General Date of Admission Aug 02, 2021 at 10:39 Date of Discharge 08/17/21 Attending Physician: BOOM SHEPARD MD Discharge Summary PROCEDURES PERFORMED DURING STAY: 1. Endotracheal intubation 08/02 2. TLC placement 08/02 ADMITTING DIAGNOSES: Hypoxia DISCHARGE DIAGNOSES: Cardiac arrest 2/2/ respiratory arrest i/s/o hypercarbic hypoxemic respiratory failure i/s/o aspiration PNA and RSV bronchiolitis C. difficile colitis Hypernatremia Hypercarbic hypoxemic respiratory failure Metabolic Encephalopathy RSV bronchiolitis E. coli aspiration pneumonia Septic shock secondary to RSV bronchiolitis and E. coli aspiration pneumonia Rapid A. fib with RVR KATHRYN GERD COMPLICATIONS/CHIEF COMPLAINT: Hypoxia. HISTORY OF PRESENT ILLNESS: 80-year-old gentleman with past medical history of hypertension, atrial fibrillation on Eliquis, and GERD who presented to the emergency department with a complaint of shortness of breath approximately for a week and it had been progressively gotten worse. He reported that he normally was able to walk around his property and lay flat but lately had not been able to. He denied waking up from sleep feeling short of breath. He also reported having loose stools for 2 to 3 days without any blood in the stool. He otherwise denied fever, chills, cough, chest pain, abdominal pain, nausea and vomiting. HOSPITAL COURSE: In the emergency room department he was noted to have an elevated BNP and had electrolyte abnormalities. He also tested positive for RSV. After receiving 40 mg of IV Lasix he reported he felt better.He was admitted for RSV bronchiolitis and later found to have superimposed E.coli pneumonia. As noted above, while the emergency department, there was concern of fluid overload and decompensated congestive heart failure and he was given a dose of Lasix 40 mg with a robust response. He initially required oxygen 6 L nasal cannula but throughout the day in the emergency department, he became progressively lethargic and encephalopathic and blood gas showed severe respiratory acidosis with pH of 6.9, PCO2 197 and was ultimately intubated for airway protection i/s/o hypercapnic/hypoxic respiratory failure. He initially had broad spectrum antibiotics that were narrowed to ceftriaxone for CAP having grown E.coli on sputum culture twice. He was extubated on 08/14 successfully to aerosol mask and later nasal canula but his course was c/b aspiration events despite evaluation and recommendation of honey thickened liquids. He also had worsening diarrhea and found to have Cdiff colitis for which she was started on PO vanc. He had worsening hypercarbia and hypoxemia on the night on 08/16 into 08/17 with associated encephalopathy and was placed on BiPAP. On speaking with family, his brother Anjum and sister Judith who were the HCPs made him DNR with trial intubation but my mid morning 08/17 with only slight improvement in the hypercarbia and transitioned back to nasal canula, we had further discussion about his high risk for further aspiration and dysphagia, encephalopathy, poor reserve for further intubation and ongoing C.diff colitis and they ultimately decided to make him [employer]RE [employer]. He on 08/17 at 8.58pm likely from respiratory arrest that precipitated cardiac arrest, 2/2 hypercarbic hypoxemic respiratory failure 2/2/ aspiration PNA. DISCHARGE MEDICATIONS: Please see below. ALLERGIES: Please see below. PHYSICAL EXAMINATION ON DISCHARGE: I WAS NOT PRESENT AT TIME OF EXPIRATION LABORATORY DATA: Please see below. IMAGIN/15 CXR: Cardiomegaly and chronic appearing changes. No obvious focal consolidation, effusion, or pneumothorax. Skeletal structures intact. IMPRESSION: Cardiomegaly and chronic appearing changes. No focal consolidation or effusion. 08/02 CTA chest: Pulmonary arteries: Central pulmonary arteries show no intraluminal defect suggestive of clot. Aorta: Thoracic aorta is ectatic and atherosclerotic. No focal aneurysm or dissection. Lungs: Consolidative changes in the lung bases with atelectasis, and patchy bilateral multifocal lung infiltrates concerning for COVID-19 pneumonia. Pleural spaces: Small dependent pleural effusions with no pneumothorax. Heart: Peripheral pulmonary artery evaluation limited by cardiac and respiratory motion artifact. Multi-chamber cardiac dilatation is noted. No evidence of acute pulmonary edema. Mediastinal space: Esophagus is mildly distended throughout its length. No obvious mass. Lymph nodes: Prominent mediastinal lymph nodes. Bones/joints: Bony structures show no acute fracture or destructive process. Soft tissues: No asymmetric abnormality of the extrathoracic soft tissues. IMPRESSION: 1. No evidence of acute, central pulmonary embolus. Peripheral pulmonary arterial evaluation is limited by cardiac and respiratory motion artifact. 2. Multifocal lung infiltrates suggesting a multifocal infectious process such as COVID-19 pneumonia, with areas of posterior basilar consolidation and likely reactive mediastinal lymph nodes. 3. Fullness of the esophagus over long segment, difficult to assess given the degree of motion Ct head: Brain: No intracranial mass, focal mass effect or midline shift. No acute intracranial hemorrhage. Mild decreased attenuation in periventricular/centrum semiovale white matter. No focal effacement of cortical sulci to indicate acute cortical infarct. Prominent ventricles and CSF spaces suggest parenchymal volume loss. Paranasal sinuses: Mild pansinus mucosal thickening is present. Mastoid air cells: Mastoid air cells are normally aerated. Orbital cavity: Visualized globes and orbits are unremarkable. Bones/joints: No calvarial fracture or destructive process. Soft tissues: No focal extracranial soft tissue swelling. IMPRESSION: 1. No acute intracranial abnormality. 2. Atrophy and chronic microangiopathic change in supratentorial white matter. CT A/P: Liver, gallbladder, spleen, pancreas, adrenal glands, and kidneys are unchanged. There is no significant change in appearance of the abdominal aorta or para- regions. There is right-sided and transverse colon distension. There is no free fluid or free air. There is content in the rectosigmoid vault. There is a Pizano balloon decompressing the urinary bladder. There is sigmoid colon diverticulosis. There is no evidence of a mass or adenopathy. The tip of the nasogastric tube is seen in the stomach fundal region. Multiple vertebral body compression fractures are identified. Some represent a change from the prior exam. IMPRESSION: 1. Probable colonic ileus. No definite evidence of obstruction at this time. 2. Chronic osseous changes. 3. Other findings as described above. 08/17 CXR: Tubes, catheters and devices: NG tube has been removed. Overlying EKG leads. Lungs: Lung volumes remain low. The degree of pulmonary vascular congestion appears unchanged. There is persistent hazy and confluent opacity within the lower lungs, left greater than right, with blunting of the costophrenic angles, consistent with bilateral pleural effusions and atelectasis/consolidation. Pleural spaces: No evidence of pneumothorax. Heart/Mediastinum: Cardiomediastinal silhouette is stable. Bones/joints: Bones are stable. IMPRESSION: Hypoventilatory change with persistent pulmonary vascular congestion and bilateral pleural effusions with underlying atelectasis/consolidation. No significant change. PROGNOSIS: ACTIVITY: DIET: DISCHARGE PLAN: DISPOSITION: 20 . DISCHARGE INSTRUCTIONS: ITEMS TO FOLLOWUP ON ON OUTPATIENT: DISCHARGE CONDITION: TIME SPENT ON DISCHARGE: 35 minutes. Vital Signs/I&Os Vital Signs Date Time Temp Pulse Resp B/P (MAP) Pulse Ox O2 Delivery O2 Flow Rate FiO2 08/17/21 19:40 18 08/17/21 15:44 141 68 Nasal Cannula 4.0 08/17/21 10:01 155/101 (119) 40 08/17/21 08:01 97.9 I&O- Last 24 Hours up to 6 AM 08/18/21 06:00 Intake Total 100 ml Output Total 550 ml Balance -450 ml Microbiology Microbiology 08/13/21 Blood Culture - Final, Complete NO GROWTH AFTER 5 DAYS 08/09/21 Gram Stain - Final, Complete 08/09/21 Sputum Culture - Final, Complete Escherichia Coli Discharge Medications Scheduled Amlodipine Besylate (Amlodipine Besylate) 5 Mg Tab, 5 MG PO DAILY, (Reported) Apixaban (Eliquis) 5 Mg Tablet, 5 MG PO BID, (Reported) Atorvastatin Calcium (Atorvastatin Calcium) 40 Mg Tablet, 40 MG PO DAILY, (Reported) Lisinopril (Lisinopril) 2.5 Mg Tab, 2.5 MG PO DAILY, (Reported) Metoprolol Succinate (Metoprolol Succinate) 25 Mg Tab.er.24h, 25 MG PO DAILY, (Reported) Pantoprazole Sodium (Pantoprazole Sodium) 40 Mg Tablet.dr, 40 MG PO DAILY, (Reported) Allergies Coded Allergies: No Known Allergies (Unverified , 03/09/15) BOOM SHEPARD MD Aug 18, 2021 16:07
== END 2021-08-17 22:21 | disposition expired | DRG 870 ==
LOC: M ED 06:56 → M ED INP 10:39 → ENRESERV 17:02 → M PCU 23:27 → M MS5PR 08-17 17:31 → M PCU 08-17 17:44
PROVIDERS: ADMIT Internal Medicine; ATTEND Internal Medicine
PROC: 5A1955Z Respiratory Ventilation, Greater than 96 Consecutive Hours (ICD-10-PCS; principal; 2021-08-02)
PROC: 0BH17EZ Insertion of Endotracheal Airway into Trachea, Via Natural or Artificial Opening (ICD-10-PCS; 2021-08-02)
PROC: 02HV33Z Insertion of Infusion Device into Superior Vena Cava, Percutaneous Approach (ICD-10-PCS; 2021-08-02)
DX: A41.9 Sepsis, unspecified organism (principal); J96.01 Acute respiratory failure with hypoxia; J96.02 Acute respiratory failure with hypercapnia; J12.1 Respiratory syncytial virus pneumonia; R65.21 Severe sepsis with septic shock; N17.0 Acute kidney failure with tubular necrosis; J69.0 Pneumonitis due to inhalation of food and vomit; J15.5 Pneumonia due to Escherichia coli; G93.41 Metabolic encephalopathy; E87.2 Acidosis; K56.7 Ileus, unspecified; A04.72 Enterocolitis due to Clostridium difficile, not specified as recurrent; E87.1 Hypo-osmolality and hyponatremia; G72.81 Critical illness myopathy; Z51.5 Encounter for palliative care; Z66 Do not resuscitate; R41.0 Disorientation, unspecified; J20.5 Acute bronchitis due to respiratory syncytial virus; I50.9 Heart failure, unspecified; I48.91 Unspecified atrial fibrillation; I11.0 Hypertensive heart disease with heart failure; K21.9 Gastro-esophageal reflux disease without esophagitis; E83.42 Hypomagnesemia; E87.6 Hypokalemia; K59.00 Constipation, unspecified; H91.93 Unspecified hearing loss, bilateral; Z79.01 Long term (current) use of anticoagulants; Z79.899 Other long term (current) drug therapy